=== PATIENT | female | born 1965 | race Caucasian/White ===

== ENCOUNTER 2017-03-05 17:36 | Emergency (ER) | payer MEDICARE, BC ==
[~2017-03-05] VITALS: Ht 177.8 cm; Wt 140.0 kg
[~2017-03-05 17:36] MED LIST: ACET650T5 PO; ALBU2.5V7 AEROSOL; ASEN10TA9 SL; ASPI-557 PO; ASPI325T PO; ATOR20TA PO; BACL10TA PO; BUPR-51 PO; BUPR300T33 PO; BUSP15TA37 PO; CETI10TA56 PO; ERGO400C PO; FLUT16SP EA NOSTRIL; FLUT1DIS INH; GABA-305 PO; GLIP5TAB11 PO; IBUP-1547 PO; MAGN400T6 PO; METF10002 PO; MIDO10TA PO; MIDO5TAB PO; NIAC100045 PO; OMEG1CAP79 PO; ONDA-55 PO; PANT20TA13 PO; QUET300T44 PO; SUMA50TA18 PO; TOPI200T8 PO; TRAM50TA4 PO; elderberry PO
[2017-03-05 17:40] VITALS: Ht 177.8 cm; Wt 140.0 kg
--- OUTSIDE RECORDS SUMMARY | 2017-03-05 17:40 | XMS REPORT | Continuity of Care Document ---
Author Author [facility] Organization [facility] Address Unknown Phone Unavailable Care Team Providers Care Remote Encoding Operations Supervisor Name Role Phone CALISTA MARSHALL MD Primary Care Physician [phone] Insurance Providers Payer Name Policy Number Subscriber Name Relationship [employer] Hmo [id number] Ellyn Rodríguez 20 Self Advance Directives Directive Response Recorded Date/Time Advanced Directives Type None 11/08/14 10:40am Problems Medical Problems Problem Onset Date Status Exacerbation of intermittent asthma Unknown Active Bronchitis Unknown Active Exacerbation of intermittent asthma Unknown Active Thrombocytopenia Unknown Active Pharyngitis, acute Unknown Active Exacerbation of intermittent asthma Unknown Active Ketonuria Unknown Active Exacerbation of intermittent asthma Unknown Active Medications Medication Dose Route Sig Days/Qty Instructions Order Date Discontinued Date Status Ipratropium/Albuterol Sulfate Mg INH NEEDED 12/17/10 06/17/13 Discontinued Albuterol Sulfate INH 12/17/10 06/17/13 Discontinued Budesonide 12/17/10 11/06/12 Discontinued Theophylline Anhydrous 450 Mg PO TWICE A DAY 12/17/10 11/06/12 Discontinued Buspirone Hcl 15 Mg PO TWICE A DAY 12/17/10 11/06/12 Discontinued Bupropion Hcl 150 Mg PO TWICE A DAY 12/17/10 06/17/13 Discontinued Duloxetine Hcl 60 Mg PO DAILY 12/17/10 11/06/12 Discontinued Insulin Glargine 180 Mg SQ BEDTIME 12/17/10 11/06/12 Discontinued Insulin Lispro SQ THREE TIMES A DAY 12/17/10 06/17/13 Discontinued Metformin Hcl 1,000 Mg PO TWICE A DAY 12/17/10 11/06/12 Discontinued Topiramate 400 Mg PO TWICE A DAY 12/17/10 Active Pregabalin 150 Mg PO TWICE A DAY 12/17/10 11/06/12 Discontinued Pregabalin 100 Mg PO DAILY 12/17/10 11/06/12 Discontinued Tizanidine Hcl 4 Mg PO THREE TIMES A DAY 12/17/10 Active Quetiapine Fumarate 100 Mg PO TWICE A DAY 12/17/10 Active Quetiapine Fumarate 300 Mg PO BEDTIME 12/17/10 11/06/12 Discontinued Cetirizine Hcl 10 Mg PO DAILY 12/17/10 Active Atorvastatin Calcium 20 Mg PO DAILY 12/17/10 11/06/12 Discontinued Metoclopramide Hcl 5 Mg PO FOUR TIMES DAILY 12/17/10 06/17/13 Discontinued Lansoprazole 30 Mg PO TWICE A DAY 12/17/10 11/06/12 Discontinued Salmeterol Xinafoate/Fluticasone INH BID PRN 11/06/12 06/17/13 Discontinued Buspirone Hcl 15 Mg PO TWICE A DAY 11/06/12 Active Omeprazole 20 Mg PO DAILY 11/06/12 06/17/13 Discontinued Quetiapine Fumarate 400 Mg PO BEDTIME 11/06/12 Active Lovastatin 40 Mg PO BEDTIME 11/06/12 06/17/13 Discontinued Metoprolol Tartrate 25 Mg TWICE A DAY 11/06/12 06/17/13 Discontinued Clobetasol Propionate 25 Ml TP DAILY 11/06/12 06/17/13 Discontinued Nystatin 15 Gm TP NEEDED 11/06/12 06/17/13 Discontinued Fluconazole 150 Mg PO DAILY PRN 11/06/12 06/17/13 Discontinued Sumatriptan Succinate 50 Mg PO 11/06/12 Active Glucosa [place] 2KCL/Chondroitin [place] 1 Cap PO TWICE A DAY 11/06/12 Discontinued Fluticasone Propionate 16 Gm NS DAILY 11/06/12 06/17/13 Discontinued Acetaminophen PO TID PRN 11/06/12 Active Bupropion Hcl 150 Mg PO DAILY 06/17/13 Active Cholecalciferol 800 Unit PO DAILY 06/17/13 Active Metformin HCl 1 Tab PO TWICE DAILY WITH MEALS Take one tablet, by mouth , twice daily with meals 11/08/14 Active Glipizide 11 Tab PO TWICE A DAY 11/08/14 Active Amoxicillin 1 Cap PO TWICE A DAY 11/08/14 Active Levofloxacin 500 Mg PO BEFORE BREAKFAST 10 Qty 11/08/14 Active Clotrimazole 1 Tab PO 5 TIMES DAILY 10 Days 11/08/14 Active Social History Social History Problem Response Recorded Date/Time Hx Substance Use No 11/08/2014 10:57am Hx Alcohol Use No 11/08/2014 10:57am Query Response Start Date Stop Date Smoking Status Never smoker Hospital Discharge Instructions No hospital discharge instructions. Plan of Care No plan of care. Functional Status Query Response Date Recorded Physical Hygiene Self November 08, 2014 10:57am Disabilities Visual November 08, 2014 10:57am Devices Used Glasses Cane November 08, 2014 10:57am Dressing Self November 08, 2014 10:57am Ambulation Self November 08, 2014 10:57am Diet Self November 08, 2014 10:57am Mental Status Alert Oriented November 08, 2014 10:57am Disabilities Visual November 08, 2014 10:57am Devices Used Glasses Cane November 08, 2014 10:57am Physical Hygiene Self November 08, 2014 10:57am Dressing Self November 08, 2014 10:57am Ambulation Self November 08, 2014 10:57am Diet Self November 08, 2014 10:57am Allergies, Adverse Reactions, Alerts Allergen Type Severity Reaction Status Last Updated hydrocodone bit Adverse Reaction Unknown ITCHING Active 11/08/14 Diazepam Allergy Unknown HAD TO HAVE ROMAZICON WITH IT Active 11/08/14 Latex Adverse Reaction Unknown ANALYPHAXYS Active 11/08/14 [place] Adverse Reaction Intermediate Vomiting Active 11/08/14 Egg Yolk Adverse Reaction Intermediate Active 12/18/10 Immunizations Name Given Type Hx Influenza Vaccination Y 2013 Historical Hx Influenza Vaccination Y 2013 Historical Vital Signs Acute Vital Signs Vital Response Date/Time Temperature (Fahrenheit) 100.4 deg F (96.8 - 99.1) Temperature (Calculated Celsius) 38.30683 degrees C (36.0 - 37.3) Pulse Rate (adult) 104 bpm (60 - 100) Respiratory Rate 24 breaths/min (10 - 20) O2 Sat by Pulse Oximetry 96 % (90 - 100) Blood Pressure 141/82 mm Hg Height 5 ft 10 in Weight 305 lb Body Mass Index 43.0 kg/m^2 Results Test Source Date Result Interp. Ref. Range Comments Activated Partial Thromboplast Time February 02, 2012 4:45pm 32.9 SEC N 24- 36 Alanine Aminotransferase (ALT/SGPT) November 08, 2014 11:31am 47 U/L N 9- 52 Albumin November 08, 2014 11:31am 4.3 G/DL N 3.5-5.0 Albumin/Globulin Ratio November 08, 2014 11:31am 1.1 RATIO N 1.1-2.2 Alkaline Phosphatase November 08, 2014 11:31am 183 U/L H 38-126 Anion Gap November 08, 2014 11:31am 17 MEQ/L H 5-15 Aspartate Amino Transf (AST/SGOT) November 08, 2014 11:31am 112 U/L H 14- 36 B-Type Natriuretic Peptide December 17, 2010 3:48pm 17 PG/ML N 15-100 BUN/Creatinine Ratio November 08, 2014 11:31am 31 RATIO H 6-26 Band Neutrophils # November 08, 2014 11:31am 0.2 T/MM3 - Band Neutrophils % November 08, 2014 11:31am 2.0 % N 0-6 Basophils # (Auto) November 06, 2012 5:35pm 0.1 T/MM3 N 0-0.2 Basophils (%) (Auto) November 06, 2012 5:35pm 0.9 % N 0-2 Blood Urea Nitrogen November 08, 2014 11:31am 25.0 MG/DL H 7-17 C-Peptide August 30, 2012 9:42am Ref lab rpt scanned - [facility]--- 06/10 0845 ---CPEP previously reported as: SENT OUT Calcium Level November 08, 2014 11:31am 8.7 MG/DL N 8.4-10.2 Calculated Osmolality November 08, 2014 11:31am 288 MOSM/KG H 261-280 Carbon Dioxide Level November 08, 2014 11:31am 15 MEQ/L L 22-30 Chloride Level November 08, 2014 11:31am 109 MEQ/L H 98-107 Cholesterol Level July 10, 2012 11:30am 155 MG/DL N 132-199 Cholesterol/HDL Ratio July 10, 2012 11:30am 4.0 RATIO N 0-4.0 Creatine Kinase MB February 03, 2012 4:36pm 1.6 NG/ML N 0-3.4 Creatinine November 08, 2014 11:31am 0.8 MG/DL N 0.7-1.2 D-Dimer February 02, 2012 4:45pm < 150 NG/ML 0-230 <224 NG/ML= PRESUMPTIVE NEGATIVE FOR PE OR DVT>224 NG/ML=ADDITIONAL EVALUATION FOR PE OR DVT RECOMMENDED Differential Total Cells Counted December 19, 2010 4:55am 100 % - Eosinophils # (Auto) November 06, 2012 5:35pm 0.2 T/MM3 N 0-0.5 Eosinophils # (Manual) November 08, 2014 11:31am 0.5 T/MM3 N 0-0.5 Eosinophils % (Manual) November 08, 2014 11:31am 6.0 % H 0-4 Eosinophils (%) (Auto) November 06, 2012 5:35pm 3.0 % N 0-4 Erythrocyte Sedimentation Rate August 04, 2009 9:46am 53 MM/HR H 0-20 Free Thyroxine August 04, 2009 9:46am 0.80 NG/DL N 0.78-2.19 Globulin November 08, 2014 11:31am 3.9 G/DL H 2.4-3.6 Glucose Level November 08, 2014 11:31am 333 MG/DL H 65-110 Glutamic Acid Decarboxylate Ab August 30, 2012 9:42am Ref lab rpt scanned - --- 09/06/12 0845 ---GLUTA previously reported as: SENT OUT Group A Streptococcus Screen November 08, 2014 11:20am Negative - Strep culture confirmation to follow Hematocrit November 08, 2014 11:31am 34.8 % L 36-46 Hemoglobin November 08, 2014 11:31am 11.6 GM/DL L 12-16 Hemoglobin A1c July 10, 2012 11:30am 11.4 % DH 6-7 <6.0 NON- DIABETIC RANGE6.0-7.0 ADA THERAPEUTIC RANGE >7.0 ACTION SUGGESTED Influenza Type A Antigen November 08, 2014 11:33am Negative - Negative for Flu A protein antigen. Assay sensitivity is90%. Influenza Type B Antigen November 08, 2014 11:33am Negative - Negative for Flu B protein antigen. Assay sensitivity is90%. LDL Cholesterol, Calculated July 10, 2012 11:30am 116 N 66-159 Lymphocytes # (Auto) November 06, 2012 5:35pm 3.3 T/MM3 N 1-4.8 Lymphocytes # (Manual) November 08, 2014 11:31am 2.8 T/MM3 N 1-4.8 Lymphocytes % (Manual) November 08, 2014 11:31am 31.0 % N 23-45 Lymphocytes (%) (Auto) November 06, 2012 5:35pm 41.0 % N 23-45 Magnesium Level December 18, 2010 4:45am 2.3 MG/DL N 1.6-2.3 Mean Corpuscular Hemoglobin November 08, 2014 11:31am 32.0 UUG N 26-34 Mean Corpuscular Hemoglobin Concent November 08, 2014 11:31am 33.3 GM/DL N 31-37 Mean Corpuscular Volume November 08, 2014 11:31am 96.1 UM3 N 80-100 Mean Platelet Volume November 08, 2014 11:31am 10.7 UM3 N 9.4-12.4 Metamyelocytes # December 19, 2010 4:55am 0.1 T/MM3 - Metamyelocytes % December 19, 2010 4:55am 1.0 % H 0-0 Monocytes # (Auto) November 06, 2012 5:35pm 0.5 T/MM3 N 0-0.8 Monocytes # (Manual) December 19, 2010 4:55am 0.7 T/MM3 N 0-0.8 Monocytes % (Manual) December 19, 2010 4:55am 5.0 % N 0-9.0 Monocytes (%) (Auto) November 06, 2012 5:35pm 6.3 % N 0-9.0 Neutrophils # (Auto) November 06, 2012 5:35pm 3.9 T/MM3 N 1.8-7.7 Neutrophils # (Manual) November 08, 2014 11:31am 5.5 T/MM3 N 1.8-7.7 Neutrophils % (Manual) November 08, 2014 11:31am 60.0 % N 33-66 Neutrophils (%) (Auto) November 06, 2012 5:35pm 48.6 % N 33-66 Nucleated Red Blood Cells December 19, 2010 4:55am 2 - Parathyroid Hormone (Intact) February 20, 2010 10:19am 77.1 PG/ML N 8.2- 83.5 Platelet Count November 08, 2014 11:31am 61 T/MM3 L 130-400 Potassium Level November 08, 2014 11:31am 4.4 MEQ/L N 3.6-5 Prothromb Time International Ratio February 02, 2012 4:45pm 1.16 H 0.86- 1.10 THERAPUTIC RANGE=2.00-3.00 FOR ANTI-THROMBOSIS THERAPUTIC RANGE=2.50- 3.50 FOR IMPLANTED VALVE RDW Standard Deviation November 08, 2014 11:31am 50.2 FL N 36.9-50.2 Rapid Plasma Reagin August 04, 2009 9:46am Nonreactive - Red Blood Count November 08, 2014 11:31am 3.62 M/MM3 L 4.00-5.20 Reference Lab Test Name August 30, 2012 9:42am Ref lab rpt scanned - --- 09/06/12 0845 ---SO previously reported as: SENT OUT Sodium Level November 08, 2014 11:31am 141 MEQ/L N 134-144 Theophylline Level December 18, 2010 4:45am 8.1 UG/ML L 10-20 COMMENT may use blood in lab - if not able, may run in amCOMMENT may use blood in lab, if not able - run tommorrow am Thyroid Stimulating Hormone (TSH) April 10, 2012 9:10am 1.29 MIU/L N 0.47 -4.68 Total Bilirubin November 08, 2014 11:31am 0.60 MG/DL N 0.20-1.30 Total Creatine Kinase February 03, 2012 4:36pm 79 U/L N 30-135 Total Protein November 08, 2014 11:31am 8.2 G/DL N 6.3-8.2 Triglycerides Level July 10, 2012 11:30am 400 MG/DL H 35-135 Troponin I November 08, 2014 11:31am < 0.012 ng/ml 0-0.12 Urine Bacteria November 08, 2014 1:20pm None seen - Has specimen been collected/obtained? Y Urine Bilirubin November 08, 2014 1:20pm Negative - Has specimen been collected/obtained? Y Urine Blood November 08, 2014 1:20pm Negative - Has specimen been collected/obtained? Y Urine Collection Type November 08, 2014 1:20pm Cleancatch-midstream - Has specimen been collected/obtained? Y Urine Color November 08, 2014 1:20pm Yellow - Has specimen been collected/obtained? Y Urine Drug Screen (T) April 10, 2012 9:15am Sent out - Urine Glucose (UA) November 08, 2014 1:20pm Negative - Has specimen been collected/obtained? Y Urine Ketones November 08, 2014 1:20pm 2+ H - Has specimen been collected/obtained? Y Urine Leukocyte Esterase November 08, 2014 1:20pm Negative - Has specimen been collected/obtained? Y Urine Microalbumin January 03, 2012 8:40am < 5.0 MG/L 0-17 Urine Nitrite November 08, 2014 1:20pm Negative - Has specimen been collected/obtained? Y Urine Protein November 08, 2014 1:20pm 1+ H - Has specimen been collected/obtained? Y Urine RBC November 08, 2014 1:20pm 0-1 /HPF - Has specimen been collected/obtained? Y Urine Specific [place] November 08, 2014 1:20pm 1.020 - Has specimen been collected/obtained? Y Urine Squamous Epithelial Cells November 08, 2014 1:20pm 0-5 - Has specimen been collected/obtained? Y Urine Turbidity November 08, 2014 1:20pm Clear - Has specimen been collected/obtained? Y Urine Urobilinogen November 08, 2014 1:20pm 0.2 EU/DL - Has specimen been collected/obtained? Y Urine WBC November 08, 2014 1:20pm 1-3 /HPF - Has specimen been collected/obtained? Y Urine pH November 08, 2014 1:20pm 6.0 - Has specimen been collected/ obtained? Y VLDL Cholesterol July 10, 2012 11:30am 80.0 MG/DL H 0-28 Vitamin B12 Level August 04, 2009 9:46am 967 PG/ML H 239-931 Vitamin D 25-Hydroxy February 20, 2010 10:19am Send out - White Blood Count November 08, 2014 11:31am 9.1 T/MM3 N 4.5-11.0 Chemistry Specimen Hemolysis November 08, 2014 11:31am 46 H 0-25 0-25: No Hemolysis.26-70: Slight Hemolysis - can falsely elevate K and Urine Protein. 71-285: Moderate Hemolysis - can falsely elevate K, Troponin I, CA 19-9, PTH, CSF GLucose, and Urine Protein, and can falsely decrease Phenytoin. 286-999: Gross Hemolysis - can falsely elevate K, Troponin I, CA 19-9, PTH, CSF Glucose, and Urine Protine, and can falsely decrease Phenytoin. Recommend specimen recollection. Glucometer March 23, 2013 9:50am 345 mg/dL H 65-110 Lab Scanned Report September 06, 2012 8:50am REFERENCE LAB [id number] - HDL Cholesterol Direct July 10, 2012 11:30am 39 MG/DL L 40-60 Turbidity November 08, 2014 11:31am < 20 0-20 Reactive Lymphocytes % November 08, 2014 11:31am 1.0 % H 0-0 Glomerular Filtration Rate Calc November 08, 2014 11:31am 77 - Reactive Lymphocytes # November 08, 2014 11:31am 0.1 T/MM3 H 0-0 Immature Granulocyte # (Auto) November 06, 2012 5:35pm 0.02 T/MM3 N 0.00- 0.03 Immature Granulocyte % (Auto) November 06, 2012 5:35pm 0.2 % N 0.0-0.5 Venous Blood Lactate November 08, 2014 11:31am 1.3 MMOL/L N 0.6-2.2 Icterus Index November 08, 2014 11:31am < 2 0-7 Urine Microscopic Not Indicated December 17, 2010 4:55pm Not indicated - Has specimen been collected/obtained? Y Group A Streptococcus Culture Throat December 17, 2010 4:41pm Urine Culture Urine, Clean Catch Voided February 20, 2010 10:06am Gram Positive Don JESSICA Preparation Mouth November 08, 2014 12:31pm Name: ELLYN RODRÍGUEZ Unit #: [id number] : [id number] Sex: F Loc / Svc: ED DOS: 11/08/14 Signed Report #: [id number] DIAGNOSTIC IMAGING REPORT TYPE OF EXAM: CHEST, PA & LATERAL Dictated By: SHAAN PRUETT MD INDICATION: ITS.REASON: dyspnea, cough CHEST 2-VIEWS UPRIGHT (PA & LAT): COMPARISON: February 02, 2012 and December 17, 2010 FINDINGS: There is questionable increased opacity in the medial right lung base seen on the frontal view only. The remainder of the lung green appear clear. There is no pleural effusion or pneumothorax. The heart size, mediastinal contours and pulmonary vascularity are within normal limits. There is no significant skeletal abnormality. IMPRESSION: Questionable increased opacity in the right infrahilar area of the medial right lung base seen on one view only. This could represent atelectasis, bronchitis or pneumonia. . Procedures No known history of procedures. Encounters Encounter Location Date/Time Departed Emergency Room [facility] 11/08/14 10:37am Recent Diagnosis
--- OUTSIDE RECORDS SUMMARY | 2017-03-05 17:41 | XMS REPORT ---
Author Author Abelino Boothe Organization [facility] Address [address] [place] [address] Care Team Providers Care Harbor Tug Captain Name Role Phone Abelino Boothe Unavailable [phone] PROBLEMS Type Condition ICD9-CM Code [id number] Code Onset Dates Condition Status SNOMED Code Problem Hypotension I95.9 Active 20403013 Problem Chest discomfort R07.89 Active 241948388 Problem Dyspnea on effort R06.09 Active 63112058 Problem Dyslipidemia E78.5 Active 427752096 ALLERGIES Unknown Allergies SOCIAL HISTORY No smoking Hx information available PLAN OF CARE VITAL SIGNS MEDICATIONS Unknown Medications RESULTS No Results PROCEDURES No Known procedures IMMUNIZATIONS No Known Immunizations
--- OUTSIDE RECORDS SUMMARY | 2017-03-05 17:42 | XMS REPORT | Continuity of Care Document ---
Author Author [facility] Organization [facility] Address Unknown Phone Unavailable Care Team Providers Care Email Marketing Coordinator Name Role Phone CALISTA MARSHALL MD Primary Care Physician [phone] Insurance Providers Payer Name Policy Number Subscriber Name Relationship [employer]humana Gold Hmo [id number] Ellyn Farr 20 Self Advance Directives Directive Response Recorded Date/Time Advanced Directives Type None 11/09/14 9:14pm Ordered Resuscitation Status Full Code 11/09/14 8:56pm Resuscitation Documents on File No 11/09/14 10:21pm Chief Complaint and Reason for Visit Chief Complaint DEHYDRATION,PHARYNGITIS Reason for Visit Bronchitis Pharyngitis Dehydration Diabetes mellitus type 2, uncontrolled Fibromyalgia Hyperosmolality with hypernatremia Morbid obesity with BMI of 40.0-44.9, adult SIRS (systemic inflammatory response syndrome) Wound, open, hip or thigh Hypokalemia Metabolic encephalopathy Metabolic acidosis Protein calorie malnutrition Thrombocytopenia Problems Medical Problems Problem Onset Date Status Exacerbation of intermittent asthma Unknown Active Bronchitis Unknown Active Exacerbation of intermittent asthma Unknown Active Thrombocytopenia Unknown Active Pharyngitis, acute Unknown Active Exacerbation of intermittent asthma Unknown Active Ketonuria Unknown Active Exacerbation of intermittent asthma Unknown Active Bronchitis Unknown Active Pharyngitis Unknown Active Dehydration Unknown Active Diabetes mellitus type 2, uncontrolled Unknown Active Fibromyalgia Unknown Active Hyperosmolality with hypernatremia Unknown Active Morbid obesity with BMI of 40.0-44.9, adult Unknown Active SIRS (systemic inflammatory response syndrome) Unknown Active Wound, open, hip or thigh Unknown Active Hypokalemia Unknown Active Metabolic encephalopathy Unknown Active Metabolic acidosis Unknown Active Protein calorie malnutrition Unknown Active Thrombocytopenia Unknown Active Medications Medication Dose Route Sig [...] 11 Tab PO TWICE A DAY 11/08/14 11/15/14 Discontinued Amoxicillin 1 Cap PO TWICE A DAY 11/08/14 11/15/14 Discontinued Levofloxacin 500 Mg PO BEFORE BREAKFAST 10 Qty 11/08/14 11/15/14 Discontinued Clotrimazole 1 Tab PO 5 TIMES DAILY 10 Days 11/08/14 Active Insulin Glargine,Hum.rec.anlog 10 Unit SQ BEDTIME 30 Days 11/15/14 Active Ondansetron HCl 4 Mg PO Every 6 Hours For NAUSEA 20 Qty 11/15/14 Active Potassium Chloride 20 Meq PO TWICE A DAY 14 Days 11/15/14 Active Social History Social History Problem Response Recorded Date/Time Hx Substance Use No 11/09/2014 4:59pm Hx Alcohol Use No 11/09/2014 4:59pm Has the pt used tobacco in the last 12 months No 11/09/2014 10:24pm Tobacco Usage none 11/10/2014 10:35am Query Response Start Date Stop Date Smoking Status Never smoker Hospital Discharge Instructions Instructions: Care Instructions: Reason for Hospitalization: Dehydration, mental status change I was in the hospital because (patient own words): "THROAT PAIN" Discharge Diet: Diabetic regular Discharge Activity: as tolerated Follow Up Appointments: Follow up with Dr. Marshall on Feb 3rd at 10:15AM. Patient Instructions: n/a Wound/Incision Care: n/a Durable Medical Equipment: n/a Notify Physician If: fever > 101, worsening confusion General Information: n/a Condition at time of discharge: Good Plan of Care Discharge Date 11/15/14 4:30pm Disposition 01 DISCHARGED HOME, SELF-CARE Instructions/Education Provided DI for Dehydration -- Adult DI for Diabetes Type 2 DI for Viral Pharyngitis Prescriptions See Medications Section Functional Status Query Response Date Recorded Physical Hygiene Assist November 15, 2014 2:23pm Disabilities None November 15, 2014 2:23pm Devices Used None November 15, 2014 2:23pm Dressing Assist November 15, 2014 2:23pm Ambulation Assist November 15, 2014 2:23pm Diet Assist November 15, 2014 2:23pm Mental Status Alert November 15, 2014 2:23pm Disabilities None November 15, 2014 2:23pm Devices Used None November 15, 2014 2:23pm Physical Hygiene Assist November 15, 2014 2:23pm Dressing Assist November 15, 2014 2:23pm Ambulation Assist November 15, 2014 2:23pm Diet Assist November 15, 2014 2:23pm Allergies, Adverse Reactions, Alerts Allergen Type Severity Reaction Status Last Updated hydrocodone bit Adverse Reaction Unknown ITCHING Active 11/08/14 Diazepam Allergy Unknown HAD TO HAVE ROMAZICON WITH IT Active 11/08/14 Latex Adverse Reaction Unknown ANALYPHAXYS Active 11/08/14 [place] Adverse Reaction Intermediate Vomiting Active 11/08/14 Egg Yolk Adverse Reaction Intermediate Active 12/18/10 Immunizations Name Given Type Hx Influenza Vaccination Y UNSURE-PATIENT IS CONFUSED Historical Hx Pneumococcal Vaccination Y UNSURE-PATIENT IS CONFUSED Historical Hx Influenza Vaccination Y UNSURE-PATIENT IS CONFUSED Historical Vital Signs Acute Vital Signs Vital Response Date/Time Temperature (Fahrenheit) 97.4 deg F (96.8 - 99.1) Temperature (Calculated Celsius) 36.22651 degrees C (36.0 - 37.3) Temperature Source Oral Pulse Rate (adult) 107 bpm (60 - 100) Respiratory Rate 17 breaths/min (10 - 20) O2 Sat by Pulse Oximetry 94 % (90 - 100) Oxygen Delivery Method Room Air Blood Pressure 127/54 mm Hg Blood Pressure Source Automatic Cuff Height 5 ft 10 in Weight 305 lb Body Mass Index 43.0 kg/m^2 Results Test Source Date Result Interp. Ref. Range Comments Platelet Antibody Comment November 12, 2014 7:01pm See below - Antibody reacts with glycoprotein Ia/IIa, probable antibodyspecificity HPA-5b [ Bra]. ADDITIONAL INFORMATION Method: Jenae Based Assay Performing Laboratory CLIA# [id number] Test Performed by: [place] [address] Command And Control: Blayne Nascimento M.D. Platelet Antibody performed at [facility], [address] [place] [address] Head Of Marketing Analytics Oleksandr Jeffers MD Anti-Platelet Antibody November 12, 2014 7:01pm Positive - Reference Range:Not Applicable Absolute Reticulocyte Count November 11, 2014 8:32am 0.0162 T/MM3 L 0.0300-0.0900 COMMENT Add on - blood already in lab Activated Partial Thromboplast Time November 11, 2014 8:32am 30.8 SEC N 24-36 COMMENT Add on - blood already in lab Alanine Aminotransferase (ALT/SGPT) November 12, 2014 7:01pm 71 U/L H 9- 52 Albumin November 12, 2014 7:01pm 3.8 G/DL N 3.5-5.0 Albumin/Globulin Ratio November 12, 2014 7:01pm 1.1 RATIO N 1.1-2.2 Alkaline Phosphatase November 12, 2014 7:01pm 129 U/L H 38-126 Ammonia November 12, 2014 7:01pm 18 UMOL/L N 9-33 Anion Gap November 15, 2014 4:42am 9 MEQ/L N 5-15 Anisocytosis November 15, 2014 4:42am 1+ - Anti-Centromere Antibody November 12, 2014 7:01pm 5 U/mL - Anti-Double Strand DNA Antibody November 12, 2014 7:01pm 4 U/mL - Anti-Nuclear Antibody (LAB) November 12, 2014 7:01pm Positive H - RENO Panel, Quantitative performed at [facility], [address] [place] [id number] Head Of Marketing Analytics Hansel Irwin DO Anti-Nuclear Antibody Interpret November 12, 2014 7:01pm see below - < 100 U/mL: [id number] U/mL: Indeterminate >120 U/mL: Positive Aspartate Amino Transf (AST/SGOT) November 12, 2014 7:01pm 81 U/L H 14- 36 B-Type Natriuretic Peptide December 17, 2010 3:48pm 17 PG/ML N 15-100 BUN/Creatinine Ratio November 15, 2014 4:42am 11 RATIO N 6-26 Band Neutrophils # November 15, 2014 4:42am 0.2 T/MM3 - Band Neutrophils % November 15, 2014 4:42am 2.0 % N 0-6 Basophils # (Auto) November 06, 2012 5:35pm 0.1 T/MM3 N 0-0.2 Basophils # (Manual) November 15, 2014 4:42am 0.1 T/MM3 N 0-0.2 Basophils % (Manual) November 15, 2014 4:42am 1.0 % N 0-2 Basophils (%) (Auto) November 06, 2012 5:35pm 0.9 % N 0-2 Blood Smear Pathologist Review November 11, 2014 8:33am Sent for review - COMMENT Add on - blood already in lab Blood Urea Nitrogen November 15, 2014 4:42am 9.0 MG/DL N 7-17 C-Peptide August 30, 2012 9:42am Ref lab rpt scanned - AMS--- 06/10 0845 ---CPEP previously reported as: SENT OUT C-Reactive Protein November 13, 2014 4:27am 48.9 MG/L H 0-9 Calcium Level November 15, 2014 4:42am 8.1 MG/DL L 8.4-10.2 Calculated Osmolality November 15, 2014 4:42am 265 MOSM/KG N 261-280 Carbon Dioxide Level November 15, 2014 4:42am 20 MEQ/L L 22-30 Chemistry Specimen Hemolysis November 15, 2014 4:42am < 15 0-25 0-25: No Hemolysis.26-70: Slight Hemolysis - can falsely elevate K and Urine Protein. 71-285: Moderate Hemolysis - can falsely elevate K, Troponin I, CA 19-9, PTH, CSF GLucose, and Urine Protein, and can falsely decrease Phenytoin. 286-999: Gross Hemolysis - can falsely elevate K, Troponin I, CA 19-9, PTH, CSF Glucose, and Urine Protine, and can falsely decrease Phenytoin. Recommend specimen recollection. Chloride Level November 15, 2014 4:42am 109 MEQ/L H 98-107 Cholesterol Level July 10, 2012 11:30am 155 MG/DL N 132-199 Cholesterol/HDL Ratio July 10, 2012 11:30am 4.0 RATIO N 0-4.0 Conjugated Bilirubin November 12, 2014 7:01pm 0.00 MG/DL N 0.00-0.30 Creatine Kinase MB February 03, 2012 4:36pm 1.6 NG/ML N 0-3.4 Creatinine November 15, 2014 4:42am 0.8 MG/DL N 0.7-1.2 D-Dimer November 11, 2014 4:15pm 1193 NG/ML H 0-230 <230 NG/ML D-DU= PRESUMPTIVE NEGATIVE FOR PE OR DVT>230 NG/ML D-DU=ADDITIONAL EVAL FOR PE OR DVT RECOMMENDED Differential Total Cells Counted December 19, 2010 4:55am 100 % - Eosinophils # (Auto) November 06, 2012 5:35pm 0.2 T/MM3 N 0-0.5 Eosinophils # (Manual) November 15, 2014 4:42am 0.3 T/MM3 N 0-0.5 Eosinophils % (Manual) November 15, 2014 4:42am 3.0 % N 0-4 Eosinophils (%) (Auto) November 06, 2012 5:35pm 3.0 % N 0-4 Erythrocyte Sedimentation Rate November 12, 2014 7:01pm 69 MM/HR H 0-20 Ferritin November 14, 2014 4:30am 845 NG/ML H 6-137 COMMENT Add on - blood already in lab Fibrinogen November 11, 2014 8:32am 347 MG/DL N 135-357 COMMENT Add on - blood already in lab Free Thyroxine August 04, 2009 9:46am 0.80 NG/DL N 0.78-2.19 Globulin November 12, 2014 7:01pm 3.5 G/DL N 2.4-3.6 Glomerular Filtration Rate Calc November 15, 2014 4:42am 77 - Glucometer November 15, 2014 11:10am 133 mg/dL H 65-110 Glucose Level November 15, 2014 4:42am 96 MG/DL N 65-110 Glutamic Acid Decarboxylate Ab August 30, 2012 9:42am Ref lab rpt scanned - --- 09/06/12 0845 ---GLUTA previously reported as: SENT OUT Group A Streptococcus Screen November 08, 2014 11:20am Negative - Strep culture confirmation to follow HDL Cholesterol Direct July 10, 2012 11:30am 39 MG/DL L 40-60 Haptoglobin November 11, 2014 8:32am 286 mg/dL H - Haptoglobin performed at [facility], [address], [place] [id number] Director Hansel Irwin, DO Hematocrit November 15, 2014 4:42am 27.1 % L 36-46 Hemoglobin November 15, 2014 4:42am 8.9 GM/DL L 12-16 Hemoglobin A1c November 09, 2014 5:36pm 8.9 % H 6-7 <6.0 NON-DIABETIC RANGE6.0-7.0 ADA THERAPEUTIC RANGE >7.0 ACTION SUGGESTED Hepatitis C Antibody November 11, 2014 8:32am Negative - COMMENT Add on - blood already in lab Histone Antibodies November 12, 2014 7:01pm 8 U/mL - RENO, Quant Add On performed at [facility], [address] [place], [place] Head Of Marketing Analytics Hansel Irwin, DO Icterus Index November 15, 2014 4:42am < 2 0-7 Immature Granulocyte # (Auto) November 06, 2012 5:35pm 0.02 T/MM3 N 0.00- 0.03 Immature Granulocyte % (Auto) November 06, 2012 5:35pm 0.2 % N 0.0-0.5 Immature Reticulocyte Fraction November 11, 2014 8:32am 25.2 % H 3.3- 14.5 COMMENT Add on - blood already in lab Influenza Type A Antigen November 08, 2014 11:33am Negative - Negative for Flu A protein antigen. Assay sensitivity is90%. Influenza Type B Antigen November 08, 2014 11:33am Negative - Negative for Flu B protein antigen. Assay sensitivity is90%. Iron Level November 14, 2014 4:30am 34 UG/DL L 37-170 COMMENT Add on - blood already in lab JULIAN-1 Antibody November 12, 2014 7:01pm 14 U/mL - LDL Cholesterol, Calculated July 10, 2012 11:30am 116 N 66-159 Lab Scanned Report November 09, 2014 7:39pm REFERENCE LAB [id number] - Lactate Dehydrogenase November 11, 2014 8:32am 2523 U/L H 313-618 COMMENT Add on - blood already in lab Lymphocytes # (Auto) November 06, 2012 5:35pm 3.3 T/MM3 N 1-4.8 Lymphocytes # (Manual) November 15, 2014 4:42am 4.7 T/MM3 N 1-4.8 Lymphocytes % (Manual) November 15, 2014 4:42am 41.0 % N 23-45 Lymphocytes (%) (Auto) November 06, 2012 5:35pm 41.0 % N 23-45 Magnesium Level November 14, 2014 4:30am 1.6 MG/DL N 1.6-2.3 COMMENT Add on - blood already in lab Mean Corpuscular Hemoglobin November 15, 2014 4:42am 31.6 UUG N 26-34 Mean Corpuscular Hemoglobin Concent November 15, 2014 4:42am 32.8 GM/DL N 31-37 Mean Corpuscular Volume November 15, 2014 4:42am 96.1 UM3 N 80-100 Mean Platelet Volume November 15, 2014 4:42am 12.4 UM3 N 9.4-12.4 Metamyelocytes # December 19, 2010 4:55am 0.1 T/MM3 - Metamyelocytes % December 19, 2010 4:55am 1.0 % H 0-0 Monocytes # (Auto) November 06, 2012 5:35pm 0.5 T/MM3 N 0-0.8 Monocytes # (Manual) November 15, 2014 4:42am 0.5 T/MM3 N 0-0.8 Monocytes % (Manual) November 15, 2014 4:42am 4.0 % N 0-9.0 Monocytes (%) (Auto) November 06, 2012 5:35pm 6.3 % N 0-9.0 Monoscreen November 09, 2014 5:10pm Negative - Neutrophils # (Auto) November 06, 2012 5:35pm 3.9 T/MM3 N 1.8-7.7 Neutrophils # (Manual) November 15, 2014 4:42am 5.6 T/MM3 N 1.8-7.7 Neutrophils % (Manual) November 15, 2014 4:42am 49.0 % N 33-66 Neutrophils (%) (Auto) November 06, 2012 5:35pm 48.6 % N 33-66 Nucleated Red Blood Cells November 15, 2014 4:42am 1 - Parathyroid Hormone (Intact) February 20, 2010 10:19am 77.1 PG/ML N 8.2- 83.5 Percent Reticulocyte Count November 11, 2014 8:32am 0.5 % L 0.6-1.7 COMMENT Add on - blood already in lab Platelet Count November 15, 2014 4:42am 89 T/MM3 L 130-400 Polychromasia November 15, 2014 4:42am 1+ - Potassium Level November 15, 2014 4:42am 3.2 MEQ/L L 3.6-5 Prealbumin November 13, 2014 4:27am 11.6 MG/DL L 17.6-36.0 COMMENT Add on - blood already in lab Procalcitonin November 09, 2014 5:56pm 0.18 NG/ML - PCT </=0.5 ng/mL - sepsis not likely;PCT >0.5 and </=2 ng/mL - sepsis possible; PCT >2 ng/mL - sepsis likely; PCT >/=10 ng/mL - systemic inflammatory response - sepsis or septic shock highly indicated. Prothromb Time International Ratio November 11, 2014 8:32am 1.68 H 0.81- 1.09 THERAPUTIC RANGE=2.00-3.00 FOR ANTI-THROMBOSIS THERAPUTIC RANGE=2.50- 3.50 FOR IMPLANTED VALVE RDW Standard Deviation November 15, 2014 4:42am 50.3 FL H 36.9-50.2 MOTEL KEEPER Antibody November 12, 2014 7:01pm 148 U/mL H - Rapid Plasma Reagin August 04, 2009 9:46am Nonreactive - Reactive Lymphocytes # November 14, 2014 4:30am 0.3 T/MM3 H 0-0 Reactive Lymphocytes % November 14, 2014 4:30am 2.0 % H 0-0 Red Blood Count November 15, 2014 4:42am 2.82 M/MM3 L 4.00-5.20 Reference Lab Test Name August 30, 2012 9:42am Ref lab rpt scanned - --- 09/06/12 0845 ---SO previously reported as: SENT OUT Reticulocyte Hgb Content (CHr) November 11, 2014 8:32am 30.7 PG L 30.8- 36.6 COMMENT Add on - blood already in lab SS-A/Ro Antibody November 12, 2014 7:01pm 60 U/mL - SS-B/La Antibody November 12, 2014 7:01pm 23 U/mL - Scl-70 (Scleroderma) Antibody November 12, 2014 7:01pm 208 U/mL H - Sm (Gee) Antibody November 12, 2014 7:01pm 17 U/mL - Smudge Cells November 13, 2014 4:27am 1+ - Sodium Level November 15, 2014 4:42am 138 MEQ/L N 134-144 Theophylline Level December 18, 2010 4:45am 8.1 UG/ML L 10-20 COMMENT may use blood in lab - if not able, may run in amCOMMENT may use blood in lab, if not able - run tommorrow am Thyroid Stimulating Hormone (TSH) November 12, 2014 7:01pm 1.63 MIU/L N 0.47-4.68 Total Bilirubin November 12, 2014 7:01pm 0.90 MG/DL N 0.20-1.30 Total Creatine Kinase February 03, 2012 4:36pm 79 U/L N 30-135 Total Protein November 12, 2014 7:01pm 7.3 G/DL N 6.3-8.2 Triglycerides Level July 10, 2012 11:30am 400 MG/DL H 35-135 Troponin I November 09, 2014 5:56pm < 0.012 ng/ml 0-0.12 Turbidity November 15, 2014 4:42am < 20 0-20 Unconjugated Bilirubin November 12, 2014 7:01pm 0.30 MG/DL N 0.00-1.10 Urine Bacteria November 09, 2014 7:00pm None seen - Has specimen been collected/obtained? Y Urine Bilirubin November 09, 2014 7:00pm Negative - Has specimen been collected/obtained? Y Urine Blood November 09, 2014 7:00pm Trace-lysed H - Has specimen been collected/obtained? Y Urine Collection Type November 09, 2014 7:00pm Cleancatch-midstream - Has specimen been collected/obtained? Y Urine Color November 09, 2014 7:00pm Yellow - Has specimen been collected/obtained? Y Urine Drug Screen (T) April 10, 2012 9:15am Sent out - Urine Glucose (UA) November 09, 2014 7:00pm 2+ H - Has specimen been collected/obtained? Y Urine Ketones November 09, 2014 7:00pm 3+ H - Has specimen been collected/obtained? Y Urine Leukocyte Esterase November 09, 2014 7:00pm Negative - Has specimen been collected/obtained? Y Urine Microalbumin January 03, 2012 8:40am < 5.0 MG/L 0-17 Urine Microscopic Not Indicated December 17, 2010 4:55pm Not indicated - Has specimen been collected/obtained? Y Urine Nitrite November 09, 2014 7:00pm Negative - Has specimen been collected/obtained? Y Urine Protein November 09, 2014 7:00pm 2+ H - Has specimen been collected/obtained? Y Urine RBC November 09, 2014 7:00pm None seen /HPF - Has specimen been collected/obtained? Y Urine Specific [place] November 09, 2014 7:00pm 1.020 - Has specimen been collected/obtained? Y Urine Squamous Epithelial Cells November 09, 2014 7:00pm None seen - Has specimen been collected/obtained? Y Urine Turbidity November 09, 2014 7:00pm Clear - Has specimen been collected/obtained? Y Urine Urobilinogen November 09, 2014 7:00pm 0.2 EU/DL - Has specimen been collected/obtained? Y Urine WBC November 09, 2014 7:00pm None seen /HPF - Has specimen been collected/obtained? Y Urine pH November 09, 2014 7:00pm 6.0 - Has specimen been collected/ obtained? Y VLDL Cholesterol July 10, 2012 11:30am 80.0 MG/DL H 0-28 Venous Blood Lactate November 09, 2014 5:56pm 1.7 MMOL/L N 0.6-2.2 Vitamin B12 Level August 04, 2009 9:46am 967 PG/ML H 239-931 Vitamin D 25-Hydroxy February 20, 2010 10:19am Send out - White Blood Count November 15, 2014 4:42am 11.5 T/MM3 H 4.5-11.0 Blood Culture Peripheral Blood November 13, 2014 7:51am NO GROWTH AFTER 48 HOURS Group A Streptococcus Culture Throat November 08, 2014 12:15pm Urine Culture Urine, Clean Catch Voided February 20, 2010 10:06am Gram Positive Don JESSICA Preparation Mouth November 08, 2014 12:31pm Name: ELLYN FARR Unit #: [id number] : [id number] Sex: F Loc / Sv: MED DOS: 11/09/14 Signed Report #: [id number] DIAGNOSTIC IMAGING REPORT TYPE OF EXAM: CTA PULMONARY EMBOLI Dictated By: SHAAN PRUETT MD INDICATION: ITS.REASON: Elevated d dimer, tachycardia CTA PULMONARY EMBOLI: Comparison: None Technique: Axial CT pulmonary angiographic phase images were performed through the chest after the administration of intravenous contrast. Coronal MIP reformats. Contrast: Omnipaque 350 74 mL Findings: Pulmonary arteries: Exam is limited by patient body habitus and soft tissue attenuation. Pulmonary arteries are suboptimally opacified. There is no obvious large central or interlobar-sized pulmonary embolus. The segmental and subsegmental branches cannot be adequately evaluated. Other findings: No pneumothorax. Significant motion artifact limits the detection for small nodules. No effusion or focal consolidated region. Central airways are patent. Prominent axillary lymph nodes with fatty cathleen. No mediastinal lymphadenopathy. Trace pericardial effusion. The upper abdomen shows no gross abnormality. Impression: Limited exam with no large or central pulmonary embolus. No clear etiology for the patient's symptoms. There is a preliminary report by virtual radiologic. . Procedures Procedure Status Date Provider(s) ROUTINE VENIPUNCTURE completed 11/08/14 CHEST X-RAY 2VW FRONTAL&LATL completed 11/08/14 COMPREHEN METABOLIC PANEL completed 11/08/14 URINALYSIS AUTO W/SCOPE completed 11/08/14 ASSAY OF LACTIC ACID completed 11/08/14 ASSAY OF TROPONIN QUANT completed 11/08/14 BL SMEAR W/DIFF WBC COUNT completed 11/08/14 COMPLETE CBC AUTOMATED completed 11/08/14 BLOOD CULTURE FOR BACTERIA completed 11/08/14 BLOOD CULTURE FOR BACTERIA completed 11/08/14 TISSUE EXAM FOR FUNGI completed 11/08/14 INFLUENZA A/B AG EIA completed 11/08/14 STREP A AG EIA completed 11/08/14 HYDRATION IV INFUSION INIT completed 11/08/14 JAGDEEP ARMSTRONG MD EMERGENCY DEPT VISIT completed 11/08/14 [id number] ITEM OR SERVICE completed 11/08/14 [id number]"INFUSION, NORMAL SALINE SOLUTION , 1000 CC" completed 11/08/14 [id number]"INFUSION, NORMAL SALINE SOLUTION , 1000 CC" completed 11/08/14 Encounters Encounter Location Date/Time Discharged Inpatient [facility] 11/11/14 1:08pm Departed Emergency Room [facility] 11/08/14 10:37am Recent Diagnosis Bronchitis Pharyngitis Dehydration Diabetes mellitus type 2, uncontrolled Fibromyalgia Hyperosmolality with hypernatremia Morbid obesity with BMI of 40.0-44.9, adult SIRS (systemic inflammatory response syndrome) Wound, open, hip or thigh Hypokalemia Metabolic encephalopathy Metabolic acidosis Protein calorie malnutrition Thrombocytopenia
--- OUTSIDE RECORDS SUMMARY | 2017-03-05 17:43 | XMS REPORT | Continuity of Care Document ---
Author Author [facility] Organization [facility] Address Unknown Phone Unavailable Care Team Providers Care Receiving Coordinator Name Role Phone CALISTA MARSHALL MD Primary Care Physician [phone] Insurance Providers Payer Name Policy Number Subscriber Name Relationship [employer]hum[employer] Gold Hmo [id number] Ellyn Rodríguez 20 Self Advance Directives Directive Response Recorded Date/Time Advanced Directives Type None 11/20/14 7:01pm Ordered Resuscitation Status Full Code 11/20/14 6:23pm Chief Complaint and Reason for Visit Chief Complaint GENERALIZED WEAKNESS/FALLS Reason for Visit Wound, open, hip or thigh Generalized weakness Generalized weakness Falls Type II diabetes mellitus Morbid obesity Depression Fibromyalgia Anemia Acute kidney injury Otalgia of right ear Problems Medical Problems Problem Onset Date Status [...] calorie malnutrition Unknown Active Thrombocytopenia Unknown Active Generalized weakness Unknown Active Generalized weakness Unknown Active Falls Unknown Active Type II diabetes mellitus Unknown Active Morbid obesity Unknown Active Depression Unknown Active Fibromyalgia Unknown Active Anemia Unknown Active Acute kidney injury Unknown Active Otalgia of right ear Unknown Active Medications Medication Dose Route Sig [...] 11/06/12 Discontinued Tizanidine Hcl 4 Mg PO Every 6 Hours PRN PRN ORDERS 12/17/10 Active Quetiapine Fumarate 100 Mg PO [...] Discontinued Sumatriptan Succinate 50 Mg PO 11/06/12 11/27/14 Discontinued Glucosa [place] 2KCL/Chondroitin [place] 1 Cap PO TWICE A DAY 11/06/12 Discontinued Fluticasone Propionate 16 Gm NS DAILY 11/06/12 06/17/13 Discontinued Acetaminophen PO TID PRN 11/06/12 Active Bupropion Hcl 300 Mg PO DAILY 06/17/13 Active Metformin HCl 1 Tab PO TWICE DAILY WITH MEALS Take one tablet, by mouth , twice daily with meals 11/08/14 Active Glipizide 11 Tab PO TWICE A DAY 11/08/14 11/15/14 Discontinued Amoxicillin 1 Cap PO TWICE A DAY 11/08/14 11/15/14 Discontinued Levofloxacin 500 Mg PO BEFORE BREAKFAST 10 Qty 11/08/14 11/15/14 Discontinued Insulin Glargine,Hum.rec.anlog 10 Unit SQ BEDTIME 30 Days 11/15/14 Active Ondansetron HCl 4 Mg PO Every 6 Hours For NAUSEA 20 Qty 11/15/14 Active Atorvastatin Calcium 1 Tab PO BEDTIME 11/20/14 Active Gabapentin 2 Cap PO THREE TIMES A DAY 11/20/14 11/27/14 Discontinued Glipizide Unknown Dose PO TWICE A DAY 11/20/14 11/27/14 Discontinued [ Elderberry] 3 Cap PO TWICE A DAY 11/20/14 Active Cholecalciferol (Vitamin D3) 1 PO DAILY 11/20/14 Active Gabapentin 3 Cap PO BEFORE BREAKFAST AND LUNCH 30 Days 11/27/14 Active Fluticasone Propionate 2 [place] EA NOSTRIL DAILY 30 Days 11/27/14 Active Gabapentin 1,200 Mg PO BEDTIME 30 Days 11/27/14 Active Acetaminophen with Codeine 1 Tab PO Every 6 Hours PRN PAIN 10 Qty 11/27 Active Social History Social History Problem Response Recorded Date/Time Hx Substance Use No 11/20/2014 2:30pm Hx Alcohol Use No 11/20/2014 2:30pm Has the pt used tobacco in the last 12 months No 11/20/2014 7:33pm Tobacco Usage none 11/10/2014 10:35am Query Response Start Date Stop Date Smoking Status Never smoker Hospital Discharge Instructions Instructions: Care Instructions: Reason for Hospitalization: Weakness, falls, failure at home I was in the hospital because (patient own words): "I'M TOO WEAK AND CAN'T GET SELF UP" Discharge Diet: Diabetic diet Discharge Activity: as tolerated Follow Up Appointments: 1 week after D/C from SNF with Dr. Marshall Patient Instructions: n/a Wound/Incision Care: as per wound team Durable Medical Equipment: n/a Notify Physician If: worsening weakness, inability to take PO, fever > 101 General Information: n/a Condition at time of discharge: Good Pass Plan of Care Discharge Date 11/27/14 5:12pm Disposition 04 TO [facility] HOME[facility]FACILITY Instructions/Education Provided DI for Muscle Weakness Prescriptions See Medications Section Functional Status Query Response Date Recorded Physical Hygiene Self November 27, 2014 3:53pm Disabilities None November 27, 2014 3:53pm Devices Used None November 27, 2014 3:53pm Dressing Self November 27, 2014 3:53pm Ambulation Self November 27, 2014 3:53pm Diet Self November 27, 2014 3:53pm Cognitive/Functional Comments PATIENT REPORTS SHE HAS BEEN UNABLE TO CARE FOR HERSELF SINCE GETTING SICK AND BEING HOSPITALIZED [facility] THIS MONTH. NORMALLY HAS BEEN TAKING HER CHILD TO SCHOOL. SINCE BEING DISCHARGED TUESDAY SHE HASN'T BEEN ABLE TO WALK OR CARE FOR HERSELF. HAS TRANSFERED FROM CHAIR TO [facility], BUT HAS FALLEN X 2 AND HAD TO CALL EMS FOR ASSIST. November 27, 2014 3:53pm Mental Status Alert Oriented November 27, 2014 3:53pm Disabilities None November 27, 2014 3:53pm Devices Used None November 27, 2014 3:53pm Physical Hygiene Self November 27, 2014 3:53pm Dressing Self November 27, 2014 3:53pm Ambulation Self November 27, 2014 3:53pm Diet Self November 27, 2014 3:53pm Allergies, Adverse Reactions, Alerts Allergen Type Severity Reaction Status Last Updated Bananas Allergy Unknown Active 11/20/14 hydrocodone bit Adverse Reaction Unknown ITCHING Active 11/08/14 Diazepam Allergy Unknown HAD TO HAVE ROMAZICON WITH IT Active 11/08/14 Talc Allergy Mild ITCHING Active 11/24/14 Lovastatin Allergy Mild Active 11/24/14 Naproxen Allergy Mild ITCHING Active 11/24/14 Latex Adverse Reaction Unknown ANALYPHAXYS Active 11/08/14 [place] Adverse Reaction Intermediate Vomiting Active 11/08/14 Egg Yolk Adverse Reaction Intermediate Active 12/18/10 Immunizations Name Given Type Hx Influenza Vaccination Y FALL 2013 Historical Hx Pneumococcal Vaccination Y OCT 2014 OR SEP 2014 Historical Hx Influenza Vaccination Y FALL 2013 Historical Vital Signs Acute Vital Signs Vital Response Date/Time Temperature (Fahrenheit) 97.4 deg F (96.8 - 99.1) Temperature (Calculated Celsius) 36.73808 degrees C (36.0 - 37.3) Temperature Source Temporal Pulse Rate (adult) 95 bpm (60 - 100) Respiratory Rate 16 breaths/min (10 - 20) O2 Sat by Pulse Oximetry 98 % (90 - 100) Oxygen Delivery Method Room Air Blood Pressure 127/79 mm Hg Blood Pressure Source Automatic Cuff Height (Feet) 5 feet Height (Inches) 10.00 inches Weight (Kilograms) 138.900 kg Height 5 ft 10 in Weight 306 lb Body Mass Index 43.0 kg/m^2 Results Test Source Date Result Interp. Ref. Range Comments Absolute Reticulocyte Count November 11, 2014 8:32am 0.0162 T/MM3 L 0.0300-0.0900 COMMENT Add on - blood already in lab Activated Partial Thromboplast Time November 11, 2014 8:32am 30.8 SEC N 24-36 COMMENT Add on - blood already in lab Alanine Aminotransferase (ALT/SGPT) November 27, 2014 4:48am 17 U/L N 9- 52 Albumin November 27, 2014 4:48am 3.1 G/DL L 3.5-5.0 Albumin/Globulin Ratio November 27, 2014 4:48am 0.7 RATIO L 1.1-2.2 Alkaline Phosphatase November 27, 2014 4:48am 108 U/L N 38-126 Ammonia November 12, 2014 7:01pm 18 UMOL/L N 9-33 Anion Gap November 27, 2014 4:48am 13 MEQ/L N 5-15 Anisocytosis November 15, 2014 4:42am 1+ - Anti-Centromere Antibody November 12, 2014 7:01pm 5 U/mL - Anti-Double Strand DNA Antibody November 12, 2014 7:01pm 4 U/mL - Anti-Nuclear Antibody (LAB) November 12, 2014 7:01pm Positive H - RENO Panel, Quantitative performed at [facility], [address],[place] [address] Sheep Farm Manager Hansel Irwin DO Anti-Nuclear Antibody Interpret November 12, 2014 7:01pm see below - < 100 U/mL: [id number] U/mL: Indeterminate >120 U/mL: Positive Anti-Platelet Antibody November 12, 2014 7:01pm Positive - Reference Range:Not Applicable Aspartate Amino Transf (AST/SGOT) November 27, 2014 4:48am 26 U/L N 14- 36 B-Type Natriuretic Peptide December 17, 2010 3:48pm 17 PG/ML N 15-100 BUN/Creatinine Ratio November 27, 2014 4:48am 11 RATIO N 6-26 Band Neutrophils # November 27, 2014 4:48am 0.1 T/MM3 - Band Neutrophils % November 27, 2014 4:48am 1.0 % N 0-6 Basophils # (Auto) November 06, 2012 5:35pm 0.1 T/MM3 N 0-0.2 Basophils # (Manual) November 26, 2014 5:31am 0.1 T/MM3 N 0-0.2 Basophils % (Manual) November 26, 2014 5:31am 1.0 % N 0-2 Basophils (%) (Auto) November 06, 2012 5:35pm 0.9 % N 0-2 Blood Smear Pathologist Review November 11, 2014 8:33am Sent for review - COMMENT Add on - blood already in lab Blood Urea Nitrogen November 27, 2014 4:48am 9.0 MG/DL N 7-17 C-Peptide August 30, 2012 9:42am Ref lab rpt scanned - [facility]--- 06/10 0845 ---CPEP previously reported as: SENT OUT C-Reactive Protein November 21, 2014 4:20am 40.3 MG/L H 0-9 Calcium Level November 27, 2014 4:48am 9.1 MG/DL N 8.4-10.2 Calculated Osmolality November 27, 2014 4:48am 276 MOSM/KG N 261-280 Carbon Dioxide Level November 27, 2014 4:48am 21 MEQ/L L 22-30 Chemistry Specimen Hemolysis November 27, 2014 4:48am < 15 0-25 0-25 : No Hemolysis.26-70: Slight Hemolysis - can falsely [...] Phenytoin. Recommend specimen recollection. Chloride Level November 27, 2014 4:48am 109 MEQ/L H 98-107 Cholesterol Level July 10, 2012 11:30am 155 MG/DL N 132-199 Cholesterol/HDL Ratio July 10, 2012 11:30am 4.0 RATIO N 0-4.0 Conjugated Bilirubin November 12, 2014 7:01pm 0.00 MG/DL N 0.00-0.30 Creatine Kinase MB February 03, 2012 4:36pm 1.6 NG/ML N 0-3.4 Creatinine November 27, 2014 4:48am 0.8 MG/DL N 0.7-1.2 D-Dimer November 11, 2014 4:15pm 1193 NG/ML H 0-230 <230 NG/ML D-DU= PRESUMPTIVE NEGATIVE FOR PE OR DVT>230 NG/ML D-DU=ADDITIONAL EVAL FOR PE OR DVT RECOMMENDED Differential Total Cells Counted December 19, 2010 4:55am 100 % - Eosinophils # (Auto) November 06, 2012 5:35pm 0.2 T/MM3 N 0-0.5 Eosinophils # (Manual) November 27, 2014 4:48am 0.2 T/MM3 N 0-0.5 Eosinophils % (Manual) November 27, 2014 4:48am 2.0 % N 0-4 Eosinophils (%) (Auto) November 06, 2012 5:35pm 3.0 % N 0-4 Erythrocyte Sedimentation Rate November 21, 2014 4:20am > 100 MM/HR H 0- 20 Ferritin November 14, 2014 4:30am 845 NG/ML H 6-137 COMMENT Add on - blood already in lab Fibrinogen November 11, 2014 8:32am 347 MG/DL N 135-357 COMMENT Add on - blood already in lab Free Thyroxine August 04, 2009 9:46am 0.80 NG/DL N 0.78-2.19 Globulin November 27, 2014 4:48am 4.2 G/DL H 2.4-3.6 Glomerular Filtration Rate Calc November 27, 2014 4:48am 77 - Glucometer November 27, 2014 12:29pm 138 mg/dL H 65-110 Glucose Level November 27, 2014 4:48am 133 MG/DL H 65-110 Glutamic Acid Decarboxylate Ab August 30, 2012 9:42am Ref lab rpt scanned - --- 09/06/12 0845 ---GLUTA previously reported as: SENT OUT Group A Streptococcus Screen November 08, 2014 11:20am Negative - Strep culture confirmation to follow HDL Cholesterol Direct July 10, 2012 11:30am 39 MG/DL L 40-60 Haptoglobin November 11, 2014 8:32am 286 mg/dL H - Haptoglobin performed at [facility], [address], [place] [address]ukug[employer] Director Hansel Irwin, DO Hematocrit November 27, 2014 4:48am 30.3 % L 36-46 Hemoglobin November 27, 2014 4:48am 9.5 GM/DL L 12-16 Hemoglobin A1c November 09, 2014 5:36pm 8.9 % H 6-7 <6.0 NON-DIABETIC RANGE6.0-7.0 ADA THERAPEUTIC RANGE >7.0 ACTION SUGGESTED Hepatitis C Antibody November 11, 2014 8:32am Negative - COMMENT Add on - blood already in lab Histone Antibodies November 12, 2014 7:01pm 8 U/mL - RENO, Quant Add On performed at [facility], [address] [place] [address] Sheep Farm Manager Hansel Irwin, DO Icterus Index November 27, 2014 4:48am < 2 0-7 Immature Granulocyte # (Auto) November 06, 2012 5:35pm 0.02 T/MM3 N 0.00- 0.03 Immature Granulocyte % (Auto) November 06, 2012 5:35pm 0.2 % N 0.0-0.5 Immature Reticulocyte Fraction November 11, 2014 8:32am 25.2 % H 3.3- 14.5 COMMENT Add on - blood already in lab Influenza Type A Antigen November 20, 2014 5:10pm Negative - Negative for Flu A protein antigen. Assay sensitivity is90%. Influenza Type B Antigen November 20, 2014 5:10pm Negative - Negative for Flu B protein antigen. Assay sensitivity is90%. Iron Level November 14, 2014 4:30am 34 UG/DL L 37-170 COMMENT Add on - blood already in lab JULIAN-1 Antibody November 12, 2014 7:01pm 14 U/mL - LDL Cholesterol, Calculated July 10, 2012 11:30am 116 N 66-159 Lab Scanned Report November 09, 2014 7:39pm REFERENCE [facility] [id number] - Lactate Dehydrogenase November 11, 2014 8:32am 2523 U/L H 313-618 COMMENT Add on - blood already in lab Lymphocytes # (Auto) November 06, 2012 5:35pm 3.3 T/MM3 N 1-4.8 Lymphocytes # (Manual) November 27, 2014 4:48am 6.0 T/MM3 H 1-4.8 Lymphocytes % (Manual) November 27, 2014 4:48am 61.0 % H 23-45 Lymphocytes (%) (Auto) November 06, 2012 5:35pm 41.0 % N 23-45 Magnesium Level November 14, 2014 4:30am 1.6 MG/DL N 1.6-2.3 COMMENT Add on - blood already in lab Mean Corpuscular Hemoglobin November 27, 2014 4:48am 31.5 UUG N 26-34 Mean Corpuscular Hemoglobin Concent November 27, 2014 4:48am 31.4 GM/DL N 31-37 Mean Corpuscular Volume November 27, 2014 4:48am 100.3 UM3 H 80-100 Mean Platelet Volume November 27, 2014 4:48am 10.8 UM3 N 9.4-12.4 Metamyelocytes # December 19, 2010 4:55am 0.1 T/MM3 - Metamyelocytes % December 19, 2010 4:55am 1.0 % H 0-0 Monocytes # (Auto) November 06, 2012 5:35pm 0.5 T/MM3 N 0-0.8 Monocytes # (Manual) November 27, 2014 4:48am 0.1 T/MM3 N 0-0.8 Monocytes % (Manual) November 27, 2014 4:48am 1.0 % N 0-9.0 Monocytes (%) (Auto) November 06, 2012 5:35pm 6.3 % N 0-9.0 Monoscreen November 09, 2014 5:10pm Negative - Neutrophils # (Auto) November 06, 2012 5:35pm 3.9 T/MM3 N 1.8-7.7 Neutrophils # (Manual) November 27, 2014 4:48am 3.5 T/MM3 N 1.8-7.7 Neutrophils % (Manual) November 27, 2014 4:48am 35.0 % N 33-66 Neutrophils (%) (Auto) November 06, 2012 5:35pm 48.6 % N 33-66 Nucleated Red Blood Cells November 23, 2014 4:45am 1 - Parathyroid Hormone (Intact) February 20, 2010 10:19am 77.1 PG/ML N 8.2- 83.5 Percent Reticulocyte Count November 11, 2014 8:32am 0.5 % L 0.6-1.7 COMMENT Add on - blood already in lab Platelet Antibody Comment November 12, 2014 7:01pm See below - Antibody reacts with glycoprotein Ia/IIa, probable antibodyspecificity HPA-5b [ Bra]. ADDITIONAL INFORMATION Method: Jenae Based Assay Performing Laboratory CLIA# [id number] Test Performed by: [place] [address] Hrbp: Blayne Nascimento M.D. Platelet Antibody performed at [facility], [address] [place] [address] Sheep Farm Manager Oleksandr Jeffers MD Platelet Count November 27, 2014 4:48am 230 T/MM3 N 130-400 Polychromasia November 15, 2014 4:42am 1+ - Potassium Level November 27, 2014 4:48am 3.6 MEQ/L N 3.6-5 Prealbumin November 13, 2014 4:27am 11.6 MG/DL L 17.6-36.0 COMMENT Add on - blood already in lab Procalcitonin November 20, 2014 1:00pm 0.17 NG/ML - PCT </=0.5 ng/mL - sepsis not likely;PCT >0.5 and </=2 ng/mL - sepsis possible; PCT >2 ng/mL - sepsis likely; PCT >/=10 ng/mL - systemic inflammatory response - sepsis or septic shock highly indicated. Prothromb Time International Ratio November 11, 2014 8:32am 1.68 H 0.81- 1.09 THERAPUTIC RANGE=2.00-3.00 FOR ANTI-THROMBOSIS THERAPUTIC RANGE=2.50- 3.50 FOR IMPLANTED VALVE RDW Standard Deviation November 27, 2014 4:48am 56.6 FL H 36.9-50.2 LEVEL DESIGNER Antibody November 12, 2014 7:01pm 148 U/mL H - Rapid Plasma Reagin August 04, 2009 9:46am Nonreactive - Reactive Lymphocytes # November 25, 2014 5:03am 0.1 T/MM3 H 0-0 Reactive Lymphocytes % November 25, 2014 5:03am 1.0 % H 0-0 Red Blood Count November 27, 2014 4:48am 3.02 M/MM3 L 4.00-5.20 Reference Lab Test Name [...] 2014 4:27am 1+ - Sodium Level November 27, 2014 4:48am 143 MEQ/L N 134-144 Theophylline Level December 18, 2010 4:45am 8.1 UG/ML L 10-20 COMMENT may use blood in lab - if not able, may run in amCOMMENT may use blood in lab, if not able - run tommorrow am Thyroid Stimulating Hormone (TSH) November 12, 2014 7:01pm 1.63 MIU/L N 0.47-4.68 Total Bilirubin November 27, 2014 4:48am 0.50 MG/DL N 0.20-1.30 Total Creatine Kinase November 21, 2014 4:20am 45 U/L N 30-135 Total Protein November 27, 2014 4:48am 7.3 G/DL N 6.3-8.2 Triglycerides Level July 10, 2012 11:30am 400 MG/DL H 35-135 Troponin I November 20, 2014 1:00pm < 0.012 ng/ml 0-0.12 Turbidity November 27, 2014 4:48am < 20 0-20 Unconjugated Bilirubin November 12, 2014 7:01pm 0.30 MG/DL N 0.00-1.10 Urine Bacteria November 20, 2014 3:15pm None seen - Has specimen been collected/obtained? Y Urine Bilirubin November 20, 2014 3:15pm Negative - Has specimen been collected/obtained? Y Urine Blood November 20, 2014 3:15pm Negative - Has specimen been collected/obtained? Y Urine Collection Type November 20, 2014 3:15pm Cleancatch-midstream - Has specimen been collected/obtained? Y Urine Color November 20, 2014 3:15pm Yellow - Has specimen been collected/obtained? Y Urine Drug Screen (T) April 10, 2012 9:15am Sent out - Urine Glucose (UA) November 20, 2014 3:15pm Negative - Has specimen been collected/obtained? Y Urine Ketones November 20, 2014 3:15pm Negative - Has specimen been collected/obtained? Y Urine Leukocyte Esterase November 20, 2014 3:15pm Negative - Has specimen been collected/obtained? Y Urine Microalbumin January 03, 2012 8:40am < 5.0 MG/L 0-17 Urine Microscopic Not Indicated December 17, 2010 4:55pm Not indicated - Has specimen been collected/obtained? Y Urine Nitrite November 20, 2014 3:15pm Negative - Has specimen been collected/obtained? Y Urine Protein November 20, 2014 3:15pm 1+ H - Has specimen been collected/obtained? Y Urine RBC November 20, 2014 3:15pm None seen /HPF - Has specimen been collected/obtained? Y Urine Specific [place] November 20, 2014 3:15pm 1.025 - Has specimen been collected/obtained? Y Urine Squamous Epithelial Cells November 20, 2014 3:15pm 0-5 - Has specimen been collected/obtained? Y Urine Turbidity November 20, 2014 3:15pm Clear - Has specimen been collected/obtained? Y Urine Urobilinogen November 20, 2014 3:15pm 0.2 EU/DL - Has specimen been collected/obtained? Y Urine WBC November 20, 2014 3:15pm None seen /HPF - Has specimen been collected/obtained? Y Urine pH November 20, 2014 3:15pm 6.0 - Has specimen been collected/ obtained? Y VLDL Cholesterol July 10, 2012 11:30am 80.0 MG/DL H 0- Venous Blood Lactate November 20, 2014 4:54pm 1.5 MMOL/L N 0.6-2.2 Vitamin B12 Level August 04, 2009 9:46am 967 PG/ML H 239-931 Vitamin D 25-Hydroxy February 20, 2010 10:19am Send out - White Blood Count November 27, 2014 4:48am 9.9 T/MM3 N 4.5-11.0 Blood Culture Peripheral Blood November 20, 2014 4:54pm NO GROWTH AFTER 5 DAYS Group A Streptococcus Culture Throat November 08, 2014 12:15pm Urine Culture Urine, Clean Catch Voided February 20, 2010 10:06am Gram Positive Don JESSICA Preparation Mouth November 08, 2014 12:31pm Name: ELLYN RODRÍGUEZ Unit #: [id number] : [id number] Sex: F Loc / Svc: SRG DOS: 11/20/14 Signed Report #: [id number] DIAGNOSTIC IMAGING REPORT TYPE OF EXAM: KNEE BILAT 3 VIEWS Dictated By: SHAAN PRUETT MD Indication: ITS.REASON: fall, pain Comparison: None Findings: There is no acute fracture, dislocation or malalignment identified. Impression: No acute osseous abnormality. . Procedures Procedure Status Date Provider(s) ROUTINE [...] ARMSTRONG MD EMERGENCY DEPT VISIT completed 11/08/14 [id number] ITEM OR SERVICE completed 11/08/14 [id number]"INFUSION, NORMAL SALINE SOLUTION , 1000 CC" completed 11/08/14 [id number]"INFUSION, NORMAL SALINE SOLUTION , 1000 CC" completed 11/08/14 Encounters Encounter Location Date/Time Discharged Inpatient [facility] 11/23/14 5:18pm Discharged Inpatient [facility] 11/11/14 1:08pm Departed Emergency Room [facility] 11/08/14 10:37am Recent Diagnosis Wound, open, hip or thigh Generalized weakness Generalized weakness Falls Type II diabetes mellitus Morbid obesity Depression Fibromyalgia Anemia Acute kidney injury Otalgia of right ear
--- OUTSIDE RECORDS SUMMARY | 2017-03-05 17:43 | XMS REPORT ---
Author Author Abelino Boothe Organization [facility] Address [address] [place] [address] Care Team Providers Care Field Technician Name Role Phone Abelino Boothe Unavailable [phone] PROBLEMS Type Condition ICD9-CM Code [id number] Code Onset Dates Condition Status SNOMED Code Problem Hypotension I95.9 Active 71993531 Problem Chest discomfort R07.89 Active 485931932 Problem Dyspnea on effort R06.09 Active 20871182 Problem Dyslipidemia E78.5 Active 872309208 ALLERGIES Unknown Allergies SOCIAL HISTORY No smoking Hx information available PLAN OF CARE VITAL SIGNS MEDICATIONS Medication Instructions Dosage Frequency Start Date End Date Duration Status Midodrine HCl 10 MG Orally Three times a day 1 tablet 8h 90 days Active RESULTS No Results PROCEDURES No Known procedures IMMUNIZATIONS No Known Immunizations
--- OUTSIDE RECORDS SUMMARY | 2017-03-05 17:43 | XMS REPORT | Continuity of Care Document ---
Author Author [facility] Organization [facility] Address Unknown Phone Unavailable Support Name Relationship Address Phone NIKKI MCMANUS APRN Caregiver [address] [place] [address] Unavailable SANGEETHA SUTTON MD Caregiver [address] [place] [address] [place] [address] Unavailable LAVON BARRY Next Of Kin [address] [place], [place] [id number] Insurance Providers Guarantor Ellyn Farr Address [address] [facility] [place] [address] Email [email or web address] Payer [employer] Plan 65 Policy Number [id number] Subscriber's Name YordanEllyn Relationship 18 Self Group Number [id number] Payer Medicare Policy Number [id number] Subscriber's Name Ellyn Farr Harshil Relationship 18 Self Chief Complaint and Reason for Visit Chief Complaint Lower Extremity Pain Reason for Visit [id number] Problems Active Problems Medical Problem Onset Date Status Acute kidney injury Unknown Acute Anemia Unknown Acute Anxiety Unknown Acute Asthma Unknown Acute Bronchitis Unknown Acute Bronchitis Unknown Acute Dehydration Unknown Acute Depression Unknown Acute Diabetes mellitus type 2, uncontrolled Unknown Chronic Diabetic peripheral neuropathy Unknown Acute Exacerbation of intermittent asthma Unknown Acute Exacerbation of intermittent asthma Unknown Acute Exacerbation of intermittent asthma Unknown Acute Exacerbation of intermittent asthma Unknown Acute Falls Unknown Acute Fibromyalgia Unknown Chronic Fibromyalgia Unknown Acute GERD (gastroesophageal reflux disease) Unknown Acute Generalized weakness Unknown Acute Generalized weakness Unknown Acute HLD (hyperlipidemia) Unknown Chronic Hyperosmolality with hypernatremia Unknown Acute Hypokalemia Unknown Acute Hypotension Unknown Acute IBS (irritable bowel syndrome) Unknown Acute Ketonuria Unknown Acute Metabolic acidosis Unknown Acute Metabolic encephalopathy Unknown Acute Migraines Unknown Acute Morbid obesity Unknown Chronic Morbid obesity with BMI of 40.0-44.9, adult Unknown Chronic Otalgia of right ear Unknown Acute Pain, foot, left, chronic Unknown Acute Pharyngitis Unknown Acute Pharyngitis, acute Unknown Acute Protein calorie malnutrition Unknown Acute Rhinovirus infection Unknown Acute SIRS (systemic inflammatory response syndrome) Unknown Acute Scleroderma Unknown Acute Skin cancer Unknown Acute Thrombocytopenia Unknown Acute Thrombocytopenia Unknown Acute Type II diabetes mellitus Unknown Chronic Wound, open, hip or thigh Unknown Chronic Past Problems Medical Problem Onset Date Chest pain Unknown Chronic foot pain Unknown Chronic pain in left foot Unknown Lightheadedness Unknown Nonspecific low blood pressure reading Unknown Orthostatic hypotension Unknown Medications Current Home Medications Medication Dose Units Route Directions Days Qty Instructions Start Date Acetaminophen (Tylenol Arthritis) 650 Mg Tablet 1,300 Mg Oral Every 8 Hours as needed for Pain 11/06/12 Albuterol Sulfate 2.5 Mg/3 Ml Vial.neb 2.5 Mg Aerosol Tx. Three Times A Day as needed for Wheezing 11/12/16 Asenapine Maleate (Saphris) 10 Mg Tab.subl 10 Mg Sublingual Bedtime 11/12/16 Aspirin (Aspir 81) 81 Mg Tablet.dr 81 Mg Oral Daily 10/21/16 Aspirin 325 Mg Tablet 650 Mg Oral As Needed 11/12/16 Atorvastatin Calcium (Lipitor) 20 Mg Tablet 20 Mg Oral Bedtime Baclofen 10 Mg Tablet 5 Mg Oral Three Times A Day as needed for Prn Orders 07/11/16 Bupropion Hcl (Bupropion Xl) 150 Mg Tab.er.24h 150 Mg Oral Daily TAKE WITH 300 MG TO EQUAL 450 MG DAILY 11/12/16 Bupropion Hcl (Wellbutrin Xl) 300 Mg Tab.sr.24h 300 Mg Oral Daily TAKE WITH 150 MG TO EQUAL 450 MG DAILY 06/17/13 Buspirone Hcl (Buspar) 15 Mg Tablet 15 Mg Oral Twice A Day Cetirizine Hcl (Zyrtec) 10 Mg Tablet 10 Mg Oral Daily 12/17/10 Cholecalciferol (Vitamin D3) (Vitamin D) 400 Unit Capsule 800 Unit Oral Daily 02/24/16 Elderberry 230 Mg Oral Twice A Day 03/10/16 Fluticasone Propionate (Fluticasone Prop 50 Mcg/Actuation Nasal [place]) 120 [place]/16 G [place] 2 [place] Each Nostril Daily 09/27/15 Fluticasone/Salmeterol (Advair 100-50 Diskus) 1 Disk W/Dev Inhaler 1 Puff Inhalation Twice A Day as needed for Shortness Of Air 02/24/16 Gabapentin 600 Mg Tablet 1,200 Mg Oral Three Times A Day 09/27/15 Glipizide 5 Mg Tablet 5 Mg Oral Daily 07/11/16 Ibuprofen 800 Mg Tablet 800 Mg Oral Every 8 Hours as needed for Pain 11/12/16 Magnesium Oxide 400 Mg Tablet 400 Mg Oral Twice A Day 10/21/16 Metformin Hcl 1,000 Mg Tablet 1,000 Mg Oral Twice Daily With Meals 11/08/14 Midodrine Hcl 5 Mg Tablet 5 Mg Oral Bedtime 11/26/16 Midodrine Hcl 10 Mg Tablet 10 Mg Oral Every Morning 11/12/16 Niacin (Niacin Er) 1,000 Mg Tab.er.24h 1,000 Mg Oral Bedtime Mentor-3/Dha/Epa/Fish Oil (Fish Oil 1,000 Mg Softgel) 1 Each Capsule 2 Tab Oral Twice A Day 02/24/16 Ondansetron Hcl 4 Mg Tablet 4 Mg Oral Every 6 Hours as needed for Nausea 07/11/16 Pantoprazole Sodium 20 Mg Tablet.dr 20 Mg Oral Daily 02/24/16 Quetiapine Fumarate 300 Mg Tablet 300 Mg Oral Bedtime 11/12/16 Sumatriptan Succinate 50 Mg Tablet 50 Mg Oral Four Times Daily as needed for Headache 02/24/16 Topiramate (Topamax) 200 Mg Tablet 400 Mg Oral Twice A Day Tramadol Hcl 50 Mg Tablet 50 Mg Oral Q6h/0300,0900,1500,2100 as needed for Pain 11/26/16 Past Home Medications Medication Directions Ordered Status Acetaminophen With Codeine (Acetaminophen-Cod #4 Tablet) 1 Each Tablet, 1 Tab Oral Every 6 Hours as needed for Pain 02/24/16 Discontinued Albuterol Sulfate (Albuterol Sulfate Hfa) 8.5 Gm Hfa.aer.ad, Inhalation 12/17/10 Discontinued Amoxicillin 500 Mg Capsule, 1 Cap Oral Twice A Day 11/08/14 Discontinued Atorvastatin Calcium (Lipitor) 20 Mg Tablet, 20 Mg Oral Daily 12/17/10 Discontinued Budesonide (Pulmicort) 1 Mg/2 Ml Ampul.neb, 12/17/10 Discontinued Bupropion Hcl (Wellbutrin Sr) 150 Mg Tablet.sa, 150 Mg Oral Twice A Day 12/17 Discontinued Buspirone Hcl (Buspar) 10 Mg Tablet, 15 Mg Oral Twice A Day 12/17/10 Discontinued Clobetasol Propionate 25 Ml Solution, 25 Ml Topical Daily 11/06/12 Discontinued Duloxetine Hcl (Cymbalta) 60 Mg Capsule., 60 Mg Oral Daily 12/17/10 Discontinued Fluconazole (Diflucan) 150 Mg Tablet, 150 Mg Oral Daily Prn 11/06/12 Discontinued Fluticasone Propionate (Flonase) 16 Gm [place].susp, 16 Gm Nasal Daily Discontinued Gabapentin 300 Mg Capsule, 2 Cap Oral Three Times A Day 11/20/14 Discontinued Glipizide Unknown Strength Tablet, Unknown Dose Oral Twice A Day 11/20/14 Discontinued Glipizide 10 Mg Tablet, 11 Tab Oral Twice A Day 11/08/14 Discontinued Glucosa [place] 2KCL/Chondroitin [place] (Glucosamine & Chondroitin Cap) 1 Cap Capsule, 1 Cap Oral Twice A Day 11/06/12 Discontinued Insulin Glargine (Lantus) 100 U/Ml Vial, 180 Mg Sub-Q Bedtime 12/17/10 Discontinued Insulin Lispro (Humalog) 100 U/Ml Vial, Sub-Q Three Times A Day 12/17/10 Discontinued Ipratropium/Albuterol Sulfate (Ipratr-Albuterol 0.5-3 Mg/3 Ml) 3 Ml Ampul.neb, Mg Inhalation As Needed 12/17/10 Discontinued Lansoprazole (Prevacid) 30 Mg Capsule.dr, 30 Mg Oral Twice A Day 12/17/10 Discontinued Levofloxacin 500 Mg Tablet, 500 Mg Oral Before Breakfast 11/08/14 Discontinued Lovastatin 40 Mg Tablet, 40 Mg Oral Bedtime 11/06/12 Discontinued Meclizine Hcl 25 Mg Tablet, 25 Mg Oral Q6h/0300,0900,1500,2100 as needed for Dizziness 03/10/16 Discontinued Meloxicam 15 Mg Tablet, 15 Mg Oral Daily 02/24/16 Discontinued Metformin Hcl 1,000 Mg Tablet, 1000 Mg Oral Twice A Day 12/17/10 Discontinued Metoclopramide Hcl (Reglan) 5 Mg Tablet, 5 Mg Oral Four Times Daily 12/17/10 Discontinued Metoprolol Tartrate (Lopressor) 25 Mg Tablet, 25 Mg [place]hoff Twice A Day 11/06 Discontinued Nystatin 15 Gm Cream..g., 15 Gm Topical As Needed 11/06/12 Discontinued Omeprazole (Prilosec) 20 Mg Capsule.dr, 20 Mg Oral Daily 11/06/12 Discontinued Pregabalin (Lyrica) 150 Mg Capsule, 150 Mg Oral Twice A Day 12/17/10 Discontinued Pregabalin (Lyrica) 100 Mg Capsule, 100 Mg Oral Daily 12/17/10 Discontinued Quetiapine Fumarate (Seroquel) 100 Mg Tablet, 100 Mg Oral Twice A Day Discontinued Quetiapine Fumarate (Seroquel) 300 Mg Tablet, 300 Mg Oral Bedtime 12/17/10 Discontinued Salmeterol Xinafoate/Fluticasone (Advair 100-50 Diskus) 1 Each Disk.w.dev, Inhalation Bid Prn 11/06/12 Discontinued Sumatriptan Succinate (Imitrex) 50 Mg Tablet, 50 Mg Oral 11/06/12 Discontinued Terbinafine Hcl 250 Mg Tablet, 250 Mg Oral Daily 02/24/16 Discontinued Theophylline Anhydrous (Theophylline) 400 Mg Tablet.sa, 450 Mg Oral Twice A Day 12/17/10 Discontinued Tizanidine Hcl (Zanaflex) 4 Mg Tablet, 4 Mg Oral Three Times A Day 12/17/10 Discontinued Vitamin B Complex 1 Each Tablet, 1 Tab Oral Daily 09/27/15 Discontinued Social History Social History Problem Response Recorded Date/Time Onset Date Status Chewing Tobacco Status No 11/26/2016 7:14pm Not Applicable Not Applicable Hx Substance Use No 11/26/2016 7:14pm Not Applicable Not Applicable Hx Alcohol Use No 11/26/2016 7:14pm Not Applicable Not Applicable Has the pt used tobacco in the last 12 months No 09/27/2015 7:45pm Not Applicable Not Applicable Tobacco Usage none 09/28/2015 10:12am Not Applicable Not Applicable Query Response Start Date Stop Date Smoking Status Never smoker Hospital Discharge Instructions No hospital discharge instructions. Plan of Care Discharge Date 11/26/16 7:51pm Disposition 01 DISCHARGED HOME, SELF-CARE Condition at Discharge Stable Instructions/Education Provided Chronic Pain (ED) Prescriptions See Medication Section Referrals NIKKI MCMANUS APRN Address: [address] [place] [id number] Note: Follow-up Tuesday for evaluation Additional Instructions/Education Follow-up with your doctor on Tuesday for further evaluation Care Plan and Goals Physician Care Plan Problem: Chronic left foot pain Goal: Follow up with primary care provider Instructions: Take medications and follow care plan as discussed/written Functional Status No functional status results. Allergies, Adverse Reactions, Alerts Allergen Type Severity Reaction Status Last Updated Bananas Allergy Unknown Active 11/26/16 hydrocodone bit Adverse Reaction Unknown ITCHING Active 11/26/16 Diazepam Allergy Unknown HAD TO HAVE ROMAZICON WITH IT Active 11/26/16 Oxycodone Allergy Unknown Active 11/26/16 [place] Allergy Mild ITCHING Active 11/26/16 Lovastatin Allergy Mild Active 11/26/16 Naproxen Allergy Mild ITCHING Active 11/26/16 Latex Adverse Reaction Unknown ANALYPHAXYS Active 11/26/16 [place] Adverse Reaction Intermediate Vomiting Active 11/26/16 Egg Yolk Adverse Reaction Intermediate Active 12/18/10 Immunizations Query Response on File Recorded Date/Time Hx Influenza Vaccination Y fall 201409/27/15 7:45pm Hx Pneumococcal Vaccination Y OCT 2014 OR SEP 2014 09/27/15 7:45pm Hx Influenza Vaccination Y fall 201409/27/15 7:45pm DTaP Vaccine History UNKNOWN 11/12/16 7:51pm Influenza Vaccine Hx fall 201511/26/16 7:19pm Pneumococcal PCV13 Vaccine Hx 201411/26/16 7:19pm Vital Signs Acute Vital Signs Vital Response Date/Time Temperature (Fahrenheit) 99.0 deg F (96.8 - 99.1) 11/26/2016 6:51pm Temperature (Calculated Celsius) 37.65186 degrees C (36.0 - 37.3) 11/26/2016 6:51pm Pulse Rate (adult) 96 bpm (60 - 100) 11/26/2016 7:51pm Respiratory Rate 20 breaths/min (10 - 20) 11/26/2016 7:51pm O2 Sat by Pulse Oximetry 95 % (90 - 100) 11/26/2016 7:51pm Blood Pressure 139/73 mm Hg 11/26/2016 7:51pm Height (Feet) 5 feet 11/26/2016 6:51pm Height (Inches) 10.00 inches 11/26/2016 6:51pm Weight (Kilograms) 141.600 kg 11/26/2016 6:51pm Body Mass Index (BMI) 44.0 11/26/2016 6:51pm Results Laboratory Results Test Name Result Units Flags Reference Collection Date/Time Result Date/ Time Comments White Blood Count 12.1 T/MM3 H 4.5-11.0 11/12/2016 8:26pm 11/12/2016 8: 33pm Red Blood Count 3.79 M/MM3 L 4.00-5.20 11/12/2016 8:11/12/2016 8: 33pm Hemoglobin 11.3 GM/DL L 12-16 11/12/2016 8:11/12/2016 8:33pm Hematocrit 35.7 % L 36-46 11/12/2016 8:11/12/2016 8:33pm Mean Corpuscular Volume 94.2 UM3 80-100 11/12/2016 8:11/12/2016 8: 33pm Mean Corpuscular Hemoglobin 29.8 UUG 26-34 11/12/2016 8:2016 8:33pm Mean Corpuscular Hemoglobin Concent 31.7 GM/DL 31-37 11/12/2016 8:11/12/2016 8:33pm RDW Standard Deviation 46.1 FL 36.9-50.2 11/12/2016 8:11/12/2016 8 :33pm Platelet Count 280 T/MM3 130-400 11/12/2016 8:11/12/2016 8:33pm Mean Platelet Volume 11.0 UM3 9.4-12.4 11/12/2016 8:11/12/2016 8: 33pm Neutrophils (%) (Auto) 39.5 % 33-66 11/12/2016 8:11/12/2016 8: 33pm Lymphocytes (%) (Auto) 46.4 % H 23-45 11/12/2016 8:11/12/2016 8: 33pm Monocytes (%) (Auto) 6.3 % 0-9.0 11/12/2016 8:11/12/2016 8:33pm Eosinophils (%) (Auto) 7.0 % H 0-4 11/12/2016 8:11/12/2016 8:33pm Basophils (%) (Auto) 0.6 % 0-2 11/12/2016 8:11/12/2016 8:33pm Immature Granulocyte % (Auto) 0.2 % 0.0-0.5 11/12/2016 8:2016 8:33pm Absolute Neutrophils (auto) 4.8 T/MM3 1.8-7.7 11/12/2016 8:2016 8:33pm Absolute Lymphocytes (auto) 5.6 T/MM3 H 1-4.8 11/12/2016 8:2016 8:33pm Absolute Monocytes (auto) 0.8 T/MM3 0-0.8 11/12/2016 8:11/12/2016 8:33pm Absolute Eosinophils (auto) 0.9 T/MM3 H 0-0.5 11/12/2016 8:2016 8:33pm Absolute Basophils (auto) 0.1 T/MM3 0-0.2 11/12/2016 8:pm 11/12/2016 8:33pm Absolute Immature Granulocyte (auto 0.03 T/MM3 0.00-0.03 11/12/2016 8: 11/12/2016 8:33pm Icterus Index < 2 0-7 11/12/2016 8:11/12/2016 8:41pm Chemistry Specimen Hemolysis < 15 0-25 11/12/2016 8:11/12/2016 8 :41pm 0-25: Specimen Exhibited No Hemolysis. Turbidity < 20 0-20 11/12/2016 8:pm 11/12/2016 8:41pm Sodium Level 145 MEQ/L H 134-144 11/12/2016 8:11/12/2016 8:41pm Potassium Level 4.2 MEQ/L 3.6-5 11/12/2016 8:11/12/2016 8:41pm Chloride Level 111 MEQ/L H 98-107 11/12/2016 8:11/12/2016 8:41pm Carbon Dioxide Level 19 MEQ/L L 22-30 11/12/2016 8:11/12/2016 8: 41pm Anion Gap 15 MEQ/L 5-15 11/12/2016 8:11/12/2016 8:41pm Blood Urea Nitrogen 19.0 MG/DL H 7-17 11/12/2016 8:11/12/2016 8: 41pm Creatinine 0.9 MG/DL 0.7-1.2 11/12/2016 8:11/12/2016 8:41pm BUN/Creatinine Ratio 21 RATIO 6-11/12/2016 8:11/12/2016 8:41pm Glomerular Filtration Rate Calc 67 11/12/2016 8:26pm 11/12/2016 8: 41pm Glucose Level 248 MG/DL H 65-110 11/12/2016 8:26pm 11/12/2016 8:41pm Calculated Osmolality 289 MOSM/KG H 261-280 11/12/2016 8:26pm 2016 8:41pm Calcium Level 9.3 MG/DL 8.4-10.2 11/12/2016 8:26pm 11/12/2016 8:41pm Troponin I < 0.012 ng/ml 0-0.12 11/12/2016 8:26pm 11/12/2016 8:52pm Troponin values with a difference of 55% increase from orginal troponin value represent a true biological DELTA value. (%increase Calc=Orginal Troponin value, divided by subsequent Troponin value, multiplied by 100) Procedures Procedure Status Date Provider(s) Evaluation of wheezing Completed 09/30/16 Pulm funct tst plethysmograp Completed 09/30/16 Co/membane diffuse capacity Completed 09/30/16 Ther/proph/diag inj sc/im Completed 10/21/16 Ther/proph/diag inj sc/im Completed 10/21/16 Emergency dept visit Completed 10/21/16 [id number] ITEM OR SERVICE Completed 10/21/16 Chest x-ray 1 view frontal Completed 11/12/16 Metabolic panel total ca Completed 11/12/16 Assay of troponin quant Completed 11/12/16 Complete cbc w/auto diff wbc Completed 11/12/16 Electrocardiogram tracing Completed 11/12/16 Ther/proph/diag inj iv push Completed 11/12/16 Emergency dept visit Completed 11/12/16 Encounters Encounter Location Arrival/Admit Date Discharge/Depart Date Attending Provider Departed Emergency Room [facility] 11/26/16 6:40pm 11/26/16 7: 51pm SANGEETHA SUTTON MD Registered [facility] 11/26/16 3:03pm NIKKI MCMANUS APRN Departed Emergency Room [facility] 11/12/16 6:01pm 11/12/16 9: 23pm ELVIE PORTER MD Departed Emergency Room [facility] 10/21/16 4:38am 10/21/16 6: 00am SANGEETHA SUTTON MD Registered [facility] 09/30/16 8:52am ELVIE ABDULLAHI DO Recent Diagnosis
--- NOTE | 2017-03-05 17:49 | NUR ---
DR DICK IN WITH PT
--- OUTSIDE RECORDS SUMMARY | 2017-03-05 17:54 | XMS REPORT | Continuity of Care Document ---
Author Author [facility] Organization [facility] Address Unknown Phone Unavailable Care Team Providers Care Machine Shorthand Reporter Name Role Phone CALISTA MARSHALL MD Primary Care Physician [phone] Insurance Providers Payer Name Policy Number Subscriber Name Relationship Medicarehumana Gold Hmo [id number] Ellyn Rodríguez 18 Self Advance Directives Directive [...] Latex Adverse Reaction Unknown ANALYPHAXYS Active 11/08/14 [place] Adverse Reaction Intermediate Vomiting Active 11/08/14 Egg Yolk Adverse Reaction Intermediate Active 12/18/10 Immunizations Name Given Type Hx Influenza Vaccination Y 2013 Historical Hx Influenza Vaccination Y 2013 Historical Vital Signs Acute Vital Signs Vital Response Date/Time Temperature (Fahrenheit) 100.4 deg F (96.8 - 99.1) Temperature (Calculated Celsius) 38.49963 degrees C (36.0 - 37.3) Pulse Rate [...] 2012 9:42am Ref lab rpt scanned - [facility]--- 06/10 0845 ---CPEP previously reported as: SENT [...] Has specimen been collected/obtained? Y Urine Specific [place] November 08, 2014 1:20pm 1.020 - Has [...] Report September 06, 2012 8:50am [facility] [id number] - HDL Cholesterol Direct July 10, 2012 [...] 2014 12:31pm Name: ELLYN RODRÍGUEZ Unit #: [id number] : [id number] Sex: F Loc / Svc: ED DOS: 11/08/14 Signed Report #: [id number] DIAGNOSTIC IMAGING REPORT TYPE OF EXAM: CHEST, [...] Encounters Encounter Location Date/Time Departed Emergency Room [facility] 11/08/14 10:37am Recent Diagnosis
--- OUTSIDE RECORDS SUMMARY | 2017-03-05 17:56 | XMS REPORT | Continuity of Care Document ---
Author Author [facility] Organization [facility] Address Unknown Phone Unavailable Care Team Providers Care Wireworker Supervisor Name Role Phone CALISTA MARSHALL MD Primary Care Physician [phone] Insurance Providers Payer Name Policy Number Subscriber Name Relationship Medicarehumana Gold Hmo [id number] Ellyn Farr 18 Self Advance Directives Directive [...] Latex Adverse Reaction Unknown ANALYPHAXYS Active 11/08/14 [place] Adverse Reaction Intermediate Vomiting Active 11/08/14 Egg Yolk Adverse Reaction Intermediate Active 12/18/10 Immunizations Name Given Type Hx Influenza Vaccination Y UNSURE-PATIENT IS CONFUSED Historical Hx Pneumococcal Vaccination Y UNSURE-PATIENT IS CONFUSED Historical Hx Influenza Vaccination Y UNSURE-PATIENT IS CONFUSED Historical Vital Signs Acute Vital Signs Vital Response Date/Time Temperature (Fahrenheit) 97.4 deg F (96.8 - 99.1) Temperature (Calculated Celsius) 36.82991 degrees C (36.0 - 37.3) Temperature Source [...] Method: Jenae Based Assay Performing Laboratory CLIA# [id number] Test Performed by: [place] [address] Vocational Rehabilitation Consultant: Blayne Nascimento M.D. Platelet Antibody performed at [facility], [address] [place] [address] Cable Installer Repairer Helper Oleksandr Jeffers MD Anti-Platelet Antibody November 12, [...] H - [place] Panel, Quantitative performed at [facility], [address] [place] [address] Cable Installer Repairer Helper Hansel Irwin DO Anti-Nuclear Antibody Interpret November 12, 2014 7:01pm see below - < 100 U/mL: [id number] U/mL: Indeterminate >120 U/mL: Positive Aspartate Amino [...] 286 mg/dL H - Haptoglobin performed at [facility], [address] [place], [place] [address]Usynowq Director Hansel Irwin, DO Hematocrit November 15, [...] - [place], Quant Add On performed at [facility], [address] [place], [place] Cable Installer Repairer Helper Hansel Irwin, DO Icterus Index November 15, [...] Report November 09, 2014 7:39pm REFERENCE LAB [id number] - Lactate Dehydrogenase November 11, 2014 8:32am [...] 15, 2014 4:42am 50.3 FL H 36.9-50.2 ENTERTAINMENT MUSICIAN Antibody November 12, 2014 7:01pm 148 U/mL [...] Has specimen been collected/obtained? Y Urine Specific [place] November 09, 2014 7:00pm 1.020 - Has [...] 2014 12:31pm Name: ELLYN FARR Unit #: [id number] : [id number] Sex: F Loc / Sv: MED DOS: 11/09/14 Signed Report #: [id number] DIAGNOSTIC IMAGING REPORT TYPE OF EXAM: CTA [...] ARMSTRONG MD EMERGENCY DEPT VISIT completed 11/08/14 [id number] ITEM OR SERVICE completed 11/08/14 [id number]"INFUSION, NORMAL SALINE SOLUTION , 1000 CC" completed 11/08/14 [id number]"INFUSION, NORMAL SALINE SOLUTION , 1000 CC" completed 11/08/14 Encounters Encounter Location Date/Time Discharged Inpatient [facility] 11/11/14 1:08pm Departed Emergency Room [facility] 11/08/14 10:37am Recent Diagnosis Bronchitis Pharyngitis Dehydration Diabetes mellitus type 2, uncontrolled Fibromyalgia Hyperosmolality with hypernatremia Morbid obesity with BMI of 40.0-44.9, adult SIRS (systemic inflammatory response syndrome) Wound, open, hip or thigh Hypokalemia Metabolic encephalopathy Metabolic acidosis Protein calorie malnutrition Thrombocytopenia
--- OUTSIDE RECORDS SUMMARY | 2017-03-05 17:57 | XMS REPORT | Continuity of Care Document ---
Author Author [facility] Organization [facility] Address Unknown Phone Unavailable Care Team Providers Care Skating Rink Manager Name Role Phone CALISTA MARSHALL MD Primary Care Physician [phone] Insurance Providers Payer Name Policy Number Subscriber Name Relationship Medicarehumana Gold Hmo [id number] Ellyn Rodríguez 20 Self Advance Directives Directive [...] 30 Days 11/27/14 Active Fluticasone Propionate 2 [place] EA NOSTRIL DAILY 30 Days 11/27/14 Active [...] Discharge Date 11/27/14 5:12pm Disposition 04 TO [facility] HOME/FACILITY Instructions/Education Provided DI for [...] HERSELF [facility] GETTING [facility]ICK [facility] NORMALLY HAS BEEN TAKING HER [...] Latex Adverse Reaction Unknown ANALYPHAXYS Active 11/08/14 [place] Adverse Reaction Intermediate Vomiting Active 11/08/14 Egg Yolk Adverse Reaction Intermediate Active 12/18/10 Immunizations Name Given Type Hx Influenza Vaccination Y FALL 2013 Historical Hx Pneumococcal Vaccination Y OCT 2014 OR SEP 2014 Historical Hx Influenza Vaccination Y FALL 2013 Historical Vital Signs Acute Vital Signs Vital Response Date/Time Temperature (Fahrenheit) 97.4 deg F (96.8 - 99.1) Temperature (Calculated Celsius) 36.63042 degrees C (36.0 - 37.3) Temperature Source [...] performed at [facility], [address],[place] [address] Supervisor Lead Refinery Hansel Irwin DO Anti-Nuclear Antibody Interpret November 12, 2014 7:01pm see below - < 100 U/mL: [id number] U/mL: Indeterminate >120 U/mL: Positive Anti-Platelet Antibody [...] 2012 9:42am Ref lab rpt scanned - [facility]--- 06/10 0845 ---CPEP previously reported as: SENT [...] 286 mg/dL H - Haptoglobin performed at [facility], [address], [place] [address]Wavdqhe Director Hansel Irwin, DO Hematocrit November 27, [...] - [place], Quant Add On performed at [facility], [address] [place] [address] Supervisor Lead Refinery Hansel Irwin, DO Icterus Index November 27, [...] Report November 09, 2014 7:39pm REFERENCE LAB [id number] - Lactate Dehydrogenase November 11, 2014 8:32am [...] Method: Jenae Based Assay Performing Laboratory CLIA# [id number] Test Performed by: [place] [address] Inbound Customer Service Representative: Blayne Nascimento M.D. Platelet Antibody performed at [facility], [address] [place] [address] Supervisor Lead Refinery Oleksandr Jeffers MD Platelet Count November 27, [...] 27, 2014 4:48am 56.6 FL H 36.9-50.2 ENGINEER REMOTE CONTROL DIESEL Antibody November 12, 2014 7:01pm 148 U/mL [...] Has specimen been collected/obtained? Y Urine Specific [place] November 20, 2014 3:15pm 1.025 - Has [...] 2014 12:31pm Name: ELLYN RODRÍGUEZ Unit #: [id number] : [id number] Sex: F Loc / Svc: SRG DOS: 11/20/14 Signed Report #: [id number] DIAGNOSTIC IMAGING REPORT TYPE OF EXAM: KNEE [...] ARMSTRONG MD EMERGENCY DEPT VISIT completed 11/08/14 [id number] ITEM OR SERVICE completed 11/08/14 [id number]"INFUSION, NORMAL SALINE SOLUTION , 1000 CC" completed 11/08/14 [id number]"INFUSION, NORMAL SALINE SOLUTION , 1000 CC" completed 11/08/14 Encounters Encounter Location Date/Time Discharged Inpatient [facility] 11/23/14 5:18pm Discharged Inpatient [facility] 11/11/14 1:08pm Departed Emergency Room [facility] 11/08/14 10:37am Recent Diagnosis Wound, open, hip or thigh Generalized weakness Generalized weakness Falls Type II diabetes mellitus Morbid obesity Depression Fibromyalgia Anemia Acute kidney injury Otalgia of right ear
--- NOTE | 2017-03-05 18:04 | ERPDOC ---
Departure Disposition Decision Date: March 05, 2017 Disposition Decision Time: 18:09 Disposition: 01 DISCHARGED HOME, SELF-CARE Impression Impression Impression: Primary Impression: Lumbar strain Additional Impression: Strain of lumbar paraspinal muscle Severity: Moderate Condition: Stable Seen By: Physician only Referrals: NIKKI MCMANUS APRN (Family) Patient Instructions: Acute Low Back Pain (ED) Problems/Meds/Labs Reviewed?: Yes Medications reviewed and manag: Yes Additional Instructions: You are given Toradol and morphine shots. You will need to be careful this evening as this will impair your judgment. Recommend you try prednisone 30 mg daily for 3 days to see if we can decrease the inflammation in the muscle to make him more comfortable. Follow up care ordered?: Yes Mental Status: Alert, Oriented HPI - Back Pain General Chief Complaint: Low Back Pain or Injury Stated Complaint: SEVERE BACK PAIN Time Seen by Provider: 17:39 HPI - Back Pain Initial Comments 51-year-old female presents with very low back pain. Patient states it came on out of the blue on , and has gotten worse. She had an appointment set for Tuesday, was planning on going in to be seen for other issues and then adding the back pain into it, but please be sure because her son was truant. Is a long-standing history of fibromyalgia and chronic low back pain, is on baclofen and tizanidine. She has previously been on oral morphine for her back pain but she is no longer taking it. She has multiple medication allergies which I reviewed with her. She uses a cane for ambulation due to the chronic neuropathy in her legs. Allergies: Coded Allergies: lovastatin (Verified Allergy, Mild, 11/26/16) STATES THIS IS RELATED TO ASPERGILLUS AND THIS IS SOMETHING LSHE IS ALLERGIC TOO. CAUSES HEAD EDEMA naproxen (Verified Allergy, Mild, ITCHING, 11/26/16) talc (Verified Allergy, Mild, ITCHING, 11/26/16) Bananas (Verified Allergy, Unknown, 11/26/16) diazepam (Verified Allergy, Unknown, HAD TO HAVE ROMAZICON WITH IT, 11/26/16 ) oxycodone (Unverified Allergy, Unknown, 11/26/16) strawberry (Verified Adverse Reaction, Intermediate, Vomiting, 11/26/16) hydrocodone bit (Verified Adverse Reaction, Unknown, ITCHING, 11/26/16) latex (Verified Adverse Reaction, Unknown, ANALYPHAXYS, 11/26/16) Uncoded Allergies: Egg Yolk (Adverse Reaction, Intermediate, 12/18/10) Vomiting Past History Patient Surgical History GB Tonsils Carpel tunnel shoulder Past Medical History Metabolic: diabetes, hypercholesterolemia, other Cardiac: other Date Last Echocardiogram: Dec 20, 2010 Ejection Fraction (%): 64 Respiratory: asthma GI: GERD Neurological: fibromyalgia, migraines, neuropathy Hematologic: anemia Infectious: other Psychological: anxiety, depression, other Surgical History General: gallbladder, tonsils Joint: carpal tunnel, other, shoulder Vaccines Hx Influenza Vaccination: Yes (Fall 2014) Hx Pneumococcal Vaccination: Yes (OCT 2014 OR SEP 2014) Social History Substance Use Type: does not use Alcohol Intake: none Review of Systems Constitutional Constitutional: difficulty falling asleep, early awakening, weight gain Pulmonary Respiratory: dyspnea Musculoskeletal General: see HPI Neurological General: see HPI Psychiatric Psychiatric: anxiety All other Systems All Other Systems: Reviewed and Negative Physical Exam General General Nourishment: obese Distress Description . Anxious about the pain in her back General Body Habitus: disheveled Vitals and Pain Weight: Kilograms: 140.000 Height (feet): 5 Height (inches): 10.00 Triage Pain Scale: Normal Exams: Head: Normocephalic w/o trauma Chest/Resp: Clear all green, with good airflow, and symmetry bilaterally CV: Regular rate and rhythm, without murmur or gallop, Pulses 2+ all extremities, capillary refill, <2 seconds all ext., no pedal edema noted Neurologic: Patient is alert, and oriented, cranial nerves, motor/sensory/ cerebellar, exams w/o gross deficits, to observation Musculoskeletal (brief) Comments Tenderness along lower thoracic lumbar spine out to radiating musculature. Patient is tender to gentle touch. She does not feel this is pain in the bone. Differential Diagnoses Considering: Lumbar Sprain, Lumbar Strain, Thoracic Sprain, Thoracic Strain Progress Progress Progress Patient has a long-standing history of chronic pain and neuropathic issues. She has been on Lyrica for at least last 3 months. She states she has been off of oral morphine, has allergies to oxycodone and hydrocodone. She has an allergy to naproxen but this just makes her sick. I did agree to give her 30 mg of Toradol and 4 mg of morphine IM. She does already have 2 different muscle relaxers which I would refer her to continue. Send her with a low-dose prednisone burst of 30 mg daily for 3 days to see if this helps at all with her pain. Follow-up with primary care provider. Handwritten prescription was given for the prednisone. TYRESE DICK MD March 05, 2017 18:04
[2017-03-05] MEDS ORDERED: KETOROLAC 30mg/ml INJECTION IM ONE (18:15)
[2017-03-05] MEDS ORDERED: MORPHINE SULFATE 4 MG SYRINGE IM ONE (18:15)
[2017-03-05] MEDS ORDERED: TIZA4TAB4 PO (18:22)
[2017-03-05] MEDS ORDERED: [UNRECOGNIZED DRUG - CODE] PO (18:22)
[2017-03-05 18:38] VITALS: BP 155/86; PULSE 89; RESP 18; O2SAT 96
== END 2017-03-05 18:38 | disposition home or self-care (01) ==
LOC: ED 17:36
DX: S39.012A Strain of muscle, fascia and tendon of lower back, initial encounter (principal); X58.XXXA Exposure to other specified factors, initial encounter; Y93.9 Activity, unspecified; Y92.9 Unspecified place or not applicable; Y99.8 Other external cause status
CPT/HCPCS: 96372; 99283; J1885

== ENCOUNTER 2017-03-06 00:53 | Observation (INO) | payer MEDICARE, BC ==
[~2017-03-06] VITALS: Ht 177.8 cm; Wt 140.8 kg
[2017-03-06] VITALS (25 sets, daily range): BP systolic 86–199; BP diastolic 48–135; PULSE 65–106; RESP 9–46; TEMP 97.2–98.5; O2SAT 95–99; Ht 177.8 cm; Wt 140.8 kg
[~2017-03-06 00:53] MED LIST changes: -ASPI-557 PO; -MAGN400T6 PO; -MIDO10TA PO; -MIDO5TAB PO; -ONDA-55 PO; -QUET300T44 PO; +TIZA4TAB4 PO; -TRAM50TA4 PO; +[UNRECOGNIZED DRUG - CODE] PO
--- OUTSIDE RECORDS SUMMARY | 2017-03-06 00:57 | XMS REPORT | Continuity of Care Document ---
Author Author [facility] Organization [facility] Address Unknown Phone Unavailable Care Team Providers Care Reel System Operator Name Role Phone CALISTA MARSHALL MD Primary Care Physician [phone] Insurance Providers Payer Name Policy Number Subscriber Name Relationship Medicarehumana Gold Hmo [id number] Ellyn Rodríguez 20 Self Advance Directives Directive [...] Latex Adverse Reaction Unknown ANALYPHAXYS Active 11/08/14 [place] Adverse Reaction Intermediate Vomiting Active 11/08/14 Egg Yolk Adverse Reaction Intermediate Active 12/18/10 Immunizations Name Given Type Hx Influenza Vaccination Y 2013 Historical Hx Influenza Vaccination Y 2013 Historical Vital Signs Acute Vital Signs Vital Response Date/Time Temperature (Fahrenheit) 100.4 deg F (96.8 - 99.1) Temperature (Calculated Celsius) 38.71880 degrees C (36.0 - 37.3) Pulse Rate [...] 2012 9:42am Ref lab rpt scanned - [facility]--- 06/10 0845 ---CPEP previously reported as: SENT [...] Has specimen been collected/obtained? Y Urine Specific [place] November 08, 2014 1:20pm 1.020 - Has [...] Report September 06, 2012 8:50am REFERENCE LAB [id number] - HDL Cholesterol Direct July 10, 2012 [...] 2014 12:31pm Name: ELLYN RODRÍGUEZ Unit #: [id number] : 1965 Sex: F Loc / Svc: ED DOS: 11/08/14 Signed Report #: [id number] DIAGNOSTIC IMAGING REPORT TYPE OF EXAM: CHEST, [...] Encounters Encounter Location Date/Time Departed Emergency Room [facility] 11/08/14 10:37am Recent Diagnosis
--- OUTSIDE RECORDS SUMMARY | 2017-03-06 00:59 | XMS REPORT | Continuity of Care Document ---
Author Author [facility] Organization [facility] Address Unknown Phone Unavailable Care Team Providers Care Health Services Manager Name Role Phone CALISTA MARSHALL MD Primary Care Physician [phone] Insurance Providers Payer Name Policy Number Subscriber Name Relationship Medicarehumana Gold Hmo [id number] Ellyn Farr 20 Self Advance Directives Directive [...] Latex Adverse Reaction Unknown ANALYPHAXYS Active 11/08/14 [place] Adverse Reaction Intermediate Vomiting Active 11/08/14 Egg Yolk Adverse Reaction Intermediate Active 12/18/10 Immunizations Name Given Type Hx Influenza Vaccination Y UNSURE-PATIENT IS CONFUSED Historical Hx Pneumococcal Vaccination Y UNSURE-PATIENT IS CONFUSED Historical Hx Influenza Vaccination Y UNSURE-PATIENT IS CONFUSED Historical Vital Signs Acute Vital Signs Vital Response Date/Time Temperature (Fahrenheit) 97.4 deg F (96.8 - 99.1) Temperature (Calculated Celsius) 36.02743 degrees C (36.0 - 37.3) Temperature Source [...] Method: Jenae Based Assay Performing Laboratory CLIA# [id number] Test Performed by: [place] [address] Insurance Healthcare Consultant: Blayne Nascimento M.D. Platelet Antibody performed at [facility], [address] [place] [address] Gas Turbine Assembler Oleksandr Jeffers MD Anti-Platelet Antibody November 12, [...] H - [place] Panel, Quantitative performed at [facility], [address] [place] [address] Gas Turbine Assembler Hansel Irwin DO Anti-Nuclear Antibody Interpret November 12, 2014 7:01pm see below - < 100 U/mL: [id number] U/mL: Indeterminate >120 U/mL: Positive Aspartate Amino [...] 286 mg/dL H - Haptoglobin performed at [facility], [address], [place] [address]Wtiqgko Director Hansel Irwin, DO Hematocrit November 15, [...] - [place], Quant Add On performed at [facility], [address] [place], [place] Gas Turbine Assembler Hansel Irwin, DO Icterus Index November 15, [...] Report November 09, 2014 7:39pm REFERENCE LAB [id number] - Lactate Dehydrogenase November 11, 2014 8:32am [...] 15, 2014 4:42am 50.3 FL H 36.9-50.2 [place] Antibody November 12, 2014 7:01pm 148 U/mL [...] Has specimen been collected/obtained? Y Urine Specific [place] November 09, 2014 7:00pm 1.020 - Has [...] 2014 12:31pm Name: ELLYN FARR Unit #: [id number] : 1965 Sex: F Loc / Sv: MED DOS: 11/09/14 Signed Report #: [id number] DIAGNOSTIC IMAGING REPORT TYPE OF EXAM: CTA [...] ARMSTRONG MD EMERGENCY DEPT VISIT completed 11/08/14 [id number] ITEM OR SERVICE completed 11/08/14 [id number]"INFUSION, NORMAL SALINE SOLUTION , 1000 CC" completed 11/08/14 [id number]"INFUSION, NORMAL SALINE SOLUTION , 1000 CC" completed 11/08/14 Encounters Encounter Location Date/Time Discharged Inpatient [facility] 11/11/14 1:08pm Departed Emergency Room [facility] 11/08/14 10:37am Recent Diagnosis Bronchitis Pharyngitis Dehydration Diabetes mellitus type 2, uncontrolled Fibromyalgia Hyperosmolality with hypernatremia Morbid obesity with BMI of 40.0-44.9, adult SIRS (systemic inflammatory response syndrome) Wound, open, hip or thigh Hypokalemia Metabolic encephalopathy Metabolic acidosis Protein calorie malnutrition Thrombocytopenia
--- OUTSIDE RECORDS SUMMARY | 2017-03-06 01:00 | XMS REPORT | Continuity of Care Document ---
Author Author [facility] Organization [facility] Address Unknown Phone Unavailable Care Team Providers Care Glass Scullion Name Role Phone CALISTA MARSHALL MD Primary Care Physician [phone] Insurance Providers Payer Name Policy Number Subscriber Name Relationship Medicarehumana Gold Hmo [id number] Ellyn Rodríguez 20 Self Advance Directives Directive [...] 30 Days 11/27/14 Active Fluticasone Propionate 2 [place] EA NOSTRIL DAILY 30 Days 11/27/14 Active [...] Discharge Date 11/27/14 5:12pm Disposition 04 TO [facility] HOME[facility]FACILITY Instructions/Education Provided DI for Muscle [...] HERSELF [facility]. NORMALLY HAS BEEN TAKING [...] Latex Adverse Reaction Unknown ANALYPHAXYS Active 11/08/14 [place] Adverse Reaction Intermediate Vomiting Active 11/08/14 Egg Yolk Adverse Reaction Intermediate Active 12/18/10 Immunizations Name Given Type Hx Influenza Vaccination Y FALL 2013 Historical Hx Pneumococcal Vaccination Y OCT 2014 OR SEP 2014 Historical Hx Influenza Vaccination Y FALL 2013 Historical Vital Signs Acute Vital Signs Vital Response Date/Time Temperature (Fahrenheit) 97.4 deg F (96.8 - 99.1) Temperature (Calculated Celsius) 36.76499 degrees C (36.0 - 37.3) Temperature Source [...] performed at [facility], [address],[place] [address] Assistant Tennis Coach Hansel Irwin DO Anti-Nuclear Antibody Interpret November 12, 2014 7:01pm see below - < 100 U/mL: [id number] U/mL: Indeterminate >120 U/mL: Positive Anti-Platelet Antibody [...] 2012 9:42am Ref lab rpt scanned - [facility]--- 06/10 0845 ---CPEP previously reported as: SENT [...] 286 mg/dL H - Haptoglobin performed at [facility], [address], [place] [address]Mrcjvoh Director Hansel Irwin, DO Hematocrit November 27, [...] - [place], Quant Add On performed at [facility], [address] [place] [address] Assistant Tennis Coach Hansel Irwin, DO Icterus Index November 27, [...] Report November 09, 2014 7:39pm REFERENCE LAB [id number] - Lactate Dehydrogenase November 11, 2014 8:32am [...] Method: Jenae Based Assay Performing Laboratory CLIA# [id number] Test Performed by: [place] [address] Sap Bpc Developer: Blayne Nascimento M.D. Platelet Antibody performed at [facility], [address] [place] [address] Assistant Tennis Coach Oleksandr Jeffers MD Platelet Count November 27, [...] 27, 2014 4:48am 56.6 FL H 36.9-50.2 PE ELECTRICAL ENGINEER Antibody November 12, 2014 7:01pm 148 U/mL [...] Has specimen been collected/obtained? Y Urine Specific [place] November 20, 2014 3:15pm 1.025 - Has [...] 2014 12:31pm Name: ELLYN RODRÍGUEZ Unit #: [id number] : 1965 Sex: F Loc / Svc: SRG DOS: 11/20/14 Signed Report #: [id number] DIAGNOSTIC IMAGING REPORT TYPE OF EXAM: KNEE [...] ARMSTRONG MD EMERGENCY DEPT VISIT completed 11/08/14 [id number] ITEM OR SERVICE completed 11/08/14 [id number]"INFUSION, NORMAL SALINE SOLUTION , 1000 CC" completed 11/08/14 [id number]"INFUSION, NORMAL SALINE SOLUTION , 1000 CC" completed 11/08/14 Encounters Encounter Location Date/Time Discharged Inpatient [facility] 11/23/14 5:18pm Discharged Inpatient [facility] 11/11/14 1:08pm Departed Emergency Room [facility] 11/08/14 10:37am Recent Diagnosis Wound, open, hip or thigh Generalized weakness Generalized weakness Falls Type II diabetes mellitus Morbid obesity Depression Fibromyalgia Anemia Acute kidney injury Otalgia of right ear
--- OUTSIDE RECORDS SUMMARY | 2017-03-06 01:00 | XMS REPORT | Continuity of Care Document ---
Author Author [facility] Organization [facility] Address Unknown Phone Unavailable Support Name Relationship Address Phone TYRESE DICK MD Caregiver [address] [place] [address] Unavailable NIKKI MCMANUS APRN Caregiver [address] [place] [address] Unavailable LAVON BARRY Next Of Kin [address] [place], [place] [id number] Insurance Providers Guarantor Ellyn Rodríguez Address [address] [facility] [place] [address] Email [email or web address] Payer SSN [employer] Select Plan 65 Policy Number [id number] Subscriber's Name YordanEllyn Relationship 18 Self Group Number [id number] Payer Medicare Policy Number [id number] Subscriber's Name Ellyn Rodríguez Relationship 18 Self Advance Directives Directive Response Recorded Date/Time Advanced Directives Type None 03/05/17 5:40pm Chief Complaint and Reason for Visit Chief Complaint Low Back Pain or Injury Reason for Visit [id number] Problems Active Problems Medical Problem Onset Date [...] pain in left foot Unknown Lightheadedness Unknown Lumbar strain Unknown Nonspecific low blood pressure reading Unknown Orthostatic hypotension Unknown Strain of lumbar paraspinal muscle Unknown Medications Current Home Medications Medication Dose Units Route Directions Days Qty Instructions Start Date Acetaminophen (Tylenol Arthritis) 650 Mg Tablet 1,300 Mg Oral Every 8 Hours as needed for Pain 11/06/12 Albuterol Sulfate 2.5 Mg/3 Ml Vial.neb 2.5 Mg Aerosol Tx. Three Times A Day as needed for Wheezing 11/12/16 Asenapine Maleate (Saphris) 10 Mg Tab.subl 10 Mg Sublingual Bedtime 11/12/16 Aspirin 325 Mg Tablet 650 Mg Oral Three Times A Day 11/12/16 Atorvastatin Calcium (Lipitor) 20 Mg Tablet 20 Mg Oral Bedtime Baclofen 10 Mg Tablet 5 Mg Oral Three Times A Day 07/11/16 Bupropion Hcl (Bupropion Xl) 150 Mg [...] Fluticasone Propionate (Fluticasone Prop 50 Mcg/Actuation Nasal [place]) 120 [place]/16 G [place] 2 [place] Each Nostril Daily 09/27/15 Fluticasone/Salmeterol (Advair 100-50 Diskus) 1 Disk W/Dev Inhaler 1 Puff Inhalation Twice A Day as needed for Shortness Of Air 02/24/16 Gabapentin 600 Mg Tablet 1,200 Mg Oral Three Times A Day 09/27/15 Glipizide 5 Mg Tablet 5 Mg Oral Daily 07/11/16 Ibuprofen 800 Mg Tablet 800 Mg Oral Every 8 Hours as needed for Pain 11/12/16 Lactase (Lactaid) 3,000 Unit Tablet 3,000 Unit Oral As Needed Metformin Hcl 1,000 Mg Tablet 1,000 Mg Oral Twice Daily With Meals 11/08/14 Niacin (Niacin Er) 1,000 Mg Tab.er.24h 1,000 Mg Oral Bedtime [place]-3/Dha/Epa/Fish Oil (Fish Oil 1,000 Mg Softgel) 1 Each Capsule 2 Tab Oral Twice A Day 02/24/16 Pantoprazole Sodium 20 Mg Tablet.dr 20 Mg Oral Daily 02/24/16 Sumatriptan Succinate 50 Mg Tablet 50 Mg Oral Four Times Daily as needed for Headache 02/24/16 Tizanidine Hcl 4 Mg Tablet 8 Mg Oral Three Times A Day 03/05/17 Topiramate (Topamax) 200 Mg Tablet 400 Mg Oral Twice A Day Past Home Medications Medication Directions Ordered Status [...] 11/06/12 Discontinued Duloxetine Hcl (Cymbalta) 60 Mg Capsule.dr, 60 Mg Oral Daily 12/17/10 Discontinued Fluconazole (Diflucan) 150 Mg Tablet, 150 Mg Oral Daily Prn 11/06/12 Discontinued Fluticasone Propionate (Flonase) 16 Gm [place].susp, 16 Gm Nasal Daily Discontinued Gabapentin 300 [...] Problem Response Recorded Date/Time Onset Date Status Hx Substance Use No 03/05/2017 5:55pm Not Applicable Not Applicable Hx Alcohol Use No 03/05/2017 5:55pm Not Applicable Not Applicable Has the pt used tobacco in the last 12 months No 09/27/2015 7:45pm Not Applicable Not Applicable Tobacco Usage none 09/28/2015 10:12am Not Applicable Not Applicable Query Response Start Date Stop Date Smoking Status Never smoker Hospital Discharge Instructions No hospital discharge instructions. Plan of Care Discharge Date 03/05/17 6:38pm Disposition 01 DISCHARGED HOME, SELF-CARE Condition at Discharge Stable Instructions/Education Provided Acute Low Back Pain (ED) Prescriptions See Medication Section Referrals NIKKI MCMANUS APRN Address: [address] [place] [address] Additional Instructions/Education You are given Toradol and morphine shots. You will need to be careful this evening as this will impair your judgment. Recommend you try prednisone 30 mg daily for 3 days to see if we can decrease the inflammation in the muscle to make him more comfortable. Functional Status No functional status results. Allergies, [...] Latex Adverse Reaction Unknown ANALYPHAXYS Active 11/26/16 [place] Adverse Reaction Intermediate Vomiting Active 11/26/16 Egg Yolk Adverse Reaction Intermediate Active 12/18/10 Immunizations Query Response on File Recorded Date/Time Hx Influenza Vaccination Y fall 201409/27/15 7:45pm Hx Pneumococcal Vaccination Y OCT 2014 OR SEP 2014 09/27/15 7:45pm Hx Influenza Vaccination Y fall 201409/27/15 7:45pm DTaP Vaccine History UNKNOWN 03/05/17 5:55pm Influenza Vaccine Hx fall 201503/05/17 5:55pm Pneumococcal PCV13 Vaccine Hx 201411/26/16 7:19pm Vital Signs Acute Vital Signs Vital Response Date/Time Pulse Rate (adult) 89 bpm (60 - 100) 03/05/2017 6:38pm Respiratory Rate 18 breaths/min (10 - 20) 03/05/2017 6:38pm O2 Sat by Pulse Oximetry 96 % (90 - 100) 03/05/2017 6:38pm Blood Pressure 155/86 mm Hg 03/05/2017 6:38pm Height (Feet) 5 feet 03/05/2017 5:40pm Height (Inches) 10.00 inches 03/05/2017 5:40pm Weight (Kilograms) 140.000 kg 03/05/2017 5:40pm Body Mass Index (BMI) 44.0 03/05/2017 5:40pm Results No known relevant diagnostic tests, laboratory data and/or discharge summary. Procedures No known history of procedures. Encounters Encounter Location Arrival/Admit Date Discharge/Depart Date Attending Provider Departed Emergency Room [facility] 03/05/17 5:36pm 03/05/17 6: 38pm TYERSE DICK MD Recent Diagnosis
[2017-03-06] MEDS ORDERED: NORMAL SALINE 1,000 ML IV ONE (01:15)
--- OUTSIDE RECORDS SUMMARY | 2017-03-06 01:16 | XMS REPORT | Continuity of Care Document ---
Author Author [facility] Organization [facility] Address Unknown Phone Unavailable Care Team Providers Care Coagulation Operator Name Role Phone CALISTA MARSHALL MD Primary Care Physician [phone] Insurance Providers Payer Name Policy Number Subscriber Name Relationship Medicarehumana Gold Hmo [id number] Ellyn Rodríguez 20 Self Advance Directives Directive [...] Latex Adverse Reaction Unknown ANALYPHAXYS Active 11/08/14 [place] Adverse Reaction Intermediate Vomiting Active 11/08/14 Egg Yolk Adverse Reaction Intermediate Active 12/18/10 Immunizations Name Given Type Hx Influenza Vaccination Y 2013 Historical Hx Influenza Vaccination Y 2013 Historical Vital Signs Acute Vital Signs Vital Response Date/Time Temperature (Fahrenheit) 100.4 deg F (96.8 - 99.1) Temperature (Calculated Celsius) 38.21334 degrees C (36.0 - 37.3) Pulse Rate [...] 2012 9:42am Ref lab rpt scanned - [facility]--- 06/10 0845 ---CPEP previously reported as: [...] Has specimen been collected/obtained? Y Urine Specific [place] November 08, 2014 1:20pm 1.020 - Has [...] Report September 06, 2012 8:50am REFERENCE LAB [id number] - HDL Cholesterol Direct July 10, 2012 [...] 2014 12:31pm Name: ELLYN RODRÍGUEZ Unit #: [id number] : 1965 Sex: F Loc / Svc: ED DOS: 11/08/14 Signed Report #: [id number] DIAGNOSTIC IMAGING REPORT TYPE OF EXAM: CHEST, [...] Encounters Encounter Location Date/Time Departed Emergency Room [facility] 11/08/14 10:37am Recent Diagnosis
--- OUTSIDE RECORDS SUMMARY | 2017-03-06 01:18 | XMS REPORT | Continuity of Care Document ---
Author Author [facility] Organization [facility] Address Unknown Phone Unavailable Care Team Providers Care Revenue Specialist Name Role Phone CALISTA MARSHALL MD Primary Care Physician [phone] Insurance Providers Payer Name Policy Number Subscriber Name Relationship Medicarehumana Gold Hmo [id number] Ellyn Farr 20 Self Advance Directives Directive [...] Latex Adverse Reaction Unknown ANALYPHAXYS Active 11/08/14 [place] Adverse Reaction Intermediate Vomiting Active 11/08/14 Egg Yolk Adverse Reaction Intermediate Active 12/18/10 Immunizations Name Given Type Hx Influenza Vaccination Y UNSURE-PATIENT IS CONFUSED Historical Hx Pneumococcal Vaccination Y UNSURE-PATIENT IS CONFUSED Historical Hx Influenza Vaccination Y UNSURE-PATIENT IS CONFUSED Historical Vital Signs Acute Vital Signs Vital Response Date/Time Temperature (Fahrenheit) 97.4 deg F (96.8 - 99.1) Temperature (Calculated Celsius) 36.73478 degrees C (36.0 - 37.3) Temperature Source [...] Method: Jenae Based Assay Performing Laboratory CLIA# [id number] Test Performed by: [place] [address] Outdoor Adventure Leader: Blayne Nascimento M.D. Platelet Antibody performed at [facility], [address] [place] [address] Au Pair Oleksandr Jeffers MD Anti-Platelet Antibody November 12, [...] H - [place] Panel, Quantitative performed at [facility], [address] [place] [address] Au Pair Hansel Irwin DO Anti-Nuclear Antibody Interpret November 12, 2014 7:01pm see below - < 100 U/mL: [id number] U/mL: Indeterminate >120 U/mL: Positive Aspartate Amino [...] mg/dL H - Haptoglobin performed at [facility], [address], [place] [address]Emratdf Director Hansel Irwin, DO Hematocrit November 15, [...] - [place], Quant Add On performed at [facility], [address] [place], [place] Au Pair Hansel Irwin, DO Icterus Index November 15, [...] Report November 09, 2014 7:39pm REFERENCE LAB [id number] - Lactate Dehydrogenase November 11, 2014 8:32am [...] 15, 2014 4:42am 50.3 [place] H 36.9-50.2 TMD TEACHER Antibody November 12, 2014 7:01pm 148 U/mL [...] Has specimen been collected/obtained? Y Urine Specific [place] November 09, 2014 7:00pm 1.020 - Has [...] 2014 12:31pm Name: ELLYN FARR Unit #: [id number] : 1965 Sex: F Loc / Sv: MED DOS: 11/09/14 Signed Report #: [id number] DIAGNOSTIC IMAGING REPORT TYPE OF EXAM: CTA [...] ARMSTRONG MD EMERGENCY DEPT VISIT completed 11/08/14 [id number] ITEM OR SERVICE completed 11/08/14 [id number]"INFUSION, NORMAL SALINE SOLUTION , 1000 CC" completed 11/08/14 [id number]"INFUSION, NORMAL SALINE SOLUTION , 1000 CC" completed 11/08/14 Encounters Encounter Location Date/Time Discharged Inpatient [facility] 11/11/14 1:08pm Departed Emergency Room [facility] 11/08/14 10:37am Recent Diagnosis Bronchitis Pharyngitis Dehydration Diabetes mellitus type 2, uncontrolled Fibromyalgia Hyperosmolality with hypernatremia Morbid obesity with BMI of 40.0-44.9, adult SIRS (systemic inflammatory response syndrome) Wound, open, hip or thigh Hypokalemia Metabolic encephalopathy Metabolic acidosis Protein calorie malnutrition Thrombocytopenia
--- OUTSIDE RECORDS SUMMARY | 2017-03-06 01:19 | XMS REPORT | Continuity of Care Document ---
Author Author [facility] Organization [facility] Address Unknown Phone Unavailable Care Team Providers Care Puncher Name Role Phone CALISTA MARSHALL MD Primary Care Physician [phone] Insurance Providers Payer Name Policy Number Subscriber Name Relationship Medicarehumana Gold Hmo [id number] Ellyn Rodríguez 20 Self Advance Directives Directive [...] 30 Days 11/27/14 Active Fluticasone Propionate 2 [place] EA NOSTRIL DAILY 30 Days 11/27/14 Active [...] Discharge Date 11/27/14 5:12pm Disposition 04 TO [facility] HOME[facility]FACILITY Instructions/Education Provided DI for [...] HERSELF SINCE GETTING SICK AND BEING [facility]PITALIZED [facility]. NORMALLY HAS BEEN [...] Latex Adverse Reaction Unknown ANALYPHAXYS Active 11/08/14 [place] Adverse Reaction Intermediate Vomiting Active 11/08/14 Egg Yolk Adverse Reaction Intermediate Active 12/18/10 Immunizations Name Given Type Hx Influenza Vaccination Y FALL 2013 Historical Hx Pneumococcal Vaccination Y OCT 2014 OR SEP 2014 Historical Hx Influenza Vaccination Y FALL 2013 Historical Vital Signs Acute Vital Signs Vital Response Date/Time Temperature (Fahrenheit) 97.4 deg F (96.8 - 99.1) Temperature (Calculated Celsius) 36.75584 degrees C (36.0 - 37.3) Temperature Source [...] performed at [facility], [address],[place] [address] Obstetrics Nurse Practitioner Hansel Irwin DO Anti-Nuclear Antibody Interpret November 12, 2014 7:01pm see below - < 100 U/mL: [id number] U/mL: Indeterminate >120 U/mL: Positive Anti-Platelet Antibody [...] 2012 9:42am Ref lab rpt scanned - [facility]--- 06/10 0845 ---CPEP previously reported as: [...] 286 mg/dL H - Haptoglobin performed at [facility], [address] [place], [place] [address]Tqxgovx Director Hansel Irwin, DO Hematocrit November 27, [...] - [place], Quant Add On performed at [facility], [address] [place] [address] Obstetrics Nurse Practitioner Hansel Irwin, DO Icterus Index November 27, [...] Report November 09, 2014 7:39pm REFERENCE LAB [id number] - Lactate Dehydrogenase November 11, 2014 8:32am [...] Method: Jenae Based Assay Performing Laboratory CLIA# [id number] Test Performed by: [place] [address] Dosier Operator: Blayne Nascimento M.D. Platelet Antibody performed at [facility], [address] [place] [address] Obstetrics Nurse Practitioner Oleksandr Jeffers MD Platelet Count November 27, [...] 27, 2014 4:48am 56.6 FL H 36.9-50.2 DIESEL AUTOMOTIVE TECHNICIAN Antibody November 12, 2014 7:01pm 148 U/mL [...] Has specimen been collected/obtained? Y Urine Specific [place] November 20, 2014 3:15pm 1.025 - Has [...] 2014 12:31pm Name: ELLYN RODRÍGUEZ Unit #: [id number] : 1965 Sex: F Loc / Svc: SRG DOS: 11/20/14 Signed Report #: [id number] DIAGNOSTIC IMAGING REPORT TYPE OF EXAM: KNEE [...] ARMSTRONG MD EMERGENCY DEPT VISIT completed 11/08/14 [id number] ITEM OR SERVICE completed 11/08/14 [id number]"INFUSION, NORMAL SALINE SOLUTION , 1000 CC" completed 11/08/14 [id number]"INFUSION, NORMAL SALINE SOLUTION , 1000 CC" completed 11/08/14 Encounters Encounter Location Date/Time Discharged Inpatient [facility] 11/23/14 5:18pm Discharged Inpatient [facility] 11/11/14 1:08pm Departed Emergency Room [facility] 11/08/14 10:37am Recent Diagnosis Wound, open, hip or thigh Generalized weakness Generalized weakness Falls Type II diabetes mellitus Morbid obesity Depression Fibromyalgia Anemia Acute kidney injury Otalgia of right ear
--- NOTE | 2017-03-06 01:20 | ERPDOC ---
Departure Disposition Decision Date: March 06, 2017 Disposition Decision Time: 03:16 Disposition: 02 TO [facility] Impression Impression Impression: Primary Impression: Metabolic encephalopathy Additional Impressions: Metabolic acidosis Dehydration Intentional non-suicidal overdose involving multiple drugs Encounter type: initial encounter Qualified Codes: T50.902A - Poisoning by unspecified drugs, medicaments and biological substances, intentional self-harm , initial encounter Severity: Severe Condition: Stable Seen By: Physician only Referrals: NIKKI MCMANUS APRN (Family) Problems/Meds/Labs Reviewed?: Yes Medications reviewed and manag: Yes Follow up care ordered?: Yes Mental Status: Alert Critical Care Note Total Time (mins): 45 Critical Care Spent: [id number] care of pt, Reviewing test results, Discuss the case w/staff, Documenting the MR, Discussion w/ family/DPOA During this visit the pt was: Critically Ill, At Risk of Deterioration HPI - General Medical General Stated Complaint: ACCIDENTAL OD Time Seen by Provider: 00:54 Source: patient, family, EMS Exam Limitations: no limitations HPI - General Medical Initial Comments Patient presents by EMS with transient confusion and somnolence after double dosing herself intentionally on 2 separate muscle relaxants and her gabapentin and an effort to help with her back pain. Patient was seen earlier in the day, for exacerbation of chronic back pain. At that time patient was given 4 mg of morphine and 60 mg Toradol injection at 5: 30 PM. At 9:30 PM the patient was allowed to drive home without incident, that she was able to walk, speak, had no difficulty. Poorly the patient went home and immediately took doses of her Zanaflex, 2 additional doses of baclofen, and 2 additional doses of her gabapentin, and an effort to treat her back pain. After all these medications, the patient was found to be words and hypersomnolent in the estimation of her son, and he called EMS for her to be evaluated. By the time EMS personnel arrived, the patient was alert and oriented, and already feeling much better. Patient was found to have significant decreased blood pressure, and was cautioned to come back to the ER for evaluation. Patient has a history of skin episodes of hypotension associated with what is thought to be orthostatic hypotension. Patient has this often, and the symptoms generally are mild and go away quickly. And has been evaluated multiple times including extensive cardiac evaluation with no significant pathology found in the past. Currently the patient's only complaint is that she feels a little woozy, and sleepy, consistent with medications that she took. Occurred At: home Onset: Rapid Duration: 1-3 hrs Severity: moderate Associated Symptoms: nausea/vomiting (transient nausea only), DENIES: chest pain, cough, diaphoresis, fever/chills, headaches, loss of appetite, malaise, rash, seizure, shortness of breath, syncope, weakness Allergies: Coded Allergies: lovastatin (Verified Allergy, Mild, 03/06/17) STATES THIS IS RELATED TO ASPERGILLUS AND THIS IS SOMETHING LSHE IS ALLERGIC TOO. CAUSES HEAD EDEMA naproxen (Verified Allergy, Mild, ITCHING, 03/06/17) talc (Verified Allergy, Mild, ITCHING, 03/06/17) Bananas (Verified Allergy, Unknown, 03/06/17) diazepam (Verified Allergy, Unknown, HAD TO HAVE ROMAZICON WITH IT, ) oxycodone (Unverified Allergy, Unknown, 03/06/17) strawberry (Verified Adverse Reaction, Intermediate, Vomiting, 03/06/17) hydrocodone bit (Verified Adverse Reaction, Unknown, ITCHING, 03/06/17) latex (Verified Adverse Reaction, Unknown, ANALYPHAXYS, 03/06/17) Uncoded Allergies: Egg Yolk (Adverse Reaction, Intermediate, 12/18/10) Vomiting Past History Patient Surgical History GB Tonsils Carpel tunnel shoulder Past Medical History Metabolic: diabetes, hypercholesterolemia, other Cardiac: other Date Last Echocardiogram: Dec 20, 2010 Ejection Fraction (%): 64 Respiratory: asthma GI: GERD Neurological: fibromyalgia, migraines, neuropathy Hematologic: anemia Infectious: other Psychological: anxiety, depression, other Surgical History General: gallbladder, tonsils Joint: carpal tunnel, other, shoulder Vaccines Hx Influenza Vaccination: Yes (Fall 2014) Hx Pneumococcal Vaccination: Yes (OCT 2014 OR SEP 2014) Social History Substance Use Type: does not use Alcohol Intake: none Review of Systems Constitutional Constitutional: DENIES: appetite decrease, appetite increase, chills, dizziness , fever, weakness ENMT Ears: DENIES: pain Hearing: DENIES: hearing loss, tinnitus Balance: DENIES: vertigo Mouth/Throat: DENIES: change in swallowing, change in voice, hoarsness, painful swallowing, sore throat Cardiovascular Cardiac: DENIES: chest pain, dyspnea on exertion Rhythm/Rate: DENIES: irregular beat, palpitations, tachycardia Vascular: DENIES: pedal edema Pulmonary Respiratory: DENIES: cough, dyspnea, pleuritic chest pain GI Upper Abdomen: nausea, DENIES: dysphagia, heartburn/indigestion, pain, vomiting Lower Abdomen: DENIES: blood in stool, constipation, diarrhea, pain General: DENIES: burning, dysuria, frequency, pain, urgency Musculoskeletal General: DENIES: cramps, joint pain, joint swelling, pain, weakness Integumentary Skin: DENIES: rash, sores Neurological General: DENIES: headache, numbness, tingling, vertigo, weakness Comments Somnolence Psychiatric Psychiatric: DENIES: anxiety, depression, nervousness Physical Exam General General Nourishment: well nourished, well developed, appears stated age, no acute distress General Body Habitus: well groomed Vitals and Pain First Documented Vital Signs Date Time Temp Pulse Resp B/P Pulse Ox O2 Delivery O2 Flow Rate FiO2 03/06/17 00:53 98.1 79 18 81/44 98 Room Air Weight: Kilograms: Height (feet): 5 Height (inches): 10.00 Triage Pain Scale: RN VS reviewed by Provider: Yes Normal Exams: Head: Normocephalic w/o trauma Eyes: Pupils are PERRLA w/ EOMI, No scleral icterus, irritation, or foreign bodies noted ENMT: No facial trauma, nasal exudates, pharyngeal erythema, or exudates are noted (dry mouth) Neck: Full range of motion, without adenopathy, JVD, bruits or thyromegaly Chest/Resp: Clear all green, with good airflow, and symmetry bilaterally CV: Regular rate and rhythm, without murmur or gallop, Pulses 2+ all extremities, capillary refill, <2 seconds all ext., no pedal edema noted Abdomen: Bowel sounds positive, soft, non-tender, non-distended, no hepatosplenomegaly, masses or bruits noted Lymphatic: No lymphadenopathy, or lymphedema noted Musculoskeletal: No tenderness, or deformity noted, good range of motion, all extremities Integumentary: No rashes, hives, or bruising noted, hair and nails, without abnormality Neurologic: Patient is alert, and oriented, cranial nerves, motor/sensory/ cerebellar, exams w/o gross deficits, to observation Psychiatric: Patient exhibits, appropriate attention, emotion and affect Progress Results/Orders Orders Procedure Category Date Status Time Iv Lock (Ed Only) EDM 03/06/17 Transmitted 00:54 Cbc W/Auto LAB 03/06/17 Complete Diff-Reflex Manual Cmp - Comprehensive LAB 03/06/17 Complete Metabolic Lactate - Lactic Acid LAB 03/06/17 Complete Procalcitonin LAB 03/06/17 Complete 00:54 Ua, Dip Wreflex LAB 03/06/17 Logged Microsc & Records Management Assistant 00:54 Drug Screen LAB 03/06/17 Logged Urine-Test [place] [facility] 00:54 Ethanol LAB 03/06/17 Complete Normal Saline (Normal PHA 03/06/17 Complete Saline Iv) 01:15 Blood Gas, Venous - LAB 03/06/17 Complete VBG Chest 1 View RAD 03/06/[address] In Facility: ED ADM 03/06/17 Transmitted 03:11 Measure Vital Signs JACQUIE 03/06/17 Transmitted 03:11 Notify Adm Physician JACQUIE 03/06/17 Transmitted In Am 03:11 Lab Results Laboratory Tests Test 03/06/17 01:21 03/06/17 01:22 03/06/17 01:57 Turbidity < 20 Sodium Level 147MEQ/L Potassium Level 4.3MEQ/L Chloride Level 111MEQ/L Carbon Dioxide Level 16MEQ/L Anion Gap 20MEQ/L Blood Urea Nitrogen 15.0MG/DL Creatinine 1.2MG/DL Glomerular Filtration Rate Calc 48 BUN/Creatinine Ratio 13RATIO Glucose Level 323MG/DL Calculated Osmolality 295MOSM/KG Calcium Level 9.6MG/DL Total Bilirubin 0.40MG/DL Icterus Index < 2 Aspartate Amino Transf (AST/SGOT) 23U/L Alanine Aminotransferase (ALT/SGPT) 31U/L Alkaline Phosphatase 87U/L Total Protein 7.9G/DL Albumin 4.7G/DL Globulin 3.2G/DL Albumin/Globulin Ratio 1.5RATIO Plasma Lactate 4.8MMOL/L Chemistry Specimen Hemolysis < 15 Alcohol, Quantitative <10MG/DL White Blood Count 16.1T/MM3 Red Blood Count 3.91M/MM3 Hemoglobin 10.8GM/DL Hematocrit 34.6% Mean Corpuscular Volume 88.5UM3 Mean Corpuscular Hemoglobin 27.6UUG Mean Corpuscular Hemoglobin Concent 31.2GM/DL RDW Standard Deviation 47.6FL Platelet Count 354T/MM3 Mean Platelet Volume 12.1UM3 Immature Granulocyte % (Auto) % Neutrophils (%) (Auto) % Lymphocytes (%) (Auto) % Monocytes (%) (Auto) % Eosinophils (%) (Auto) % Basophils (%) (Auto) % Absolute Immature Granulocyte (auto T/MM3 Absolute Neutrophils (auto) T/MM3 Absolute Lymphocytes (auto) T/MM3 Absolute Monocytes (auto) T/MM3 Absolute Eosinophils (auto) T/MM3 Absolute Basophils (auto) T/MM3 Neutrophils % (Manual) 77.0% Lymphocytes % (Manual) 23.0% Absolute Neutrophils (Manual) 12.4T/MM3 Lymphocytes # (Manual) 3.7T/MM3 Red Cell Morphology Comment Normal Procalcitonin 0.12NG/ML Venous Blood pH 7.245 Venous Blood Partial Pressure CO2 33.0MMHG Venous Blood Partial Pressure O2 44MMHG Venous Blood HCO3 14MEQ/L Venous Blood Total Carbon Dioxide 15MEQ/L Venous Blood Oxygen Saturation 73.0% Venous Blood Base Excess -12.0MMOL/L Oxygen Delivery Method (LAB) Room air Blood Gas Oxygen Liter Flow Blood Gas Oxygen Percent Given Medications Current ED Medications Sodium Chloride (Normal Saline IV) 1,000 ml @ 0 mls/hr Q0M ONCE IV Last administered on 03/06/17t 01:11; Start 03/06/17 at 01:15; Stop 03/06/17 at 01:17 ; Status DC Progress Progress Patient had finished 1 L by EMS, and continued to have hypotension with systolic blood pressure 74-84 - additional 1 L normal saline given in the ER CBC - moderate white blood cell elevation with no left shift CMP - significant electrolyte abnormalities consistent with prior episodes of dehydration and orthostatic hypotension, including elevated sodium, elevated chloride, and signs of acidosis. Blood sugar is running 323, elevated EtOH - negative UDS - pending UA and chest x-ray pending After 2 L normal saline, patient's blood pressure remained stable but low at 80/ 53. And patient is significantly somnolent, only to deep painful stimuli. During Ramírez catheterization, patient awakened, blood pressure significantly improved, patient continues to be significantly encephalopathic. Case is discussed with Dr. Adin Zapata, patient will be admitted to the CCU for encephalopathy, acidosis with severe dehydration, and oliguria associated with medication overdoses ELVIE PORTER MD March 06, 2017 01:20
[2017-03-06 01:28] LABS: HCT - HEMATOCRIT 34.6 % (36-46); HGB - HEMOGLOBIN 10.8 GM/DL (12-16); MEAN CORPUSCULAR HGB 27.6 UUG (26-34); MEAN CORPUSCULAR HGB CONC(MCHC 31.2 GM/DL (31-37); MEAN CORPUSCULAR VOLUME 88.5 UM3 (80-100); MEAN PLATELET VOLUME 12.1 UM3 (9.4-12.4); RED BLOOD COUNT 3.91 M/MM3 (4.00-5.20); WBC - WHITE BLOOD COUNT 16.1 T/MM3 (4.5-11.0)
[2017-03-06 01:38] LABS: ALBUMIN 4.7 G/DL (3.5-5.0); ALBUMIN/GLOBULIN RATIO 1.5 RATIO (1.1-2.2); ALKALINE PHOSPHATASE 87 U/L (38-126); ALT (SGPT) 31 U/L (9-52); ANION GAP 20 MEQ/L (5-15); AST (SGOT) 23 U/L (14-36); BUN/CREATININE RATIO 13 RATIO (6-26); CALCIUM 9.6 MG/DL (8.4-10.2); CHLORIDE 111 MEQ/L (98-107); CO2 - CARBON DIOXIDE 16 MEQ/L (22-30); CREATININE 1.2 MG/DL (0.7-1.2); ETHANOL <10 MG/DL (<10); GLOMERULAR FILTRATION RATE 48; GLUCOSE 323 MG/DL (65-110); POTASSIUM 4.3 MEQ/L (3.6-5); SODIUM 147 MEQ/L (134-144); TOTAL PROTEIN 7.9 G/DL (6.3-8.2)
[2017-03-06 01:40] LABS: LYMPHOCYTES # (MANUAL) 3.7 T/MM3 (1-4.8); NEUTROPHILS #(MANUAL)-ABSOLUTE 12.4 T/MM3 (1.8-7.7); TOTAL CELLS COUNTED 100 %
--- NOTE | 2017-03-06 01:42 | NUR ---
COMFORT PT REPORTS SHE USUALLY HAS HER KNEES BENT UP WHEN SHE LAYS ON HER BACK. SAYS SHE HAS "SWAY BACK". SHE STATES HER BACK PAIN IS STILL REALLY BAD EVEN WITH "ALL THE MEDICATIONS I TOOK". PT IS ASLEEP IF NOT STIMULATED TO TALK WITH SON OR STAFF. KNEES ELEVATED ON THE BED TO HELP WITH PT COMFORT. SON REMAINS AT BEDSIDE
[2017-03-06 01:47] LABS: LACTATE - LACTIC ACID 4.8 MMOL/L (0.6-2.2)
[2017-03-06 02:12] LABS: VBG TOTAL CO2 15 MEQ/L
--- NOTE | 2017-03-06 02:20 | NUR ---
STATUS PT ASLEEP, SNORING RESPIRATIONS SAO2 REMAINS AT 97% ON ROOM AIR
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
--- NOTE | 2017-03-06 03:14 | NUR ---
ANDERSON #[id number] FR ANDERSON CATH INSERTED TO DD 10CC ARIANA URINE RETURNED
--- NOTE | 2017-03-06 03:15 | NUR ---
STATUS PT WOKE UP WHILE PT WAS POSITIONED WITH LEGS DOWN AND PILLOW UNDER HER ARM EXPLAINED TO PT WE JUST INSERTED A ANDERSON CATH BECAUSE SHE WAS SO DEEPLY ASLEEP WE WERE NOT ABLE TO WAKE HER UP. PT STARTED ARGUING THAT THE CATH WAS IN BEFORE 0100 WHEN HER SON GOT HERE. PT GOT MAD AT STAFF WHEN TRIED TO ORIENT HER TO TIME AND ACTIVITIES THAT HAVE BEEN DONE.
--- OUTSIDE RECORDS SUMMARY | 2017-03-06 03:25 | XMS REPORT | Continuity of Care Document ---
Author Author [facility] Organization [facility] Address Unknown Phone Unavailable Care Team Providers Care Joiner Apprentice Name Role Phone CALISTA MARSHALL MD Primary Care Physician [phone] Insurance Providers Payer Name Policy Number Subscriber Name Relationship Medicarehumana Gold Hmo [id number] Ellyn Rodríguez 20 Self Advance Directives Directive [...] Latex Adverse Reaction Unknown ANALYPHAXYS Active 11/08/14 [place] Adverse Reaction Intermediate Vomiting Active 11/08/14 Egg Yolk Adverse Reaction Intermediate Active 12/18/10 Immunizations Name Given Type Hx Influenza Vaccination Y 2013 Historical Hx Influenza Vaccination Y 2013 Historical Vital Signs Acute Vital Signs Vital Response Date/Time Temperature (Fahrenheit) 100.4 deg F (96.8 - 99.1) Temperature (Calculated Celsius) 38.37333 degrees C (36.0 - 37.3) Pulse Rate [...] 2012 9:42am Ref lab rpt scanned - [facility]--- 06/10 0845 ---CPEP previously reported as: SENT [...] Has specimen been collected/obtained? Y Urine Specific [place] November 08, 2014 1:20pm 1.020 - Has [...] Report September 06, 2012 8:50am REFERENCE LAB [id number] - HDL Cholesterol Direct July 10, 2012 [...] 2014 12:31pm Name: ELLYN RODRÍGUEZ Unit #: [id number] : 1965 Sex: F Loc / Svc: ED DOS: 11/08/14 Signed Report #: [id number] DIAGNOSTIC IMAGING REPORT TYPE OF EXAM: CHEST, [...] Encounters Encounter Location Date/Time Departed Emergency Room [facility] 11/08/14 10:37am Recent Diagnosis
--- OUTSIDE RECORDS SUMMARY | 2017-03-06 03:27 | XMS REPORT | Continuity of Care Document ---
Author Author [facility] Organization [facility] Address Unknown Phone Unavailable Care Team Providers Care Production Line Assembler Name Role Phone CALISTA MARSHALL MD Primary Care Physician [phone] Insurance Providers Payer Name Policy Number Subscriber Name Relationship Medicarehumana Gold Hmo [id number] Ellyn Farr 20 Self Advance Directives Directive [...] Latex Adverse Reaction Unknown ANALYPHAXYS Active 11/08/14 [place] Adverse Reaction Intermediate Vomiting Active 11/08/14 Egg Yolk Adverse Reaction Intermediate Active 12/18/10 Immunizations Name Given Type Hx Influenza Vaccination Y UNSURE-PATIENT IS CONFUSED Historical Hx Pneumococcal Vaccination Y UNSURE-PATIENT IS CONFUSED Historical Hx Influenza Vaccination Y UNSURE-PATIENT IS CONFUSED Historical Vital Signs Acute Vital Signs Vital Response Date/Time Temperature (Fahrenheit) 97.4 deg F (96.8 - 99.1) Temperature (Calculated Celsius) 36.45366 degrees C (36.0 - 37.3) Temperature Source [...] Method: Jenae Based Assay Performing Laboratory CLIA# [id number] Test Performed by: [place] [address] Construction Inspector: Blayne Nascimento M.D. Platelet Antibody performed at [facility], [address] [place] [address] Hazmat Truck Driver Oleksandr Jeffers MD Anti-Platelet Antibody November 12, [...] H - [place] Panel, Quantitative performed at [facility], [address] [place] [id number] Hazmat Truck Driver Hansel Irwin DO Anti-Nuclear Antibody Interpret November 12, 2014 7:01pm see below - < 100 U/mL: [id number] U/mL: Indeterminate >120 U/mL: Positive Aspartate Amino [...] 286 mg/dL H - Haptoglobin performed at [facility], [address], [place] [address]Kssqdam Director Hansel Irwin, DO Hematocrit November 15, [...] - [place], Quant Add On performed at [facility], [address] [place], [place] Hazmat Truck Driver Hansel Irwin, DO Icterus Index November 15, [...] Report November 09, 2014 7:39pm REFERENCE LAB [id number] - Lactate Dehydrogenase November 11, 2014 8:32am [...] 15, 2014 4:42am 50.3 FL H 36.9-50.2 DIRECTOR OF SCIENCE Antibody November 12, 2014 7:01pm 148 U/mL [...] Has specimen been collected/obtained? Y Urine Specific [place] November 09, 2014 7:00pm 1.020 - Has [...] 2014 12:31pm Name: ELLYN FARR Unit #: [id number] : [id number] Sex: F Loc / Sv: MED DOS: 11/09/14 Signed Report #: [id number] DIAGNOSTIC IMAGING REPORT TYPE OF EXAM: CTA [...] ARMSTRONG MD EMERGENCY DEPT VISIT completed 11/08/14 [id number] ITEM OR SERVICE completed 11/08/14 [id number]"INFUSION, NORMAL SALINE SOLUTION , 1000 CC" completed 11/08/14 [id number]"INFUSION, NORMAL SALINE SOLUTION , 1000 CC" completed 11/08/14 Encounters Encounter Location Date/Time Discharged Inpatient [facility] 11/11/14 1:08pm Departed Emergency Room [facility] 11/08/14 10:37am Recent Diagnosis Bronchitis Pharyngitis Dehydration Diabetes mellitus type 2, uncontrolled Fibromyalgia Hyperosmolality with hypernatremia Morbid obesity with BMI of 40.0-44.9, adult SIRS (systemic inflammatory response syndrome) Wound, open, hip or thigh Hypokalemia Metabolic encephalopathy Metabolic acidosis Protein calorie malnutrition Thrombocytopenia
--- NOTE | 2017-03-06 03:28 | NUR ---
STATUS PT REMAINS MAD AT STAFF UNTIL HER SON COMES INTO THE ROOM AND TELLS HER THAT WHAT WE ARE TELLING HER IS THE TRUTH. SHE CALMS DOWN AND THEN WANTS SOMETHING FOR PAIN. PT CLOSES EYES AND IS BACK ASLEEP QUICKLY.
--- OUTSIDE RECORDS SUMMARY | 2017-03-06 03:28 | XMS REPORT | Continuity of Care Document ---
Author Author [facility] Organization [facility] Address Unknown Phone Unavailable Care Team Providers Care Groundhand Name Role Phone CALISTA MARSHALL MD Primary Care Physician [phone] Insurance Providers Payer Name Policy Number Subscriber Name Relationship Medicarehumana Gold Hmo [id number] Ellyn Rodríguez 20 Self Advance Directives Directive [...] 30 Days 11/27/14 Active Fluticasone Propionate 2 [place] EA NOSTRIL DAILY 30 Days 11/27/14 Active [...] Discharge Date 11/27/14 5:12pm Disposition 04 TO [facility] HOME/FACILITY Instructions/Education Provided DI for Muscle Weakness [...] HERSELF SINCE GETTING SICK AND [facility] [place]. NORMALLY HAS BEEN TAKING HER [...] Latex Adverse Reaction Unknown ANALYPHAXYS Active 11/08/14 [place] Adverse Reaction Intermediate Vomiting Active 11/08/14 Egg Yolk Adverse Reaction Intermediate Active 12/18/10 Immunizations Name Given Type Hx Influenza Vaccination Y FALL 2013 Historical Hx Pneumococcal Vaccination Y OCT 2014 OR SEP 2014 Historical Hx Influenza Vaccination Y FALL 2013 Historical Vital Signs Acute Vital Signs Vital Response Date/Time Temperature (Fahrenheit) 97.4 deg F (96.8 - 99.1) Temperature (Calculated Celsius) 36.97702 degrees C (36.0 - 37.3) Temperature Source [...] performed at [facility], [address],[place] [address] Stunner And Shackler Hansel Irwin DO Anti-Nuclear Antibody Interpret November 12, 2014 7:01pm see below - < 100 U/mL: [id number] U/mL: Indeterminate >120 U/mL: Positive Anti-Platelet Antibody [...] 2012 9:42am Ref lab rpt scanned - [facility]--- 06/10 0845 ---CPEP previously [...] 286 mg/dL H - Haptoglobin performed at [facility], [address], [place] [address]Xxjftsr Director Hansel Irwin, DO Hematocrit November 27, [...] - [place], Quant Add On performed at [facility], [address] [place] [address] Stunner And Shackler Hansel Irwin, DO Icterus Index November 27, [...] Report November 09, 2014 7:39pm REFERENCE LAB [id number] - Lactate Dehydrogenase November 11, 2014 8:32am [...] Method: Jenae Based Assay Performing Laboratory CLIA# [id number] Test Performed by: [place] [address] Water Resource Engineering Specialist: Blayne Nascimento M.D. Platelet Antibody performed at [facility], [address] [place] [address] Stunner And Shackler Oleksandr Jeffers MD Platelet Count November 27, [...] 27, 2014 4:48am 56.6 FL H 36.9-50.2 DITTO MACHINE OPERATOR Antibody November 12, 2014 7:01pm 148 U/mL [...] Has specimen been collected/obtained? Y Urine Specific [place] November 20, 2014 3:15pm 1.025 - Has [...] 2014 12:31pm Name: ELLYN RODRÍGUEZ Unit #: [id number] : [id number] Sex: F Loc / Svc: SRG DOS: 11/20/14 Signed Report #: [id number] DIAGNOSTIC IMAGING REPORT TYPE OF EXAM: KNEE [...] ARMSTRONG MD EMERGENCY DEPT VISIT completed 11/08/14 [id number] ITEM OR SERVICE completed 11/08/14 [id number]"INFUSION, NORMAL SALINE SOLUTION , 1000 CC" completed 11/08/14 [id number]"INFUSION, NORMAL SALINE SOLUTION , 1000 CC" completed 11/08/14 Encounters Encounter Location Date/Time Discharged Inpatient [facility] 11/23/14 5:18pm Discharged Inpatient [facility] 11/11/14 1:08pm Departed Emergency Room [facility] 11/08/14 10:37am Recent Diagnosis Wound, open, hip or thigh Generalized weakness Generalized weakness Falls Type II diabetes mellitus Morbid obesity Depression Fibromyalgia Anemia Acute kidney injury Otalgia of right ear
--- NOTE | 2017-03-06 03:39 | NUR ---
REPORT REPORT CALLED TO INGRID MI IN CCU
[2017-03-06] MEDS ORDERED: 1/2 NS 1,000 ML IV SCH (03:45)
[2017-03-06] MEDS ORDERED: MORPHINE SULFATE 2 MG SYRINGE IV PRN (03:45)
[2017-03-06] MEDS ORDERED: NORMAL SALINE 1,000 ML IV SCH (03:45)
[2017-03-06] MEDS ORDERED: ALBUTEROL INH.SOLN. 2.5mg/3ml (0.083%) Neb. AEROSOL PRN ×2 (03:45)
[2017-03-06] MEDS ORDERED: INSULIN ASPART 100 UNIT/ML SQ PRN (04:00)
[2017-03-06] MEDS ORDERED: DEXTROSE 50% SYRINGE 50ml (Eq. 1 AMP) IV PRN (04:00)
[2017-03-06] MEDS ORDERED: GLUCOSE ORAL GEL 40% 37.5 G TUBE PO PRN (04:00)
--- NOTE | 2017-03-06 04:00 | NUR ---
ADMIT PT TAKEN TO CCU PER CART ESCORTED BY RN FRAN INTACT TO RIGHT HAND PT SLEEPING SOUNDLY
--- NOTE | 2017-03-06 04:00 | NUR ---
Admit Pt admitted to CCU6 at this time via cart from ED. Accompanied by ED RN, Kaur. Pt transferred from cart to bed via slideboard with assist x4. Upon arriving to unit, pt sleeping deeply. Pt awoke during transfer. VSS. Answering questions appropriately, however admits that she is having trouble "thinking" and she's "talking funny."
--- NOTE | 2017-03-06 04:15 | NUR ---
Physician Dr. Zapata assessing pt. She is alert and answering questions appropriately. Witnessed to hit self in face due to frustration as she is unable to think as clearly as she normally would.
--- NOTE | 2017-03-06 04:49 | HPPDOC ---
HPI - Adult Date DATE: 03/06/17 TIME: 04:30 General Chief Complaint: altered History of Present Illness This is a 51 y/o female who apparently has been experiencing back pain unprovoked for the past at least week. She was scheduled next week to see her PcP for further evaluation. The patient presented to the ED earlier today and the workup demonstrated MS back pain. The patient was treated with one dose of IV pain medication and oral meds and ultimately deemed stable for discharge. The ED provider states clearly that the patient was ambulating without limitations at discharge. When the patient returned home she had missed her middaydose of neurontin and muscle relaxer and was due to take her evening dose. The patient decided to take her afternoon and evening medications and then developed weakenss and fatigue. Her son (who lives with her) checked on her and found her decreased responsive. EMS activated and the patient SBP was noted in the 70;s. The pateint was transported back to the ED and the patient did respond to NS boluses. The patient had a metabolic workup done and was found to have a signficant metabolic acidosis (gap). LA was elevated in the 4' s and at this time a CXR was done which was normal. An ABG demonstrated a metabolic acidosis. The patient is to be admitted for further assessment of her altered mental status and her elevated LA. The patient has no evidence to suggest an infectious process with her ROS. Past Medical History Past Medical History orthostatic hypotension DM2 dyslipidemia asthma GERD migraine SANTANA diabetic neuropathy IBS scleroderma morbid obesity Surgical History Patient's Surgical History: GB Tonsils Carpel tunnel shoulder Current Medications Home Meds Reported Medications Lactase (Lactaid) 3,000 Unit Tablet, 3000 UNIT PO PRN 03/05/17 Tizanidine HCl (Tizanidine HCl) 4 Mg Tablet, 8 MG PO TID 03/05/17 Albuterol Sulfate (Albuterol Sulfate) 2.5 Mg/3 Ml Vial.neb, 2.5 MG AEROSOL TID Y for WHEEZING 11/12/16 Ibuprofen (Ibuprofen) 800 Mg Tablet, 800 MG PO Q8H Y for PAIN 11/12/16 Bupropion HCl (Bupropion Xl) 150 Mg Tab.er.24h, 150 MG PO DAILY TAKE WITH 300 MG TO EQUAL 450 MG DAILY 11/12/16 Aspirin (Aspirin) 325 Mg Tablet, 650 MG PO TID 11/12/16 Asenapine Maleate (Saphris) 10 Mg Tab.subl, 10 MG SL HS 11/12/16 Niacin (Niacin ER) 1,000 Mg Tab.er.24h, 1000 MG PO HS 10/21/16 Atorvastatin Calcium (Lipitor) 20 Mg Tablet, 20 MG PO HS 10/21/16 Glipizide (Glipizide) 5 Mg Tablet, 5 MG PO DAILY 07/11/16 Baclofen (Baclofen) 10 Mg Tablet, 5 MG PO TID 07/11/16 [elderberry] No Conflict Check, 230 MG PO BID 03/10/16 Sumatriptan Succinate (Sumatriptan Succinate) 50 Mg Tablet, 50 MG PO QID Y for HEADACHE 02/24/16 Fluticasone/Salmeterol (Advair 100-50 Diskus) 1 Disk W/Dev Inhaler, 1 PUFF INH BID Y for SHORTNESS OF AIR 02/24/16 [place]-3/Dha/Epa/Fish Oil (Fish Oil 1,000 mg Softgel) 1 Each Capsule, 2 TAB PO BID 02/24/16 Pantoprazole Sodium (Pantoprazole Sodium) 20 Mg Tablet.dr, 20 MG PO DAILY 02/24/16 Cholecalciferol (Vitamin D3) (Vitamin D) 400 Unit Capsule, 800 UNIT PO DAILY 02/24/16 Gabapentin (Gabapentin) 600 Mg Tablet, 1200 MG PO TID 09/27/15 Fluticasone Propionate (Fluticasone Prop 50 mcg/actuation Nasal [place]) 120 [place] /16 G [place], 2 SPRAY EA NOSTRIL DAILY, ML 09/27/15 Metformin HCl (Metformin HCl) 1,000 Mg Tablet, 1000 MG PO BIDWM 11/08/14 Bupropion Hcl (Wellbutrin Xl) 300 Mg Tab.sr.24h, 300 MG PO DAILY TAKE WITH 150 MG TO EQUAL 450 MG DAILY 06/17/13 Acetaminophen (Tylenol Arthritis) 650 Mg Tablet, 1300 MG PO Q8H Y for PAIN 11/06/12 Buspirone Hcl (Buspar) 15 Mg Tablet, 15 MG PO BID 11/06/12 Cetirizine Hcl (Zyrtec) 10 Mg Tablet, 10 MG PO DAILY 12/17/10 Topiramate (Topamax) 200 Mg Tablet, 400 MG PO BID 12/17/10 Allergies: Coded Allergies: lovastatin (Verified Allergy, Mild, 03/06/17) STATES THIS IS RELATED TO ASPERGILLUS AND THIS IS SOMETHING LSHE IS ALLERGIC TOO. CAUSES HEAD EDEMA naproxen (Verified Allergy, Mild, ITCHING, 03/06/17) talc (Verified Allergy, Mild, ITCHING, 03/06/17) Bananas (Verified Allergy, Unknown, 03/06/17) diazepam (Verified Allergy, Unknown, HAD TO HAVE ROMAZICON WITH IT, ) oxycodone (Unverified Allergy, Unknown, 03/06/17) strawberry (Verified Adverse Reaction, Intermediate, Vomiting, 03/06/17) hydrocodone bit (Verified Adverse Reaction, Unknown, ITCHING, 03/06/17) latex (Verified Adverse Reaction, Unknown, ANALYPHAXYS, 03/06/17) Uncoded Allergies: Egg Yolk (Adverse Reaction, Intermediate, 12/18/10) Vomiting Family History Family History: GM- BrCA Social History Smoking Status: Never smoker Substance Use Type: does not use Alcohol Intake: none Housing: apartment Household Members: family Current Occupational Status: unemployed, disabled Advance Directives: Yes DPOA for Healthcare Only (Juani, son) Review of Systems All Other Systems All Other Systems: Reviewed (remainder of 10-point ROS Neg.) Comments no headache, no change in vision, no ringing in ears, no sore throat, no neck pain, occasionally cough, non productive, no heart palpitations, no chest pain, mild nausea, mild epigastric abd pain from time to time, no villatoro ein bowel movements, no urine symptoms, no skin rashes, no focal neuro concerns, The back pain is described as low. worse with movement, worse with palpation, no incontinence of bowel and bladder. No reported injury per patient. a 12 point ROS (careful ROS) was negative except for described above. Physical Exam General General Nourishment: well nourished, well developed, obese, apparent age, adult General Body Habitus: well groomed Vital Signs Vital Signs Date Time Temp Pulse Resp B/P Pulse Ox O2 Delivery O2 Flow Rate FiO2 03/06/17 03:45 71 86/51 96 Room Air 03/06/17 03:15 18 03/06/17 00:53 98.1 Height (Feet): 5 Height (Inches): 10.00 Telemetry Rhythm: Sinus Rhythm Eyes Brief: FOUND: EOMI, PERRL, NOT FOUND: other, scleral icterus, trauma Neck Brief: FOUND: midline, NOT FOUND: JVD, nuchal rigidity, other, spasm, tenderness, tracheal deviation Respiratory Brief: FOUND: clear all green, equal bilaterally, NOT FOUND: other , rales, spasm, symmetrical, tenderness, wheezes Cardiovascular (brief) Cardiac Brief: FOUND: regular rate, regular rhythm Capillary Refill: <2 sec Abdomen (brief) Comments obese, non tender to palpation per nursing, bowel sounds presnt Abdomen Comments abdomen is obses, bowel sounds present, no real tender per palpation by nursing Musculoskeletal (brief) Musculoskeletal Brief: NOT FOUND: deformity, extremities move equally, loss of motion, other, spasm, tenderness Integumentary (brief) Integumentary Brief: FOUND: dry, pink, rash, warm Neurologic (brief) Comments no focal deficits Neurologic RN Documented GCS Eye Opening: (4)Spontaneous Verbal: (5)Oriented Motor: (6)Obeys Commands Total: Psychiatric (brief) FOUND: alert, attentive, normal affect, oriented Laboratory Laboratory Tests Test 03/06/17 01:21 03/06/17 01:22 03/06/17 01:57 Turbidity < 20 Sodium Level 147MEQ/L Potassium Level 4.3MEQ/L Chloride Level 111MEQ/L Carbon Dioxide Level 16MEQ/L Anion Gap 20MEQ/L Blood Urea Nitrogen 15.0MG/DL Creatinine 1.2MG/DL Glomerular Filtration Rate Calc 48 BUN/Creatinine Ratio 13RATIO Glucose Level 323MG/DL Calculated Osmolality 295MOSM/KG Calcium Level 9.6MG/DL Total Bilirubin 0.40MG/DL Icterus Index < 2 Aspartate Amino Transf (AST/SGOT) 23U/L Alanine Aminotransferase (ALT/SGPT) 31U/L Alkaline Phosphatase 87U/L Total Protein 7.9G/DL Albumin 4.7G/DL Globulin 3.2G/DL Albumin/Globulin Ratio 1.5RATIO Plasma Lactate 4.8MMOL/L Chemistry Specimen Hemolysis < 15 Alcohol, Quantitative <10MG/DL White Blood Count 16.1T/MM3 Red Blood Count 3.91M/MM3 Hemoglobin 10.8GM/DL Hematocrit 34.6% Mean Corpuscular Volume 88.5UM3 Mean Corpuscular Hemoglobin 27.6UUG Mean Corpuscular Hemoglobin Concent 31.2GM/DL RDW Standard Deviation 47.6FL Platelet Count 354T/MM3 Mean Platelet Volume 12.1UM3 Immature Granulocyte % (Auto) % Neutrophils (%) (Auto) % Lymphocytes (%) (Auto) % Monocytes (%) (Auto) % Eosinophils (%) (Auto) % Basophils (%) (Auto) % Absolute Immature Granulocyte (auto T/MM3 Absolute Neutrophils (auto) T/MM3 Absolute Lymphocytes (auto) T/MM3 Absolute Monocytes (auto) T/MM3 Absolute Eosinophils (auto) T/MM3 Absolute Basophils (auto) T/MM3 Neutrophils % (Manual) 77.0% Lymphocytes % (Manual) 23.0% Absolute Neutrophils (Manual) 12.4T/MM3 Lymphocytes # (Manual) 3.7T/MM3 Red Cell Morphology Comment Normal Procalcitonin 0.12NG/ML Venous Blood pH 7.245 Venous Blood Partial Pressure CO2 33.0MMHG Venous Blood Partial Pressure O2 44MMHG Venous Blood HCO3 14MEQ/L Venous Blood Total Carbon Dioxide 15MEQ/L Venous Blood Oxygen Saturation 73.0% Venous Blood Base Excess -12.0MMOL/L Oxygen Delivery Method (LAB) Room air Blood Gas Oxygen Liter Flow Blood Gas Oxygen Percent Given Radiology CXR negative Assessment & Plan Assessment 1. metabolic encephalopathy acute POA: clearly related to doubling of her medications. for now will hold meds and hydrate and monitor mental status, when returns to baseline consider restarting her home medications. No indication for neuroimaging at this time 2. gap metabolic acidosis acute POA: possible related to dehydration. agressive hydration with total 3 l saline and will repeat labs to assess response. Obviously must keep in mind the possibility of infection. see below 3. severe sepsis acute POA: currently the pateints's vitals and elevated LA would suggest the possibility of severe sepsis. A review of system would not support an obvious source of infection. What is concerning is the patient has back pain which is new. no described injury. If labs do not normalize easily would proceed to imagine L spone to exclue an occult injury. Patient denies any recent proceures on her back (epidural etc). No source in mouth, HEENT benign, neck issupple, no suggestion of delivery room clerk component, LUngs are clear and cXR benign, abd is obses, no real tenderness, no nauea or vomting, no rashes, no MS findings. 4. DM2 chronic POA: correctional plan for now 5. CKD 3: fluids and repeat 6. morbidobesity MBI 45 chronic POA: to be aware of 7. hypotension acute POA: patient states she runs in the low 100's typically. possible dehydration. obviously with elevated LA must always be concerned about ongoing process. patient resounded to fluids and at this time will monitor in the ICU setting. overall this pateint primary concerning event was over medicating herself which will respond to fluids. What is more concerning is the metabolic acidosis. Not clear how acute this is but will agressively evaluati. DVT Prophylaxis: SCD'S, SQ Heparin Code Status Full Code Hospital Course Summary Disclaimer The hospital course summary below is not to be considered part of the above Progress Note. NORAH SANTANA MD March 06, 2017 04:35
[2017-03-06] MEDS: PANTOPRAZOLE 20 MG TABLET PO SCH (07:30)
[2017-03-06 07:35] LABS: AMPHETAMINE SCREEN,URINE NEGATIVE; BARBITURATE SCREEN,URINE NEGATIVE; BENZODIAZEPINES SCREEN,URINE NEGATIVE; BLOOD, URINE NEGATIVE (NEGATIVE); CANNABINOID SCREEN,URINE NEGATIVE; COCAINE SCREEN,URINE NEGATIVE; COLOR,URINE YELLOW (YELLOW); LEUKOCYTE ESTERASE ,URINE NEGATIVE (NEGATIVE); METHADONE SCREEN, URINE NEGATIVE; METHAMPHETAMINE SCREEN, URINE NEGATIVE; NITRITE,URINE NEGATIVE (NEGATIVE); OPIATE SCREEN,URINE POSITIVE; PHENCYCLIDINE SCREEN,URINE NEGATIVE; TRICYCLIC ANTIDEPRESSANT,URINE NEGATIVE; UROBILINOGEN,URINE 0.2 EU/DL (NORMAL)
[2017-03-06 07:37] LABS: BASOPHILS # (AUTO) 0.1 T/MM3 (0-0.2); BASOPHILS % (AUTO) 0.5 % (0-2); EOSINOPHILS # (AUTO) 0.2 T/MM3 (0-0.5); HCT - HEMATOCRIT 29.3 % (36-46); HGB - HEMOGLOBIN 9.2 GM/DL (12-16); IMMATURE GRANULOCYTE # (AUTO) 0.02 T/MM3 (0.00-0.03); IMMATURE GRANULOCYTE % (AUTO) 0.2 % (0.0-0.5); LYMPHOCYTES # (AUTO) 4.9 T/MM3 (1-4.8); MEAN CORPUSCULAR HGB 27.5 UUG (26-34); MEAN CORPUSCULAR HGB CONC(MCHC 31.4 GM/DL (31-37); MEAN CORPUSCULAR VOLUME 87.7 UM3 (80-100); MEAN PLATELET VOLUME 11.6 UM3 (9.4-12.4); MONOCYTES # (AUTO) 0.6 T/MM3 (0-0.8); MONOCYTES % (AUTO) 6.3 % (0-9.0); NEUTROPHILS #(AUTO)-ABSOLUTE 4.4 T/MM3 (1.8-7.7); RED BLOOD COUNT 3.34 M/MM3 (4.00-5.20); WBC - WHITE BLOOD COUNT 10.1 T/MM3 (4.5-11.0)
[2017-03-06 07:45] LABS: ANION GAP 14 MEQ/L (5-15); BUN/CREATININE RATIO 15 RATIO (6-26); CALCIUM 8.3 MG/DL (8.4-10.2); CHLORIDE 117 MEQ/L (98-107); CO2 - CARBON DIOXIDE 17 MEQ/L (22-30); CREATININE 1.1 MG/DL (0.7-1.2); GLOMERULAR FILTRATION RATE 53; GLUCOSE 194 MG/DL (65-110); SODIUM 148 MEQ/L (134-144)
[2017-03-06] MEDS ORDERED: WATER FOR INJECTION IV SCH (07:45)
[2017-03-06] MEDS ORDERED: SODIUM BICARBONATE IV SCH (07:45)
[2017-03-06 07:46] LABS: LACTATE - LACTIC ACID 2.2 MMOL/L (0.6-2.2)
[2017-03-06] MEDS ORDERED: HEPARIN SUB-Q 5,000 unit/0.5ml vial SQ SCH (09:00)
[2017-03-06] MEDS: WATER FOR INJECTION IV SCH ×2 (09:17→18:00)
[2017-03-06] MEDS: SODIUM BICARBONATE IV SCH ×2 (09:17→18:00)
--- NOTE | 2017-03-06 09:27 | PNPDOC ---
Subjective Date DATE: 03/06/17 TIME: 09:03 Subjective Remains somnolent, does not awaken for me. Pupils equal and reactive. Sleeping comfortably since arrival, 02 sats stable. BP improved after IVF boluses. No fevers. Objective Vital Signs Vital signs Vital Signs Date Time Temp Pulse Resp B/P Pulse Ox O2 Delivery O2 Flow Rate FiO2 03/06/17 08:00 97.2 74 12 99/63 97 Room Air Telemetry Rhythm: Sinus Rhythm Height (Feet): 5 Height (Inches): 10.00 Weight (Kilograms): 142.400 General Comments Obese, somnolent Eyes (Brief) Eyes: FOUND: PERRL, NOT FOUND: scleral icterus ENMT (Brief) ENMT: FOUND: mucosa moist, NOT FOUND: pharnyx erythema Neck (Brief) Neck: NOT FOUND: JVD, adenopathy, nuchal rigidity Respiratory (Brief) Respiratory: FOUND: clear all green, equal bilaterally, NOT FOUND: rales, wheezes Cardiovascular (Brief) Cardiac: FOUND: regular rate, regular rhythm Abdomen (Brief) Abdominal: FOUND: BS normo active x4, soft, NOT FOUND: distended (Brief) Comments francis intact and draining yellow urine Extremities (Brief) Extremity : Extremity Finding: NOT FOUND: clubbing, cyanosis, deformity Integumentary (Brief) Integumentary: FOUND: dry, warm, NOT FOUND: rash Laboratory Laboratory Laboratory Tests 03/06/17 01:21 03/06/17 07:17 Laboratory Tests 03/06/17 01:22 03/06/17 07:16 Microbiology Microbiology No micro studies have been sent. Radiology CXR reviewed by me with no edema, infiltrates or consolidations. Difficult to assess due to obesity but no effusions noted. Sepsis Diagnostic Criteria Sepsis Confirmed/Suspected Infection: No SIRS Criteria: Acute mental status chg Severe Sepsis SBP <90 or MAP <65, Lactate >=2.0 mg/dL Septic Shock Septic Shock Criteria: Lactate >4 Additional Information Comments Suspect hypoperfusion/hypotension due to medication overdose and subsequent lactate elevation; no other indications of infection currently, will assess UA however. + c/o back pain previously; no nuchal rigidity or point tenderness on exam Assessment & Plan Problems: (1) Acute hypernatremia Status: Acute Assessment & Plan: Due to lack of free water intake; POA (2) Metabolic acidosis with increased anion gap and accumulation of organic acids Status: Acute Assessment & Plan: Both anion gap and non-gap acidosis, presume acute on chronic, ? metformin chronically + lactic acid; pH 7.24, bicarb 14, PCO2 33 at admission (3) SIRS (systemic inflammatory response syndrome) Status: Acute Assessment & Plan: + leukocytosis with elevated lactic acid and hypotension, no evidence of infectious etiology thus far, acute change between visits and suspect due to med ingestions; POA, UA pending, CXR unremarkable (4) Diabetes mellitus type 2, uncontrolled Status: Chronic Qualifiers: Diabetes mellitus complication status: with kidney complications Chronic kidney disease stage: stage 2 (mild) (5) Morbid obesity Status: Chronic Qualifiers: Obesity type: due to excess calories Qualified Codes: E66.01 - Morbid ( severe) obesity due to excess calories (6) Hypotension Status: Acute Assessment & Plan: Presumably due to polypharmacy, monitoring for infectious causes as well (7) Metabolic encephalopathy Status: Acute Assessment & Plan: Likely secondary to polypharmacy and unintentional overdose on multiple sedating medications; POA Assessment Assessment as above; H&P reviewed from admission as well as ED visit earlier in the day. No labs done until second presentation so unable to compare, but thought to have MSK back pain that improved with pain medications. Patient then went home from the ED but took double doses of several sedating meds (baclofen, high dose gapabentin primarily and became somnolent and hypotensive. Previously vitals were normal. Remains somnolent this morning, has only been here a few hours. BP has improved with IVF administration. Plan: Stop 1/2NS and start bicarb 150 meq/L at 100 ml/hour to correct acidosis Hold all po medications; may need to be off of metformin due to risk of worsening acidosis in the future Monitor blood sugars intermittently until more alert, will use correction scale insulin Repeat labs pending and will assess when resulted Assess UA to ensure no evidence of infection If not improving will pursue CT of the head and spine due to back pain and slight risk of epidural abscess No evidence of meningitis with this presentation; no nuchal rigidity, was normal and coherent prior to taking meds yesterday Lovenox for DVT prophylaxis DVT Prophylaxis: Lovenox Code Status Full Code Hospital Course Summary Disclaimer The hospital course summary below is not to be considered part of the above Progress Note. VALLIANT,DARIO M MD March 06, 2017 09:08
--- NOTE | 2017-03-06 09:36 | DI ---
Indication: ITS.REASON: possible sepsis PROCEDURE: CHEST 1 VIEW: Encounter: Initial Comparison: November 12, 2016 FINDINGS: The lungs are clear. There is no abnormal airspace opacity, pleural effusion or pneumothorax identified. The heart size, pulmonary vasculature and mediastinum are within normal limits. No significant skeletal abnormality is seen. IMPRESSION: No acute cardiopulmonary abnormality. .
[2017-03-06] MEDS ORDERED: FLUTICASONE/SALMETEROL 100/50 DISK INHALER ORAL INH PRN (11:00)
[2017-03-06] MEDS: TOPIRAMATE 100 MG TABLET PO SCH ×2 (11:28→21:41)
[2017-03-06] MEDS: FLUTICASONE NASAL SPRAY 50 MCG EA NOSTRIL SCH (11:29)
[2017-03-06] MEDS: CETIRIZINE 10 MG TABLET PO SCH (11:29)
[2017-03-06 13:59] LABS: LACTATE - LACTIC ACID 2.4 MMOL/L (0.6-2.2)
[2017-03-06 14:00] LABS: ANION GAP 18 MEQ/L (5-15); BUN/CREATININE RATIO 13 RATIO (6-26); CALCIUM 9.1 MG/DL (8.4-10.2); CHLORIDE 112 MEQ/L (98-107); CO2 - CARBON DIOXIDE 20 MEQ/L (22-30); CREATININE 0.9 MG/DL (0.7-1.2); GLOMERULAR FILTRATION RATE 67; GLUCOSE 235 MG/DL (65-110); POTASSIUM 3.9 MEQ/L (3.6-5); SODIUM 150 MEQ/L (134-144)
[2017-03-06] MEDS: ASPIRIN 325 MG TABLET PO SCH ×2 (14:13→21:41)
[2017-03-06] MEDS: ENOXAPARIN 40 MG/0.4 ML INJECTION SQ SCH (17:00)
[2017-03-06] MEDS: ACETAMINOPHEN SR 650 MG TABLET PO PRN (17:18)
[2017-03-06] MEDS: INSULIN ASPART 100 UNIT/ML SQ PRN ×2 (17:59→21:21)
--- NOTE | 2017-03-06 18:00 | NUR ---
SUMMARY Patient slept soundly until 1000, then awake and concerned about pain meds, etc. Appetite good. No nausea. CT done per orders. Patient able to amb w/ standby assist and use of cane. Freq c/o discomfort, francis, back, etc. Tylenol Arthritis given for discomfort. Since being awake at 1000, has continued to be alert and approp. Long conversations and freq requests. Up to BR and pt did have BM. Bp no longer low.
[2017-03-06] MEDS ORDERED: GABAPENTIN 300 MG CAPSULE PO ONE (20:15)
[2017-03-06 20:48] LABS: LACTATE - LACTIC ACID 1.6 MMOL/L (0.6-2.2)
[2017-03-06 20:49] LABS: ANION GAP 19 MEQ/L (5-15); BUN/CREATININE RATIO 14 RATIO (6-26); CALCIUM 9.1 MG/DL (8.4-10.2); CHLORIDE 107 MEQ/L (98-107); CO2 - CARBON DIOXIDE 23 MEQ/L (22-30); CREATININE 0.8 MG/DL (0.7-1.2); GLOMERULAR FILTRATION RATE 76; GLUCOSE 192 MG/DL (65-110); POTASSIUM 3.6 MEQ/L (3.6-5); SODIUM 149 MEQ/L (134-144)
--- NOTE | 2017-03-06 21:35 | NUR ---
IVF IVF stopped at this time per orders from Dr Balbuena.
--- NOTE | 2017-03-06 21:40 | NUR ---
Ambulation Pt ambulates in hallways at this time. Pt ambulates with walker and gaitbelt, assist of 1. Pt doesn't complain of any pain while ambulating.
[2017-03-06] MEDS ORDERED: HYDROMORPHONE 2mg/ml INJECTION IV ONE (21:45)
[2017-03-06] MEDS ORDERED: ATORVASTATIN 20 MG TABLET PO SCH (22:00)
--- NOTE | 2017-03-06 22:10 | NUR ---
Pain PRN Dilaudid admin for lower back pain and neuropathy pain. Pt states she isn't allergic to Dilaudid. Will monitor.
--- NOTE | 2017-03-06 22:45 | NUR ---
Pain Reassess Pt states pain is now 2/10 (down from 5/10) after Dilaudid admin.
[2017-03-06] MEDS: ONDANSETRON 4mg/2ml INJECTION IV PRN (23:20)
--- NOTE | 2017-03-06 23:20 | NUR ---
Zofran Pt has c/o feeling nauseated throughout gurinder, prn Zofran offered earlier but pt denies earlier. Now pt requests Zofran . PRN Zofran admin. Pt has no emesis at this time.
[2017-03-06] MEDS ORDERED: HYDROMORPHONE 2mg/ml INJECTION IV PRN (23:45)
[2017-03-07] VITALS (23 sets, daily range): BP systolic 91–197; BP diastolic 51–112; PULSE 67–103; RESP 10–30; TEMP 97.2–99.1; O2SAT 80–99
[2017-03-07] MEDS ORDERED: PROCHLORPERAZINE 10mg/2ml INJECTION IV ONE (00:45)
--- NOTE | 2017-03-07 00:53 | NUR ---
Compazine Pt c/o hiccups and they are making her nauseated. One time dose of Compazine admin per orders from Dr Balbuena.
--- NOTE | 2017-03-07 01:19 | NUR ---
Pain Pt c/o /10 pain in left foot. PRN Dilaudid admin per pt request.
--- NOTE | 2017-03-07 01:19 | NUR ---
Compazine reassess pt states she no longer nauseated, nor does she notice hiccups anymore.
--- NOTE | 2017-03-07 01:25 | NUR ---
O2 O2 noted to be staying in 80's after Dilaudid admin. Pt awakens easily. Pt encouraged to take deep breaths. Pt O2 sats come up to low 90's, but then drops back to 80's. O2 placed at 1 liter and O2 sats come up to 90's and stay in 90's.
[2017-03-07] MEDS ORDERED: HYDROMORPHONE 2mg/ml INJECTION IV PRN (02:45)
[2017-03-07] MEDS: ACETAMINOPHEN SR 650 MG TABLET PO PRN (03:50)
--- NOTE | 2017-03-07 03:50 | NUR ---
Pain Pt c/o 9/10 pain in bilat hands and feet and lower back. PRN Tylenol offered and pt accepts.
[2017-03-07 04:25] LABS: BASOPHILS # (AUTO) 0.1 T/MM3 (0-0.2); BASOPHILS % (AUTO) 0.6 % (0-2); EOSINOPHILS # (AUTO) 0.3 T/MM3 (0-0.5); EOSINOPHILS % (AUTO) 2.9 % (0-4); HGB - HEMOGLOBIN 10.7 GM/DL (12-16); IMMATURE GRANULOCYTE # (AUTO) 0.01 T/MM3 (0.00-0.03); IMMATURE GRANULOCYTE % (AUTO) 0.1 % (0.0-0.5); LYMPHOCYTES # (AUTO) 4.4 T/MM3 (1-4.8); LYMPHOCYTES % (AUTO) 48.2 % (23-45); MEAN CORPUSCULAR HGB 27.4 UUG (26-34); MEAN CORPUSCULAR HGB CONC(MCHC 31.5 GM/DL (31-37); MEAN PLATELET VOLUME 11.1 UM3 (9.4-12.4); MONOCYTES # (AUTO) 0.6 T/MM3 (0-0.8); MONOCYTES % (AUTO) 7.1 % (0-9.0); NEUTROPHILS #(AUTO)-ABSOLUTE 3.7 T/MM3 (1.8-7.7); NEUTROPHILS % (AUTO) 41.1 % (33-66); RED BLOOD COUNT 3.91 M/MM3 (4.00-5.20); WBC - WHITE BLOOD COUNT 9.1 T/MM3 (4.5-11.0)
[2017-03-07 04:32] LABS: LACTATE - LACTIC ACID 1.2 MMOL/L (0.6-2.2)
[2017-03-07 04:35] LABS: ALBUMIN 4.4 G/DL (3.5-5.0); ANION GAP 15 MEQ/L (5-15); BUN/CREATININE RATIO 11 RATIO (6-26); CHLORIDE 107 MEQ/L (98-107); CO2 - CARBON DIOXIDE 26 MEQ/L (22-30); CREATININE 0.8 MG/DL (0.7-1.2); GLOMERULAR FILTRATION RATE 76; GLUCOSE 179 MG/DL (65-110); PHOSPHORUS 4.3 MG/DL (2.5-4.5); POTASSIUM 3.6 MEQ/L (3.6-5); SODIUM 148 MEQ/L (134-144)
--- NOTE | 2017-03-07 05:00 | NUR ---
Pain Reassess Pt noted to be resting quietly in bed with eyes closed, even breathing and snoring. Will continue to monitor.
[2017-03-07] MEDS: INSULIN ASPART 100 UNIT/ML SQ PRN ×3 (06:18→18:49)
[2017-03-07] MEDS: PANTOPRAZOLE 20 MG TABLET PO SCH (06:22)
--- NOTE | 2017-03-07 06:27 | NUR ---
Pain Pt awakens and is crying out, states pain is 10/10 in hands, feet, lower back. PRN Dilaudid offered and pt accepts. Pt states she feels nauseated when she is in pain. Discussed Zofran, but decision made to take pain med now and Zofran if nausea doesn't subside.
[2017-03-07] MEDS: ONDANSETRON 4mg/2ml INJECTION IV PRN ×2 (07:00→11:15)
[2017-03-07] MEDS: TOPIRAMATE 100 MG TABLET PO SCH (07:40)
--- NOTE | 2017-03-07 08:18 | DI ---
Indication: ITS.REASON: acute and severe pain PROCEDURE: CT THORACIC SPINE W/O CONTRAST: Encounter: Initial Comparison: None: Technique: Axial noncontrast CT imaging of the thoracic spine was performed with coronal and sagittal two-dimensional reformats. Automated Exposure Control and Iterative Reconstruction dose reducing techniques were utilized. FINDINGS: Alignment of the thoracic spine shows mild scoliosis. There are minimal, age appropriate, degenerative changes within the intervertebral disk and facet joints in the thoracic spine. No fractures are evident in the thoracic spine. The vertebral bodies and facet joints are normally aligned. No severe central canal or neural foraminal stenosis appreciated. Calcified disk osteophyte complex noted at the T1-T2 level causing mild central canal narrowing there is an additional calcified disk osteophyte complex at the T12-L1 level causing mild central canal narrowing. The paraspinal soft tissues and central spinal canal appear unremarkable. IMPRESSION: No acute osseous abnormality. There is a preliminary report by virtual radiologic. .
--- NOTE | 2017-03-07 08:20 | DI ---
Indication: ITS.REASON: acute and severe pain, hypotension PROCEDURE: CT LUMBAR SPINE W/O CONTRAST: Encounter: Initial Comparison: None Technique: Axial noncontrast CT imaging of the lumbar spine was performed with coronal and sagittal two-dimensional reformats. Automated Exposure Control and Iterative Reconstruction dose reducing techniques were utilized. FINDINGS: The alignment of the lumbar spine is normal for the patient's age. No fractures or traumatic subluxation of the lumbar spine is evident. The facet joints are well aligned with preservation of the intervertebral disk and facet joints. There are age appropriate degenerative changes within the intervertebral disks and facet joints in the lower lumbar region. Central calcified disk osteophyte at T12-L1 causing mild central canal narrowing. Calcified disk protrusion at L4-L5 causing severe central canal stenosis and narrowing of the right lateral recess. Mild right neural foraminal narrowing at L5-S1. Severe right neural foraminal stenosis at L3-L4 due to a right lateral and foraminal disk protrusion. Mild central canal narrowing also at L3-L4.. The paraspinal soft tissues and spinal canal are otherwise unremarkable in appearance. IMPRESSION: 1. No evidence for acute osseous abnormality of the lumbar spine. 2. Central canal and right-sided neural foraminal stenosis, worst at L3-L4. There is a preliminary report by virtual radiologic. .
[2017-03-07] MEDS ORDERED: BuPROPion XL (24 HR) 300 MG TABLET PO SCH (09:00)
[2017-03-07] MEDS ORDERED: BuPROPion XL (24 HR) 150 MG TABLET PO SCH (09:00)
[2017-03-07] MEDS ORDERED: FLUCONAZOLE 150 MG TABLET PO ONE (09:45)
[2017-03-07] MEDS: ASPIRIN 325 MG TABLET PO SCH (09:52)
[2017-03-07] MEDS: CETIRIZINE 10 MG TABLET PO SCH (09:52)
[2017-03-07] MEDS: FLUTICASONE NASAL SPRAY 50 MCG EA NOSTRIL SCH (09:57)
[2017-03-07] MEDS: ENOXAPARIN 40 MG/0.4 ML INJECTION SQ SCH (09:59)
[2017-03-07] MEDS: GABAPENTIN 600 MG TABLET PO SCH ×2 (10:37→18:47)
[2017-03-07] MEDS: TIZANIDINE 4 MG TABLET PO SCH ×2 (10:37→18:47)
--- NOTE | 2017-03-07 11:15 | NUR ---
STATUS MIGRAINE PAIN MOSTLY RELIEVED. WAS ABLE TO EAT BREAKFAST, THEN NAUSEA RETURNED . ZOFRAN 4 MG IVP SLOWLY GIVEN AT THIS TIME. ANDERSON CATH REMOVED.
--- NOTE | 2017-03-07 12:30 | NUR ---
CARDIAC BP ELEVATED. DR OTT NOTIFIED, METOPROLOL PO ORDERED.
--- NOTE | 2017-03-07 14:00 | NUR ---
STATUS BP STABLE, 99/69. NO C/O DISCOMFORT OR NAUSEA THIS AFTERNOON. UP IN RECLINER, HAS AMB IN [facility], [facility].
--- NOTE | 2017-03-07 14:52 | NUR ---
CM CM IN TO VISIT PT. CM EXPLAINED ROLE AND PROVIDED CONTACT INFORMATION. PT DENIES NEEDS AND IS AWARE TO CALL CM SHOULD NEEDS ARISE.
--- NOTE | 2017-03-07 19:46 | DSPDOC ---
General Date Date DATE: 03/07/17 TIME: 19:35 Attending Physician Lois Serna MD Admitting Physician Lois Serna MD Consulting Physician Admitting Diagnosis encephalopathy Discharge Diagnosis Metabolic encephalopathy, unintentional overdose involving poly pharmaceutical medicines, chronic pain, morbid obesity Procedures Laboratory Tests 03/06/17 01:22 03/06/17 07:16 03/07/17 04:12 Laboratory Laboratory Tests Test 03/06/17 10:20 03/06/17 13:41 03/06/17 17:26 03/06/17 20:32 Glucometer 215mg/dL (65-110) 171mg/dL (65-110) Turbidity < 20 (0-20) < 20 (0-20) Sodium Level 150MEQ/L (134-144) 149MEQ/L (134-144) Potassium Level 3.9MEQ/L (3.6-5) 3.6MEQ/L (3.6-5) Chloride Level 112MEQ/L (98-107) 107MEQ/L (98-107) Carbon Dioxide Level 20MEQ/L (22-30) 23MEQ/L (22-30) Anion Gap 18MEQ/L (5-15) 19MEQ/L (5-15) Blood Urea Nitrogen 12.0MG/DL (7-17) 11.0MG/DL (7-17) Creatinine 0.9MG/DL (0.7-1.2) 0.8MG/DL (0.7-1.2) Glomerular Filtration Rate Calc 67 76 BUN/Creatinine Ratio 13RATIO (6-26) 14RATIO (6-26) Glucose Level 235MG/DL (65-110) 192MG/DL (65-110) Calculated Osmolality 296MOSM/KG (261-280) 290MOSM/KG (261-280) Calcium Level 9.1MG/DL (8.4-10.2) 9.1MG/DL (8.4-10.2) Icterus Index < 2 (0-7) < 2 (0-7) Plasma Lactate 2.4MMOL/L (0.6-2.2) 1.6MMOL/L (0.6-2.2) Chemistry Specimen Hemolysis < 15 (0-25) 17 (0-25) Test 03/06/17 21:10 03/07/17 04:12 03/07/17 06:06 03/07/17 12:01 Glucometer 176mg/dL (65-110) 181mg/dL (65-110) 278mg/dL (65-110) White Blood Count 9.1T/MM3 (4.5-11.0) Red Blood Count 3.91M/MM3 (4.00-5.20) Hemoglobin 10.7GM/DL (12-16) Hematocrit 34.0% (36-46) Mean Corpuscular Volume 87.0UM3 (80-100) Mean Corpuscular Hemoglobin 27.4UUG (26-34) Mean Corpuscular Hemoglobin Concent 31.5GM/DL (31-37) RDW Standard Deviation 45.9FL (36.9-50.2) Platelet Count 268T/MM3 (130-400) Mean Platelet Volume 11.1UM3 (9.4-12.4) Immature Granulocyte % (Auto) 0.1% (0.0-0.5) Neutrophils (%) (Auto) 41.1% (33-66) Lymphocytes (%) (Auto) 48.2% (23-45) Monocytes (%) (Auto) 7.1% (0-9.0) Eosinophils (%) (Auto) 2.9% (0-4) Basophils (%) (Auto) 0.6% (0-2) Absolute Immature Granulocyte (auto 0.01T/MM3 (0.00-0.03) Absolute Neutrophils (auto) 3.7T/MM3 (1.8-7.7) Absolute Lymphocytes (auto) 4.4T/MM3 (1-4.8) Absolute Monocytes (auto) 0.6T/MM3 (0-0.8) Absolute Eosinophils (auto) 0.3T/MM3 (0-0.5) Absolute Basophils (auto) 0.1T/MM3 (0-0.2) Turbidity < 20 (0-20) Sodium Level 148MEQ/L (134-144) Potassium Level 3.6MEQ/L (3.6-5) Chloride Level 107MEQ/L (98-107) Carbon Dioxide Level 26MEQ/L (22-30) Anion Gap 15MEQ/L (5-15) Blood Urea Nitrogen 9.0MG/DL (7-17) Creatinine 0.8MG/DL (0.7-1.2) Glomerular Filtration Rate Calc 76 BUN/Creatinine Ratio 11RATIO (6-26) Glucose Level 179MG/DL (65-110) Calculated Osmolality 287MOSM/KG (261-280) Calcium Level 9.0MG/DL (8.4-10.2) Phosphorus Level 4.3MG/DL (2.5-4.5) Icterus Index < 2 (0-7) Albumin 4.4G/DL (3.5-5.0) Plasma Lactate 1.2MMOL/L (0.6-2.2) Chemistry Specimen Hemolysis < 15 (0-25) Test 03/07/17 18:15 Glucometer 216mg/dL (65-110) Radiology CT of thoracic and lumbar spine shows and L3 L4 stenosis with foraminal narrowing History of Present Illness This is a 51 y/o female who apparently has been experiencing back pain unprovoked for the past at least week. She was scheduled next week to see her PcP for further evaluation. The patient presented to the ED earlier today and the workup demonstrated MS back pain. The patient was treated with one dose of IV pain medication and oral meds and ultimately deemed stable for discharge. The ED provider states clearly that the patient was ambulating without limitations at discharge. When the patient returned home she had missed her middaydose of neurontin and muscle relaxer and was due to take her evening dose. The patient decided to take her afternoon and evening medications and then developed weakenss and fatigue. Her son (who lives with her) checked on her and found her decreased responsive. EMS activated and the patient SBP was noted in the 70;s. The pateint was transported back to the ED and the patient did respond to NS boluses. The patient had a metabolic workup done and was found to have a signficant metabolic acidosis (gap). LA was elevated in the 4' s and at this time a CXR was done which was normal. An ABG demonstrated a metabolic acidosis. The patient is to be admitted for further assessment of her altered mental status and her elevated LA. The patient has no evidence to suggest an infectious process with her ROS. Objective Vital Signs Vital signs Intake and Output 03/07/17 07:00 Intake Total 2425.0 ml Output Total 5495.0 ml Balance -3070.0 ml Intake Oral 480.0 ml IV Total 1945.0 ml Output Urine Total 5495 ml Stool Total 0 ml Telemetry Rhythm: Sinus Rhythm Height (Feet): 5 Height (Inches): 10.00 Weight (Kilograms): 142.400 General Comments Obese, somnolent Eyes (Brief) Eyes: FOUND: PERRL, NOT FOUND: scleral icterus ENMT (Brief) ENMT: FOUND: mucosa moist, NOT FOUND: pharnyx erythema Neck (Brief) Neck: NOT FOUND: JVD, adenopathy, nuchal rigidity Respiratory (Brief) Respiratory: FOUND: clear all green, equal bilaterally, NOT FOUND: rales, wheezes Cardiovascular (Brief) Cardiac: FOUND: regular rate, regular rhythm Abdomen (Brief) Abdominal: FOUND: BS normo active x4, soft, NOT FOUND: distended (Brief) Comments francis intact and draining yellow urine Extremities (Brief) Extremity : Extremity Finding: NOT FOUND: clubbing, cyanosis, deformity Integumentary (Brief) Integumentary: FOUND: dry, warm, NOT FOUND: rash Hospital Course Mrs. Phelps is morbidly obese 52-year-old female who is not on any narcotics at home but with a diagnosis of "fibromyalgia"is on multiple appropriate chronic pain medications for her chronic condition. She had come into the ER with worsening back pain and received a moderate dose of narcotics then returned home and doubled up on her medicines at home. She was found in a state of respiratory hypoxia by her and brought back into the emergency room by ambulance. Lab work revealed acute acidosis and otherwise she was functionally intact. She was placed on supplemental oxygen and given enough time for the medications to wear off she roused rather abruptly in the ICU after approximately 24 hours. By the 2nd morning should functionally cleared had fully removed and was able to return home without incident. Dr. cuadra and myself have discussed the need for not overusing her home medications as she does appear to be very significantly responsive to medications given in hospital. She appears to be rather anxious, I did not attempt to drastically reduce her home medications for her but instead urged her to follow-up with her primary care physician and to take steps to reduce her rather long list of chronic medications. Both Dr. cuadra and myself have urged her to lose weight and attempt exercise on a daily basis. If a 30 pound weight loss is not significantly improving to her overall status and back pain I would urge her to follow-up with spinal orthopedics or neurosurgery Problems: (1) Acute hypernatremia Status: Resolved Assessment & Plan: Due to lack of free water intake; POA (2) Metabolic acidosis with increased anion gap and accumulation of organic acids Status: Resolved Assessment & Plan: Both anion gap and non-gap acidosis, presume acute on chronic, ? metformin chronically + lactic acid; pH 7.24, bicarb 14, PCO2 33 at admission (3) SIRS (systemic inflammatory response syndrome) Status: Resolved Assessment & Plan: + leukocytosis with elevated lactic acid and hypotension, no evidence of infectious etiology thus far, acute change between visits and suspect due to med ingestions; POA, UA pending, CXR unremarkable (4) Diabetes mellitus type 2, uncontrolled Status: Chronic (5) Morbid obesity Status: Chronic (6) Hypotension Status: Resolved Assessment & Plan: Presumably due to polypharmacy, monitoring for infectious causes as well (7) Metabolic encephalopathy Status: Resolved Assessment & Plan: Likely secondary to polypharmacy and unintentional overdose on multiple sedating medications; POA Code Status Full Code Home Meds Reported Medications Lactase (Lactaid) 3,000 Unit Tablet, 3000 UNIT PO PRN 03/05/17 Tizanidine HCl (Tizanidine HCl) 4 Mg Tablet, 8 MG PO TID 03/05/17 Albuterol Sulfate (Albuterol Sulfate) 2.5 Mg/3 Ml Vial.neb, 2.5 MG AEROSOL TID Y for WHEEZING 11/12/16 Ibuprofen (Ibuprofen) 800 Mg Tablet, 800 MG PO Q8H Y for PAIN 11/12/16 Bupropion HCl (Bupropion Xl) 150 Mg Tab.er.24h, 150 MG PO DAILY TAKE WITH 300 MG TO EQUAL 450 MG DAILY 11/12/16 Aspirin (Aspirin) 325 Mg Tablet, 650 MG PO TID 11/12/16 Asenapine Maleate (Saphris) 10 Mg Tab.subl, 10 MG SL HS 11/12/16 Niacin (Niacin ER) 1,000 Mg Tab.er.24h, 1000 MG PO HS 10/21/16 Atorvastatin Calcium (Lipitor) 20 Mg Tablet, 20 MG PO HS 10/21/16 Glipizide (Glipizide) 5 Mg Tablet, 5 MG PO DAILY 07/11/16 Baclofen (Baclofen) 10 Mg Tablet, 5 MG PO TID 07/11/16 [elderberry] No Conflict Check, 230 MG PO BID 03/10/16 Sumatriptan Succinate (Sumatriptan Succinate) 50 Mg Tablet, 50 MG PO QID Y for HEADACHE 02/24/16 Fluticasone/Salmeterol (Advair 100-50 Diskus) 1 Disk W/Dev Inhaler, 1 PUFF INH BID Y for SHORTNESS OF AIR 02/24/16 [place]-3/Dha/Epa/Fish Oil (Fish Oil 1,000 mg Softgel) 1 Each Capsule, 2 TAB PO BID 02/24/16 Pantoprazole Sodium (Pantoprazole Sodium) 20 Mg Tablet.dr, 20 MG PO DAILY 02/24/16 Cholecalciferol (Vitamin D3) (Vitamin D) 400 Unit Capsule, 800 UNIT PO DAILY 02/24/16 Gabapentin (Gabapentin) 600 Mg Tablet, 1200 MG PO TID 09/27/15 Fluticasone Propionate (Fluticasone Prop 50 mcg/actuation Nasal Tanner) 120 Tanner /16 G Tanner, 2 SPRAY EA NOSTRIL DAILY, ML 09/27/15 Metformin HCl (Metformin HCl) 1,000 Mg Tablet, 1000 MG PO BIDWM 11/08/14 Bupropion Hcl (Wellbutrin Xl) 300 Mg Tab.sr.24h, 300 MG PO DAILY TAKE WITH 150 MG TO EQUAL 450 MG DAILY 06/17/13 Acetaminophen (Tylenol Arthritis) 650 Mg Tablet, 1300 MG PO Q8H Y for PAIN 11/06/12 Buspirone Hcl (Buspar) 15 Mg Tablet, 15 MG PO BID 11/06/12 Cetirizine Hcl (Zyrtec) 10 Mg Tablet, 10 MG PO DAILY 12/17/10 Topiramate (Topamax) 200 Mg Tablet, 400 MG PO BID 12/17/10 Face to Face Encounter I met with patient on the day of dismissal and discussed follow up appointments , medications, and safety plan. Discharge Disposition Observation discharge in fair and stable condition MAYTE OTT MD March 07, 2017 19:44
--- NOTE | 2017-03-07 20:37 | NUR ---
DISMISSAL PATIENT WAS PROVIDED WITH DISMISSAL PACKET THAT WAS COVERED BY PREVIOUS RN. PATIENT DENIED QUESTIONS AT THIS TIME. IV WAS REMOVED WITH CATHETER TIP INTACT; GAUZE AND COBAN WERE APPLIED TO SITE. PATIENT WAS HELPED INTO WHEEL CHAIR AND ESCORTED BY THIS RN AND SON'S FIANCE TO THE ED DOORS. DISCHARGE PACKET AND ALL BELONGINGS IN PATIENT'S POSSESSION. WHEN RIDE ARRIVED PATIENT WAS ASSISTED INTO PRIVATE VEHICLE FOR TRANSPORT. Addendum: 03/07/17 at 2050 by LESLEY ODOM RN ARM BANDS REMOVED. PATIENT DISMISSED AT 1957 BY THIS RN.
== END 2017-03-07 19:58 | disposition home or self-care (01) ==
LOC: ED 00:53 → EDHOLD 03:19 → CCU 04:00
PROVIDERS: ADMIT Emergency Medicine; ATTEND Internal Medicine
DX: T50.991A Poisoning by other drugs, medicaments and biological substances, accidental (unintentional), initial encounter (principal); G92 Toxic encephalopathy; E87.2 Acidosis; E86.0 Dehydration; R34 Anuria and oliguria; Y92.018 Other place in single-family (private) house as the place of occurrence of the external cause; R65.10 Systemic inflammatory response syndrome (SIRS) of non-infectious origin without acute organ dysfunction; G89.29 Other chronic pain; E66.01 Morbid (severe) obesity due to excess calories; Z68.41 Body mass index [BMI] 40.0-44.9, adult; E87.0 Hyperosmolality and hypernatremia; M51.26 Other intervertebral disc displacement, lumbar region; E11.65 Type 2 diabetes mellitus with hyperglycemia; E11.40 Type 2 diabetes mellitus with diabetic neuropathy, unspecified; I95.1 Orthostatic hypotension; E78.00 Pure hypercholesterolemia, unspecified; J45.909 Unspecified asthma, uncomplicated; K21.9 Gastro-esophageal reflux disease without esophagitis; M79.7 Fibromyalgia; G43.909 Migraine, unspecified, not intractable, without status migrainosus; F41.9 Anxiety disorder, unspecified; F32.9 Major depressive disorder, single episode, unspecified; K58.9 Irritable bowel syndrome, unspecified; M34.9 Systemic sclerosis, unspecified; Z79.82 Long term (current) use of aspirin; Z79.899 Other long term (current) drug therapy; E11.22 Type 2 diabetes mellitus with diabetic chronic kidney disease; N18.3 Chronic kidney disease, stage 3 (moderate)
CPT/HCPCS: 36415; 51702; 71010; 72128; 72131; 80053; 80069; 80307; 81003; 82010; 82803; 82948; 83605; 84145; 85025; 94640; 96361; 96372; 96374; 96375; 96376; 99285; A9270; G0378; J0780; J1170; J1644; J1650; J2405; J7030; J7611; 80048; 80306; 99218

== ENCOUNTER → 2017-03-22 | Outpatient (CLI) | payer MEDICARE, BC ==
[2017-03-22 12:05] LABS: BASOPHILS # (AUTO) 0.1 T/MM3 (0-0.2); BASOPHILS % (AUTO) 0.9 % (0-2); EOSINOPHILS # (AUTO) 0.4 T/MM3 (0-0.5); EOSINOPHILS % (AUTO) 3.7 % (0-4); HCT - HEMATOCRIT 36.8 % (36-46); HGB - HEMOGLOBIN 11.3 GM/DL (12-16); IMMATURE GRANULOCYTE # (AUTO) 0.02 T/MM3 (0.00-0.03); IMMATURE GRANULOCYTE % (AUTO) 0.2 % (0.0-0.5); LYMPHOCYTES # (AUTO) 4.7 T/MM3 (1-4.8); LYMPHOCYTES % (AUTO) 48.4 % (23-45); MEAN CORPUSCULAR HGB 27.1 UUG (26-34); MEAN CORPUSCULAR HGB CONC(MCHC 30.7 GM/DL (31-37); MEAN CORPUSCULAR VOLUME 88.2 UM3 (80-100); MEAN PLATELET VOLUME 12.1 UM3 (9.4-12.4); MONOCYTES # (AUTO) 0.5 T/MM3 (0-0.8); MONOCYTES % (AUTO) 5.6 % (0-9.0); NEUTROPHILS % (AUTO) 41.2 % (33-66); RED BLOOD COUNT 4.17 M/MM3 (4.00-5.20); WBC - WHITE BLOOD COUNT 9.6 T/MM3 (4.5-11.0)
[2017-03-23 02:54] LABS: FERRITIN 7.13 NG/ML (11-264)
== END ==
LOC: LAB 11:39
PROVIDERS: ATTEND Internal Medicine Medical Oncology
DX: D72.829 Elevated white blood cell count, unspecified (principal); D64.9 Anemia, unspecified
CPT/HCPCS: 36415; 82607; 82728; 82746; 83540; 83550; 83615; 85025

== ENCOUNTER 2018-03-23 14:35 | Inpatient (IN) ==
[2018-03-23] MEDS: SALINE FLUSH 10ml SYRINGE IVF PRN ×2 (15:08→17:19)
[2018-03-23] MEDS ORDERED: NS 1,000 ML IV ONE (15:12)
--- NOTE | 2018-03-23 15:32 | CT Scan Report ---
Indication: ms changes PROCEDURE: CT head/brain wo con: Encounter: Initial Comparison: July 10, 2016 Technique: Axial CT images through the head were performed without contrast. Iterative Reconstruction dose reducing technique was utilized. FINDINGS: The ventricles are of normal size, shape, and contour for the patient's age. The brainstem, cerebellum, and cerebral hemispheres have a normal morphology and CT attenuation. There is no evidence of midline displacement. No hemorrhage, signs of acute territorial stroke, mass effect, mass lesions, or edema is evident. The visualized portions of the skull base, midface, and calvarium demonstrate no abnormality. The paranasal sinuses are well aerated and free of significant disease. The tympanic and mastoid cavities appear normal. IMPRESSION: No acute intracranial abnormality or hemorrhage. .
--- NOTE | 2018-03-23 15:34 | XRay Report ---
INDICATION: dyspnea PROCEDURE: CHEST 2-VIEWS UPRIGHT (PA & LAT) Encounter: Initial COMPARISON: March 04, 2018 FINDINGS: The lungs are clear without evidence of focal abnormal airspace opacity. There is no pleural effusion or pneumothorax. The heart size, mediastinal contours and pulmonary vascularity are within normal limits. There is no significant skeletal abnormality. IMPRESSION: No acute cardiopulmonary disease. .
[2018-03-23] MEDS ORDERED: NALOXONE 0.4 MG/ML INJECTION IVP ONE (17:11)
--- NOTE | 2018-03-23 18:20 | Emergency Department Report ---
Dizziness HPI - General Chief Complaint: Dizziness Stated Complaint: dizzy/jerky, unable to walk, unfocused Time Seen by Provider: 03/23/18 14:41 - History of Present Illness HPI Narrative: 53-year-old female presents with "fuzziness". She states she has become more tired recently and has quit taking the iron that she was on to increase her hemoglobin. She states it caused her diarrhea and that she thought she was doing okay, but now realizes her hemaglobin is probably dropping again. She contacted her oncologist and was told to come to the emergency room for evaluation. She denies fever or chills. States she has felt confused and shaky and had a tremor the last day or 2 that is not normal for her. She does feel tired. She denies taking any new medications or extra doses of medication. Denies any head injury. No chest pain. - Related Data Home Medications Medication Instructions Recorded Confirmed Topiramate 400 mg PO BID #0 12/17/10 03/23/18 Acetaminophen [Tylenol Arthritis] 650 mg PO Q8H PRN #0 11/06/12 03/23/18 Fluticasone Nasal [place] [Flonase] 2 spray EA NOSTRIL DAILY #0 ml 09/27/15 Cholecalciferol (Vitamin D3) 800 unit PO DAILY #0 02/24/16 03/23/18 [Vitamin D3] Niacin [Niacin ER] 1,000 mg PO HS #0 10/21/16 03/23/18 BuPROPion XL [Wellbutrin Xl] 450 mg PO DAILY #0 11/12/16 03/23/18 Dicyclomine [Bentyl] 20 mg PO QID PRN 06/29/17 03/23/18 Fluticasone/Salmeterol 100/50 1 puff INH BID PRN 07/07/17 03/23/18 [Advair 100-50 Diskus] Lactaid Fast Tablet [Lactaid Fast 1 tab PO PRN PRN 07/07/17 03/23/18 Act] [place]-3/Dha/Epa/Fish Oil [Fish Oil 2,000 mg PO BID 08/31/17 03/23/18 1,000 mg Softgel] Pantoprazole Tab [Protonix Tab] 40 mg PO ACB 08/31/17 03/23/18 Alpha Lipoic Acid 600 mg PO DAILY 09/08/17 03/23/18 Aspirin [Aspirin EC] 81 mg PO DAILY 09/08/17 03/23/18 Atorvastatin [Lipitor] 40 mg PO HS 09/08/17 03/23/18 Buspirone [Buspar] 15 mg PO TID 09/08/17 03/23/18 Levocetirizine [Xyzal] 5 mg PO DAILY 09/08/17 03/23/18 SUMAtriptan succinate [Sumatriptan 50 mg PO BID PRN 09/08/17 03/23/18 Succinate] GlipiZIDE [Glucotrol] 5 mg PO DAILY 03/04/18 03/23/18 Tizanidine [Zanaflex] 8 mg PO TID 03/04/18 03/23/18 APAP/Codeine #4 [Tylenol with 1 tab PO PRN PRN 03/23/18 03/23/18 Codeine #4] Albuterol Sulfate 2.5 mg AEROSOL TID PRN 03/23/18 03/23/18 Baclofen [Lioresal] 5 mg PO Q8H PRN 03/23/18 03/23/18 Escitalopram [Lexapro] 15 mg PO DAILY 03/23/18 03/23/18 Gabapentin [Neurontin] 1,200 mg PO TID 03/23/18 03/23/18 Ibuprofen 800 mg PO Q8H PRN 03/23/18 03/23/18 Metformin [Glucophage] 1,000 mg PO BIDWM 03/23/18 03/23/18 Previous Rx's Medication Instructions Recorded Sucralfate [Carafate] 1 gm PO AC30HS #120 tab 08/01/17 Allergies Allergy/AdvReac Type Severity Reaction Status Date / Time hydrocodone Allergy Mild Itching Verified 03/23/18 15:34 lovastatin Allergy Mild Verified 03/23/18 15:34 talc Allergy Mild Itching Verified 03/23/18 15:34 adhesive Allergy Unknown Verified 03/23/18 15:34 banana Allergy Unknown Verified 03/23/18 15:40 cucumber Allergy Unknown Verified 03/23/18 15:34 diazepam Allergy Unknown HAD TO Verified 03/23/18 15:34 HAVE ROMAZICON WITH IT melon Allergy Unknown Verified 03/23/18 15:34 oxycodone Allergy Unknown Verified 03/23/18 15:34 egg yolk AdvReac Intermediate Verified 03/23/18 15:40 strawberry AdvReac Intermediate Vomiting Verified 03/23/18 15:34 naproxen AdvReac Mild Headache Verified 03/23/18 15:34 latex AdvReac Unknown Anaphylactic Verified 03/23/18 15:34 Shock Review of Systems All systems: reviewed and negative except as stated PFSH Patient Stated Medical History Migraine Yes Peripheral Neuropathy Yes Other HEENT Yes: wear glasses Angina Yes: frequently. ? cardiac relation Hypotension Yes Asthma Yes: moderate control Sleep Apnea Yes: HX OF in the past Diabetes Mellitus Type 2 Yes: oral meds Gastroesophageal Reflux Yes: moderate control Disease Anemia Yes Osteoarthritis Yes Other Musculoskeletal Yes: neuropathy, stenosis of spine, raynaud's syndrome Sepsis Yes Other Infectious Yes: Left foot osteomyelitis Anesthesia Reactions No Blood Transfusions Yes Chemotherapy No Malignant Hyperthermia No Other No Depression Yes Other Behavioral Health Yes: boarderline personality disorder Now No Clinic Medical History (Last Reviewed 12/23/17 @ 18:54 by Jamil Gallegos CNA) Iron deficiency anemia (Chronic Medical) 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 Wilkinson Neuropathy (Chronic Medical) Preceded DM, believes due to fibromyalgia Migraine headache (Chronic Medical) Osteoarthritis (Chronic Medical) Spinal stenosis, multiple sites in spine (Chronic Medical) Anxiety (Chronic Medical) GERD (gastroesophageal reflux disease) (Chronic Medical) Fibromyalgia (Chronic Medical) Between rheumatoligists currently Diabetes type 2, controlled (Chronic Medical) Hypercholesterolemia (Chronic Medical) Hypotension (Chronic Medical) Precancerous skin lesion (Resolved Medical) Asthma (Inactive Medical) Chest pain (Inactive Medical) Medical History Updates: Left foot fracture vs osteomylitis Surgical History: * Left shoulder arthroscopic repair - [address] Sotomayor in [place], [place]. * Left open rotator cuff repair - 2006 at [facility] in [place], [place]. * Bilateral CTR - 2003 at [facility] in [place], [place]. * Colonoscopy and attempted EGD - ~[address] Eastman at [facility], [place], [place]. Patient reports unable to pass EGD due to lack of sedation but normal colonoscopy findings. * Bilateral Ulnar Nerve Transposition - 2003 at [facility] in [place], [place]. * Laparoscopic Cholecystectomy - 1996 in [place], [place]. * Tonsillectomy and Adenoidectomy - [address] Langford at [facility] in [place], [place]. Family History: Family History (Last Reviewed 12/23/17 @ 18:54 by Jamil Gallegos CNA) Mother Lymphoma Paternal Grandmother Cancer of breast Heart failure Maternal Grandmother Melanoma Cervical cancer Paternal Grandfather Heart attack Stroke Gastric cancer Maternal Grandfather Heart attack Brother Migraine headache - Social History Smoking status: Never smoker Substance use type: does not use Alcohol intake: never Alcohol intake frequency: does not drink Household members: children Current occupational status: disabled Physical Exam - Limitations Limitations: no limitations - General General appearance: lethargic - Normal Exams: Head:: Normocephalic without trauma Chest/Respirations:: Clear all green, with good airflow, and symmetry bilaterally Cardiovascular:: Regular rate and rhythm, without murmur or gallop, Pulses 2+ all extremities, capillary refill, <2 seconds all extremities Abdomen:: Bowel sounds positive, soft, non-tender, non-distended, no hepatosplenomegaly, masses or bruits noted Neurological:: Patient is alert (patient is technically alert, however becomes somnolent very rapidly if there is no stimulus in the room. She does respond to instructions, but does not awake easily, requires sternal rub and then will carry on a normal conversation until she is left alone again.), and oriented, cranial nerves, motor/sensory/cerebellar, exams w/o gross deficits, to observation Psychiatric:: Patient exhibits, emotion and affect ( ) - Neurological Exam Neurological exam: Present: oriented X3, CN II-XII intact, reflexes normal, other (patient does have horizontal nystagmus on eye exam, pupils are sluggish but responsive. And tremor noted on the arms.). Absent: motor sensory deficit Course Vital Signs Temperature 98.2 F 03/23/18 14:53 Pulse Rate 54 L 03/23/18 14:53 Respiratory Rate 16 03/23/18 14:53 Blood Pressure 143/68 H 03/23/18 14:53 Pulse Oximetry 99 03/23/18 14:53 Temperature 98.2 F 03/23/18 14:53 Pulse Rate 50 L 03/23/18 17:15 Respiratory Rate 12 03/23/18 17:15 Blood Pressure 127/65 03/23/18 17:15 Pulse Oximetry 97 05/31/18 17:15 Dizziness - MDM Narrative Medical decision making narrative: Peripheral IV placed, patient given 500 ML normal saline. Labs including CBC, CMP, UA and drug screen all returned normal except for positive opiates on drug screen. Hemoglobin is low at 10.1, but consistent with previous. Chest x-ray and CT head are negative. Patient stated she did take Tylenol for 2 days ago but otherwise has not taken any narcotics. She was given a trial of Narcan 0.4 mg IV which did nothing to change her mental status or wakefulness. At this point I have no good etiology for her mental status change. This was discussed with the hospitalist and patient was accepted observation overnight due to sedation, mental status change. - Differential Diagnosis Likely: adverse reaction to drug, orthostatic hypotension, cerebrovascular accident, transient cerebral ischemia - Medical Records Attestation: I reviewed the patient's medical records. - Lab Data Attestation: I reviewed the patient's lab results. Result diagrams: 03/23/18 15:10 03/23/18 15:10 Lab Results 03/23/18 03/23/18 03/23/18 Range/Units 15:10 15:10 15:37 WBC 8.9 (4.5-11.0) T/MM3 RBC 3.72 L (4.00-5.20) M/MM3 Hgb 10.1 L (12-16) GM/DL Hct 33.2 L (36-46) % MCV 89.2 (80-100) UM3 MCH 27.2 (26-34) UUG MCHC 30.4 L (31-37) GM/DL RDW Std Deviation 50.0 (36.9-50.2) FL Plt Count 255 (130-400) T/MM3 MPV 11.2 (9.4-12.4) UM3 Neutrophils % (Manual) 57.0 (33-66) % Lymphocytes % (Manual) 32.0 (23-45) % Monocytes % (Manual) 7.0 (0-9.0) % Eosinophils % (Manual) 4.0 (0-4) % Neutrophils # (Manual) 5.1 (1.8-7.7) T/MM3 Lymphocytes # (Manual) 2.8 (1-4.8) T/MM3 Monocytes # (Manual) 0.6 (0-0.8) T/MM3 Eosinophils # (Manual) 0.4 (0-0.5) T/MM3 RBC Morph Comment Normal Turbidity < 20 (0-20) Sodium 149 H (134-144) MEQ/L Potassium 4.6 (3.6-5) MEQ/L Chloride 115 H (98-107) MEQ/L Carbon Dioxide 19 L (22-30) MEQ/L Anion Gap 15 (5-15) meq/L BUN 22.0 H (7-17) MG/DL Creatinine 0.8 (0.7-1.2) mg/dL GFR Calculation 76 BUN/Creatinine Ratio 28 H (6-26) RATIO Glucose 159 H (65-110) MG/DL Calculated Osmolality 292 H (261-280) MOSM/KG Calcium 9.0 (8.4-10.2) MG/DL Total Bilirubin 0.30 (0.20-1.30) MG/DL Icterus Index < 2 (0-7) AST 21 (14-36) U/L ALT 13 (1-35) U/L Alkaline Phosphatase 64 (38-126) U/L Total Protein 7.5 (6.3-8.2) g/dL Albumin 4.4 (3.5-5.0) g/dL Globulin 3.1 (2.4-3.6) G/DL Albumin/Globulin Ratio 1.4 (1.1-2.2) RATIO Specimen Hemolysis 33 H (0-25) Ur Collection Type Urine, void-cc/notcc Urine Color Yellow (YELLOW) Urine Clarity Sl cloudy Urine pH 5.5 (5.0-8.0) Ur Specific [place] 1.020 (1.015-1.025) Urine Protein Trace A (NEGATIVE) Urine Glucose (UA) Negative (NEGATIVE) Urine Ketones Trace A (NEGATIVE) Urine Occult Blood Negative (NEGATIVE) Urine Nitrate Negative (NEGATIVE) Urine Bilirubin Negative (NEGATIVE) Urine Urobilinogen 0.2 (NORMAL) EU/DL Ur Leukocyte Esterase Trace A (NEGATIVE) Urinalysis Comment Microscopic not ind. Urine Opiates Screen ng/mL Ur Oxycodone Screen ng/mL Urine Methadone Screen ng/mL Ur Propoxyphene Screen ng/mL Ur Barbiturates Screen ng/mL U Tricyclic Antidepress ng/mL Ur Phencyclidine Scrn ng/mL Ur Amphetamines Screen ng/mL U Methamphetamines Scrn ng/mL U Benzodiazepines Scrn ng/mL Urine Cocaine Screen ng/mL U Cannabinoids Screen ng/mL Ur Drug Screen Confirm 03/23/18 03/23/18 Range/Units 15:37 15:37 WBC (4.5-11.0) T/MM3 RBC (4.00-5.20) M/MM3 Hgb (12-16) GM/DL Hct (36-46) % MCV (80-100) UM3 MCH (26-34) UUG MCHC (31-37) GM/DL RDW Std Deviation (36.9-50.2) FL Plt Count (130-400) T/MM3 MPV (9.4-12.4) UM3 Neutrophils % (Manual) (33-66) % Lymphocytes % (Manual) (23-45) % Monocytes % (Manual) (0-9.0) % Eosinophils % (Manual) (0-4) % Neutrophils # (Manual) (1.8-7.7) T/MM3 Lymphocytes # (Manual) (1-4.8) T/MM3 Monocytes # (Manual) (0-0.8) T/MM3 Eosinophils # (Manual) (0-0.5) T/MM3 RBC Morph Comment Turbidity (0-20) Sodium (134-144) MEQ/L Potassium (3.6-5) MEQ/L Chloride (98-107) MEQ/L Carbon Dioxide (22-30) MEQ/L Anion Gap (5-15) meq/L BUN (7-17) MG/DL Creatinine (0.7-1.2) mg/dL GFR Calculation BUN/Creatinine Ratio (6-26) RATIO Glucose (65-110) MG/DL Calculated Osmolality (261-280) MOSM/KG Calcium (8.4-10.2) MG/DL Total Bilirubin (0.20-1.30) MG/DL Icterus Index (0-7) AST (14-36) U/L ALT (1-35) U/L Alkaline Phosphatase (38-126) U/L Total Protein (6.3-8.2) g/dL Albumin (3.5-5.0) g/dL Globulin (2.4-3.6) G/DL Albumin/Globulin Ratio (1.1-2.2) RATIO Specimen Hemolysis (0-25) Ur Collection Type Urine Color (YELLOW) Urine Clarity Urine pH (5.0-8.0) Ur Specific [place] (1.015-1.025) Urine Protein (NEGATIVE) Urine Glucose (UA) (NEGATIVE) Urine Ketones (NEGATIVE) Urine Occult Blood (NEGATIVE) Urine Nitrate (NEGATIVE) Urine Bilirubin (NEGATIVE) Urine Urobilinogen (NORMAL) EU/DL Ur Leukocyte Esterase (NEGATIVE) Urinalysis Comment Urine Opiates Screen Positive ng/mL Ur Oxycodone Screen Negative ng/mL Urine Methadone Screen Negative ng/mL Ur Propoxyphene Screen Negative ng/mL Ur Barbiturates Screen Negative ng/mL U Tricyclic Antidepress Negative ng/mL Ur Phencyclidine Scrn Negative ng/mL Ur Amphetamines Screen Negative ng/mL U Methamphetamines Scrn Negative ng/mL U Benzodiazepines Scrn Negative ng/mL Urine Cocaine Screen Negative ng/mL U Cannabinoids Screen Negative ng/mL Ur Drug Screen Confirm Sent out - Radiology Data Attestation: I reviewed the patient's radiology results. - EKG Data EKG #1 EKG results narrative: 52 bpm EKG shows normal: sinus rhythm, axis, QRS complexes, ST-T waves Rate: bradycardia Rhythm: NSR Interpretation: no acute changes Disposition Clinical Impression: Mental status change Disposition: 01 Discharged Home, Self-Care Condition: Stable Prescriptions: No Action Fluticasone Nasal [place] [Flonase] 2 spray EA NOSTRIL DAILY #0 ml Cholecalciferol (Vitamin D3) [Vitamin D3] 800 unit PO DAILY #0 Niacin [Niacin ER] 1,000 mg PO HS #0 BuPROPion XL [Wellbutrin Xl] 450 mg PO DAILY #0 Fluticasone/Salmeterol 100/50 [Advair 100-50 Diskus] 1 puff INH BID PRN PRN Reason: Shortness Of Air/Wheezing Lactaid Fast Tablet [Lactaid Fast Act] 1 tab PO PRN PRN PRN Reason: Prn Orders Sucralfate [Carafate] 1 gm PO AC30HS #120 tab Pantoprazole Tab [Protonix Tab] 40 mg PO ACB [place]-3/Dha/Epa/Fish Oil [Fish Oil 1,000 mg Softgel] 2,000 mg PO BID Buspirone [Buspar] 15 mg PO TID Aspirin [Aspirin EC] 81 mg PO DAILY Alpha Lipoic Acid 600 mg PO DAILY Levocetirizine [Xyzal] 5 mg PO DAILY Tizanidine [Zanaflex] 8 mg PO TID Gabapentin [Neurontin] 1,200 mg PO TID Albuterol Sulfate 2.5 mg AEROSOL TID PRN PRN Reason: Shortness Of Air/Wheezing Ibuprofen 800 mg PO Q8H PRN PRN Reason: Pain Escitalopram [Lexapro] 15 mg PO DAILY Metformin [Glucophage] 1,000 mg PO BIDWM Topiramate 400 mg PO BID #0 Acetaminophen [Tylenol Arthritis] 650 mg PO Q8H PRN #0 PRN Reason: PAIN Dicyclomine [Bentyl] 20 mg PO QID PRN PRN Reason: Prn Orders SUMAtriptan succinate [Sumatriptan Succinate] 50 mg PO BID PRN PRN Reason: Migraine Headache Atorvastatin [Lipitor] 40 mg PO HS GlipiZIDE [Glucotrol] 5 mg PO DAILY Baclofen [Lioresal] 5 mg PO Q8H PRN PRN Reason: Prn Orders APAP/Codeine #4 [Tylenol with Codeine #4] 1 tab PO PRN PRN PRN Reason: Pain Referrals: So Lua APRN [Primary Care Provider] - Time of Disposition: 18:25 - Seen By: physician
[2018-03-23 19:00] VITALS: BMI 42.8
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
[2018-03-23] MEDS ORDERED: DICYCLOMINE 20mg TABLET PO PRN (19:31)
[2018-03-23] MEDS ORDERED: BACLOFEN 10 MG TABLET PO PRN (19:31)
[2018-03-23] MEDS ORDERED: ALBUTEROL 2.5mg/3ml (0.083%) NEB AEROSOL PRN (19:31)
[2018-03-23] MEDS ORDERED: MECLIZINE 25 MG TABLET PO PRN (19:35)
[2018-03-23] MEDS ORDERED: NS 1,000 ML IV SCH (19:45)
[2018-03-23] MEDS ORDERED: GABAPENTIN 600 MG TABLET PO SCH (21:00)
[2018-03-23] MEDS ORDERED: NON-FORMULARY MEDICATION 1 EACH EACH (Omega-3/Dha/Epa/Fish Oil [Fish Oil 1,000 Mg Softgel] PO SCH (21:00)
[2018-03-23] MEDS ORDERED: TOPIRAMATE 400 MG PO SCH (21:00)
[2018-03-23] MEDS: 1/2 NS 1,000 ML IV SCH (21:21)
[2018-03-23] MEDS: ENOXAPARIN 40 MG/0.4 ML INJECTION SQ SCH (21:22)
[2018-03-23] MEDS: ATORVASTATIN 40 MG TABLET PO SCH (21:22)
[2018-03-23] MEDS: GABAPENTIN 600 MG TABLET PO SCH (21:23)
[2018-03-23] MEDS: SUCRALFATE 1 GM TABLET PO SCH (21:23)
[2018-03-23] MEDS: MELATONIN 1 MG TABLET PO SCH (22:01)
[2018-03-23] MEDS: BUSPIRONE 15 MG TABLET PO SCH (22:01)
[2018-03-24] MEDS: 1/2 NS 1,000 ML IV SCH ×3 (05:51→21:16)
[2018-03-24] MEDS: PANTOPRAZOLE 40 MG TABLET PO SCH (05:56)
[2018-03-24] MEDS: METFORMIN 1,000 MG TABLET PO SCH ×3 (08:30→17:36)
[2018-03-24] MEDS: SUCRALFATE 1 GM TABLET PO SCH ×5 (08:30→21:25)
[2018-03-24] MEDS: GlipiZIDE 5 MG TABLET PO SCH (08:30)
[2018-03-24] MEDS: BuPROPion XL 150mg (24HR) TABLET PO SCH (08:31)
[2018-03-24] MEDS: ENOXAPARIN 40 MG/0.4 ML INJECTION SQ SCH (08:32)
[2018-03-24] MEDS: BUSPIRONE 15 MG TABLET PO SCH ×3 (08:32→21:23)
[2018-03-24] MEDS: ESCITALOPRAM 10 MG TABLET PO SCH (08:33)
[2018-03-24] MEDS: LEVOCETIRIZINE 5 MG TABLET PO SCH (08:35)
[2018-03-24] MEDS: GABAPENTIN 600 MG TABLET PO SCH ×3 (08:35→21:21)
[2018-03-24] MEDS: OMEGA-3 ACID ESTERS 1 GM CAPSULE PO SCH ×2 (08:36→21:24)
[2018-03-24] MEDS: ASPIRIN *EC* 81 MG TABLET PO SCH (08:43)
[2018-03-24] MEDS ORDERED: TOPIRAMATE 100 MG TABLET PO SCH (09:00)
[2018-03-24] MEDS ORDERED: SUMATRIPTAN 25 MG TABLET PO PRN (10:27)
--- NOTE | 2018-03-24 11:52 | Consultation ---
DATE OF CONSULTATION 03/24/[address] Brantley The patient's chief complaint is confusion, dizziness and fatigue. HISTORY OF PRESENT ILLNESS The patient is a 53-year-old female with history of diabetes, hypotension and migraine headaches. The patient has been complaining of recurrent dizziness described as feeling out a fit. During her dizziness she has had difficulty concentrating, reading and functioning. She described having some recurrent headache with the dizziness. The patient's symptoms got worse 4 days ago and she went to her primary care physician because of shakiness and difficulty standing and walking. She was found to be dehydrated and she was given fluids. The patient visited the ER several times for similar symptoms during which she always has mild dehydration and her symptoms tend to increase with fluid. The patient has a history of low blood pressure in the 100/60 range. She denies having any blood pressure less than 80/50. She has had no recent infection. She does have some chronic fungal infection under her breasts for which she has taken some medications with no particular benefit. The patient had no focal weakness or numbness. Her speech continued to be slow due to concentration problem. She has had slow thinking process associated with her dizziness. The patient had a CT of the head in the ER that showed no acute abnormalities. She had some small white matter changes consistent with microvascular disease. Her lab work showed evidence of elevated BUN and creatinine. She also had elevated sodium level. The patient has a history of neuropathy associated with diabetes. She was also diagnosed with fibromyalgia in the past. She has been treated for chronic anemia. She has taken high dosage of Topamax for migraine prevention. This can also be causing some of the slow thinking process and foggy-mindedness the patient is having. PHYSICAL EXAMINATION The patient was awake, alert, oriented x 3. Pupils were round, reactive and equal. Extraocular muscles were intact. Visual field was full. Speech was articulate and at a normal pace. Motor examination was 5-/5 in all extremities. Sensory examination was limited to light touch and pinprick in the legs up to the calves. Deep tendon reflexes were 2-/4. Coordination for [id number] was normal bilaterally. ASSESSMENT Recurrent dizziness associated with dysarthria, slow thinking process and a headache. This can be a manifestation of hypotension. Other consideration includes migrainous headache, especially confusional migraine. The patient has taken high dosage of Topamax for migraine prevention. This can also cause her to have a problem with slow thinking process and confusion. The patient was found to have hypernatremia and mild dehydration on multiple locations. She has had difficulty getting more fluid because of the edema she has. PLAN 1. Optimize treatment for diabetes and prevent fluctuations. 2. Monitor blood pressure closely and consider adding midodrine if the patient has a consistent hypotensive problem. 3. Lower the Topamax dosage to 100 mg p.o. b.i.d. to decrease the side effect of slow thinking process and confusion associated with medication. 4. Provide good fluid intake and consider adding some diuretics to help with edema. 5. Check for any source of infection which can cause the patient to have worsening in mental functioning. The patient has had a chronic fungal infection under her breasts which needs to be evaluated and treated. MTDD
[2018-03-24] MEDS ORDERED: IBUPROFEN 200 MG TABLET PO PRN (11:53)
[2018-03-24] MEDS ORDERED: CODEINE PO PRN (11:53)
[2018-03-24] MEDS ORDERED: APAP PO PRN (11:53)
--- NOTE | 2018-03-24 15:32 | Magnetic Resonance Report ---
Indication: confusion PROCEDURE: MR head/brain wo con: Encounter: Initial Comparisons: Head CT dated March 23, 2018 Technique: Multiplanar, multisequence, MR imaging of the head without contrast was acquired. FINDINGS: The ventricles are of normal size, shape, and contour for the patient's age. The brain stem, cerebellum, and cerebral hemispheres have a normal morphologic appearance as well as MR signal intensity on all pulse sequences. There are no areas of restricted diffusion on diffusion weighted imaging to suggest an acute infarct. There is no evidence of an intracranial mass lesion, intracranial hemorrhage, or hydrocephalus. The visualized portions of the orbits, calvarium, paranasal sinuses, and skull base demonstrate no significant abnormality. IMPRESSION: Unremarkable MRI of the head for the patient's age without contrast. .
[2018-03-24] MEDS: SALINE FLUSH 10ml SYRINGE IVF PRN (16:24)
[2018-03-24] MEDS: APAP/CODEINE 300 MG/30 MG TABLET PO PRN (16:32)
--- NOTE | 2018-03-24 18:45 | Progress Note ---
- Date 03/24/18 Subjective: Ellyn is seen today in follow-up. Overall she is feeling better than earlier today. She did have a migraine headache. She continues to feel that her thinking is not "clear". She states that she knows that something is wrong, however, nobody can figure out what it is. She states she has had intermittent episodes like this for the past several years. Eyes having chest pain, shortness of breath or GI complaints. She is worried about her ankle swelling while she is in the hospital. Appetite is good. Objective Vital signs: Temperature 96.1 F L 03/24/18 07:26 Pulse Rate 91 03/24/18 07:26 Respiratory Rate 18 03/24/18 07:26 Blood Pressure 186/84 H 03/24/18 07:26 Pulse Oximetry 98 03/24/18 07:26 - Constitutional Present: no acute distress, well nourished, well developed - Routine HEENT Exam Eye: Present: EOMI ENT: Present: mucous membranes moist, dentition normal - Routine Respiratory Exam Present: CTA bilaterally. Absent: wheezes - Routine Cardiovascular Exam Present: RRR, S1, S2. Absent: murmur - Routine Abdominal Exam Present: soft, normoactive bowel sounds, non distended. Absent: tenderness - Routine Extremities Exam Present: normal capillary refill - Routine Skin Exam Present: dry, warm - Routine Neurological Exam Present: alert, oriented X3, CN II-XII intact, moving all extremities - Routine Lymphatic Exam Lymphatic: Absent: adenopathy - Routine Psychiatric Exam Present: normal affect, cooperative Results - Labs CBC & Chem 7: 03/24/18 04:33 03/24/18 18:43 Assessment and Plan (1) Mental status change Current visit: Yes Status: Acute Assessment and Plan: Impression: Persistent vertigo Encephalopathy Subjective altered mental status Hypernatremia (POA) Anxiety Personality disorder Dehydration Fibromyalgia Peripheral neuropathy Diabetes Insomnia Morbid Obesity with BMI 42.9 Plan Appreciate consultation by Dr. Santoyo. He did recommend decreasing dose of Topamax to 100 twice a day, however, patient does not want to do this. MRI of the brain was normal Persistent hypernatremia despite IV fluids. Will change patient to inpatient status. Recheck BMP at this time IV fluids changed to half-normal saline. Will place ZULAY hose to bilateral lower extremities to help avoid edema Consult placed to Dr. Ochoa for further psychological evaluation Suspect symptoms may be stress and anxiety related. Repeat CBC and BMP tomorrow morning to follow blood counts, renal function and electrolytes Case discussed with attending, Dr. Brantley DVT Prophylaxis: SCD's Resuscitation Status: Full Code - Time spent with patient Time with patient PN: 25 minutes - Physician Narrative Physician: Markus Brantley MD Narrative: Date: 03/24/18 Time: 2034 Have independently interviewed and examined pt. Chart reviewed. Case discussed with CM and my WAFER LINE WORKER. Care plan developed with my supervision; agree with above. Doing fair-still feels foggy. Worked some with therapy, difficult due to neuropathic pain. Leery of decreasing Topamax as worries will increase her pain. Lungs: decreased, no distress CV: regular AB: soft obese nt EXT: trace edema Plan: Change to inpatient status due to persistent encephalopathy and hypernatremia. Continue IVF, decreasing to 75cc/hr. Encourage therapy. Decrease Topamax as per neuro suggestion. Hospital Course Summary Disclaimer: The visit summary below is not to be considered part of the above Progress Note. Hospital Course: 03/23/18 Pt has had significant psychosocial stressors over the last week. Suspect anxiety and mental health may be siegel role in her symptoms, however we do need to ensure she has not had an subtle neurologic event. We'll order a MRI of the brain. Assess lipid panel. Start low-dose enteric-coated aspirin today. Hemoglobin does appear stable. She is scheduled to see Dr. Wilkinson in the morning, that should be okay to reschedule that. Chronic anemia, with a recent EGD showing gastritis. Will review need for medication for GI protection. If she continues to have severe anxiety, we may need to consult psychiatry for further assessment. She has well established [facility], and also sees a counselor weekly on Tuesday. Please note, however, that she did have to miss her counseling appointment this week due to the holiday. Will restart melatonin to ensure that she can sleep tonight. Provide IV fluids of 1/2NS at 125cc/hr for dehydration. Repeat labs in the morning. When necessary meclizine for vertigo if needed. Continue home medications as appropriate. Will add Lovenox for DVT px. 03/24/18 Persistent encephalopathy and hypernatremia despite IV fluids. Will change patient to inpatient status. Appreciate consultation by Dr. Santoyo. He did recommend decreasing dose of Topamax to 100 twice a day, however, patient does not want to do this. MRI of the brain was normal. Will place ZULAY hose to bilateral lower extremities to help avoid edema. Consult placed to Dr. Ochoa for further psychological evaluation Suspect symptoms may be stress and anxiety related. Repeat CBC and BMP tomorrow morning to follow blood counts, renal function and electrolytes.
[2018-03-24] MEDS: MELATONIN 1 MG TABLET PO SCH (21:21)
[2018-03-24] MEDS: TOPIRAMATE 100 MG TABLET PO SCH (21:25)
[2018-03-24] MEDS: ATORVASTATIN 40 MG TABLET PO SCH (21:46)
[2018-03-25] MEDS: PANTOPRAZOLE 40 MG TABLET PO SCH (07:01)
[2018-03-25] MEDS: SUCRALFATE 1 GM TABLET PO SCH ×3 (07:01→17:31)
[2018-03-25 08:18] VITALS: O2SAT 99
[2018-03-25] MEDS: ASPIRIN *EC* 81 MG TABLET PO SCH (08:32)
[2018-03-25] MEDS: APAP/CODEINE 300 MG/30 MG TABLET PO PRN ×2 (08:32→15:31)
[2018-03-25] MEDS: BuPROPion XL 150mg (24HR) TABLET PO SCH (08:33)
[2018-03-25] MEDS: ESCITALOPRAM 10 MG TABLET PO SCH (08:33)
[2018-03-25] MEDS: LEVOCETIRIZINE 5 MG TABLET PO SCH (08:33)
[2018-03-25] MEDS: OMEGA-3 ACID ESTERS 1 GM CAPSULE PO SCH (08:33)
[2018-03-25] MEDS: GlipiZIDE 5 MG TABLET PO SCH (08:34)
[2018-03-25] MEDS: TOPIRAMATE 100 MG TABLET PO SCH (08:34)
[2018-03-25] MEDS: METFORMIN 1,000 MG TABLET PO SCH ×2 (08:34→17:30)
[2018-03-25] MEDS: BUSPIRONE 15 MG TABLET PO SCH ×2 (08:34→15:26)
[2018-03-25] MEDS: GABAPENTIN 600 MG TABLET PO SCH ×2 (08:34→15:25)
[2018-03-25] MEDS: ENOXAPARIN 40 MG/0.4 ML INJECTION SQ SCH (08:35)
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
[2018-03-25 14:54] VITALS: BP 110/68; PULSE 67; RESP 16; TEMP 97.7
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
[2018-03-25] MEDS: 1/2 NS 1,000 ML IV SCH (16:44)
[2018-03-26] MEDS ORDERED: GlipiZIDE 5 MG TABLET PO SCH (07:30)
== END 2018-03-25 18:28 | disposition home or self-care (01) | DRG 71 ==
LOC: EDHOLD 14:35 → ED 14:35 → MED 18:43
PROVIDERS: ADMIT Hospitalist; ATTEND Hospitalist